=== PATIENT | male | born 1960 | race Caucasian/White ===

== ENCOUNTER 2021-11-24 14:44 | Outpatient (CLI) | payer MEDICAID, SELFPAY ==
--- NOTE | 2021-11-24 14:57 | RAD_ITS ---
History: PAIN Thoracic spine views: Findings: No fracture, subluxation or paraspinal mass. Diffuse vertebral body osteophytosis without disc space narrowing. No focal bone lesion. IMPRESSION: Mild diffuse spondylosis. at 1615 Reported and signed by: Asa Browning MD Electronically Signed: Asa Browning MD at 16:14 EST , RAD/Thoracic Spine 3 Views
== END 2021-11-24 23:59 | disposition short-term general hospital (02) ==
LOC: MTRAD 14:50
PROVIDERS: PCP Family Medicine; Referring Provider Anesthesiology Pain Medicine; Visit Provider Anesthesiology Pain Medicine
DX: R07.82 Intercostal pain (principal)
CPT/HCPCS: 72072

== ENCOUNTER 2021-12-10 16:22 | Inpatient (IN) | payer MEDICAID, SELFPAY ==
[2021-12-10] VITALS (13 sets, daily range): BP systolic 69–129; BP diastolic 54–115; PULSE 112–151; RESP 31–40; TEMP 36.5–36.8; O2SAT 91–100; BMI 28.2; BMI 28.4
--- NOTE | 2021-12-10 16:32 | EKG12_ITS ---
Test Reason : SOB Blood Pressure : / mmHG Vent. Rate : 149 BPM Atrial Rate : 149 BPM P-R Int : 122 ms QRS Dur : 106 ms QT Int : 266 ms P-R-T Axes : 070 099 -06 degrees QTc Int : 418 ms Sinus tachycardia Right ventricular hypertrophy with repolarization abnormality T wave abnormality, consider inferior ischemia Abnormal ECG Confirmed by KRISTINA CHUNG, JOSE ANTONIO ([id number]), purchase request editor TAJ MERAZ ([id number]) on 12/11/2021 10:23:07 A M Referred By: STEVENSON/MADELEINE Confirmed By:SUKHI ACEVEDO MD
--- NOTE | 2021-12-10 16:35 | NURSING ---
NO OLD EKGS
--- NOTE | 2021-12-10 16:43 | ED.VIS.DYS ---
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 Sees pain specialist. Smokes a pack a day and drinks 4 beers a day. States has been short of breath last 2 to 3 days. Subjective fever with diaphoresis. Also diarrhea today no melena. No chest pain. 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 Is currently on no blood thinners. He said that was years ago related to trauma. He said no recent hospitalizations. Denies any leg pain or swelling. No hemoptysis. PE Risk Factors: Positive for Prior DVT or PE; Negative for Cancer, OCP + Smoking + > 35, Recent immobilization, Recent surgery and Recent travel Prior similar symptoms: No Recent Illness/Hospitalization: No PFSH PFSH Medical History Alcohol abuse Anxiety Hearing loss, left Pulmonary embolism Smoker Home Medications gabapentin 600 mg PO TID 12/10/21 [History Last Taken 12/09/21] lidocaine 1 - 3 patch TRANSDERMAL Q12H 12/10/21 [History Last Taken 12/09/21] lorazepam 0.25 mg PO DAILY PRN 12/10/21 [History Last Taken Unknown] Allergy/AdvReac Type Severity Reaction Status Date / Time No Known Allergies Allergy Verified 12/10/21 16:22 Social History Smoking Status: Heavy Smoker (>10/day) ROS ROS ED ROS Narrative Fast heart rate. Shortness of breath. Diarrhea. Subjective fever. Review of Systems ROS Unobtainable: Denies due to encephalopathy Constitutional Constitutional ED: Reports fever(s); Denies chills or sweats Eyes Eyes: Denies change in vision ENT ENT ED: Denies ear pain Cardiovascular Cardiovascular: Reports palpitations and racing heartbeat; Denies chest pain Respiratory/Chest Respiratory/Chest: Reports dyspnea; Denies cough or sputum Gastrointestinal Gastrointestinal: Reports diarrhea; Denies abdominal pain, nausea or vomiting Genitourinary Genitourinary ED: Denies dysuria Musculoskeletal Musculoskeletal: Denies myalgias Integumentary Denies rash Neurologic Neurologic: Denies headache(s) Psychiatric Psychiatric: Denies depression Endocrine Endocrinology: Denies polyuria Hematologic/Lymphatic Hematologic/Lymphatic: Denies easy bruising Allergic/Immunologic Allergic/Immunologic ED: Denies urticaria EXAM Physical Exam Narrative Exam Narrative: Middle-aged male blood pressure is low at 94/64 his heart rate is 151. He is afebrile. His initial room air pulse ox is 91% borderline hypoxic on 3 L 95%. He does not look septic or toxic. H EENT exam unremarkable neck nontender no thyromegaly. No lymphadenopathy. Lungs clear to auscultation bilaterally. Heart tachycardic rate about 150 no murmur. Chest wall nontender. Abdomen soft nontender. Normal bowel sounds no peritoneal signs. Moving all 4 extremities. Calves nontender without edema or cords. Normal motor strength both upper and lower extremities. Back nontender. Thank you Const Vital Signs: 12/10/21 16:25 12/10/21 16:29 12/10/21 16:41 Temperature 98.2 F 98.2 F Temperature Source Oral Oral Pulse Rate 151 H 148 H Respiratory Rate 39 H 34 H Respiratory Effort Short of Breath Blood Pressure 94/64 95/68 Blood Pressure Mean 74 77 Pulse Ox 91 95 95 Oxygen Delivery Method Room Air Nasal Cannula Nasal Cannula Oxygen Flow Rate (L/min) 3 3 Positive well nourished and well developed; Negative for obese, cachectic, contractures or unkempt General Appearance ED: well developed and NAD; Negative for unkempt, cachectic, contractures or pallor Nutritional Appearance: Negative for cachectic or obese HEENT Reports moist mucous membranes atraumatic; Negative for trauma Eyes PERRL and EOMs intact bilaterally Neck no lymphadenopathy, supple, no meningeal signs and no JVD General: Negative for tenderness Resp normal respiratory effort and clear to auscultation bilaterally Auscultation: Negative for rales, rhonchi or wheezes Cardio regular rhythm, S1 normal heart sound, S2 normal heart sound and no murmurs; Negative for regular rate Rate: tachycardic GI non-tender, non-distended and no masses Auscultation: normoactive bowel sounds Palpation: soft; Negative for tender, guarding or rebound tenderness present Back/Spine no CVA tenderness and normal to inspection General Back: Negative for CVA tenderness or tenderness Extremity normal to inspection General Extremety ED: Yes edema; Negative for tenderness General Extremity: edema Neuro oriented x3 Sensorium / Orientation: alert, oriented to person, oriented to place and oriented to time; Negative for orientation impaired, confused, lethargic or stuporous Motor Exam: strength 5/5 throughout Psych mental status grossly normal Appearance: Negative for unkempt Thought Process: normal thought process Skin no wounds and No skin turgor normal General Skin Exam: Negative for jaundice or pallor Lesions: no lesions Rashes: no rashes MDM MDM MDM Narrative Medical decision making narrative: 60-year-old male tachycardic and hypotensive with borderline hypoxia/shortness of breath last several days. Prior history of DVT and PE currently on no blood thinners. This may be secondary dysrhythmia like A. fib or flutter could be secondary to infectious etiology or PE. Undergoing cardiac work-up along with a D-dimer chest x-ray and EKG. Patient will be given Identicard because his EKG is a tachycardia at 149 1 chest fluid ounce to see if I can determine the exact rhythm. Repeat exam patient doing better but still ill at 6:45 PM. Heart rate around 130s received almost a liter of fluid again a second. His current pressure is 92/65. Second IV will be started. I believe he is a left upper lobe pneumonia and is septic from it. He will be started on IV antibiotics and admitted. Most likely will need to go to the ICU. Also the patient was given Identicard to try to identify his rhythm because it was between either sinus tachycardia versus A. fib or flutter he was given Identicard and his heart rate slowed about 120 and he seemed to have P waves with sinus a sinus tachycardia due to his sepsis. I have spoken to the hospitalist at 7:15 PM patient will be admitted to the ICU. Lab Data Attestation: I reviewed the patient's lab results. Lab results narrative: CBC showed elevated white count 14.7. H&H of 16 and 49. Platelets 185. Electrolytes show sodium 134. Gap 11 BUN 23 creatinine 2. Troponin is elevated 335. D-dimer is elevated at 15.19. Due to his creatinine of 2 I cannot do a CTA of his chest at this time. Lactic acid is elevated 3.5. And his TSH is normal at 2.4. Labs: Laboratory Results - last 24 hr 12/10/21 12/10/21 12/10/21 16:30 16:30 16:30 WBC 14.7 H RBC 5.49 Hgb 16.9 H Hct 49.9 MCV 90.9 MCH 30.8 MCHC 33.9 RDW Std Deviation 49.1 H RDW Coeff of Tone 14.6 Plt Count 185 MPV 10.9 Immature Gran % (Auto) 1.100 H Neut % (Auto) 81.2 H Lymph % (Auto) 10.3 L [place] % (Auto) 7.0 Eos % (Auto) 0.1 Baso % (Auto) 0.3 Absolute Neuts (auto) 12.0 H Absolute Lymphs (auto) 1.52 Nucleated RBC % 0 D-Dimer Quant (PE/DVT) 15.19 H* Sodium 134 L Potassium 4.4 Chloride 100 Carbon Dioxide 23.0 Anion Gap 11 BUN 23 H Creatinine 2.05 H Estim Creat Clear Calc 40.06 Est GFR (MDRD) Af Amer 43 L Est GFR (MDRD) Non-Af 35 L BUN/Creatinine Ratio 11.2 Glucose 209 H Lactic Acid Calcium 9.6 Troponin I High Sens 335 H* TSH 12/10/21 12/10/21 12/10/21 16:30 16:30 17:56 WBC RBC Hgb Hct MCV MCH MCHC RDW Std Deviation RDW Coeff of Tone Plt Count MPV Immature Gran % (Auto) Neut % (Auto) Lymph % (Auto) [place] % (Auto) Eos % (Auto) Baso % (Auto) Absolute Neuts (auto) Absolute Lymphs (auto) Nucleated RBC % D-Dimer Quant (PE/DVT) Sodium Potassium Chloride Carbon Dioxide Anion Gap BUN Creatinine Estim Creat Clear Calc Est GFR (MDRD) Af Amer Est GFR (MDRD) Non-Af BUN/Creatinine Ratio Glucose Lactic Acid 3.5 H* Calcium Troponin I High Sens 510 H* TSH 2.41 Cancelled Radiography Chest X-Ray - ED: 1 View and Read by ED Physician Diagnostic Testing: Clinical Impression(s) from Imaging Studies Chest X-Ray 12/10/21 16:55 IMPRESSION: Patchy left lung opacities may represent pneumonia and small effusion. Electronically Signed: Adonis Zaarte MD at 17:32 EST , Pneumonia. This could also be Covid pneumonitis but it is only unilateral on the left.Portable chest x-ray single view interpreted myself and radiologist looks like left upper lobe. I think that is less likely. This to be treated as a bacterial pneumonia until proven otherwise. Rhythm Strip Rhythm Strip: Tachycardia Rate: 149 Ectopy: None EKG Initial EKG: Attestation: I personally reviewed and interpreted this EKG as follows: Interpretation: No Acute Injury Pattern Comments: Tachycardia rate of 149. Inverted T waves in the anterolateral leads and also in lead III. No ST elevation. Prior EKG tracings: not available for review Critical Care Time Critical care time (excluding procedures): 30-74 minutes, Including time spent:, Discussing w/Patient &/or Family/Grid Molder, Discussing w/Consultants, Arranging Admission or Transfer, Performing Direct Patient Care at Bedside and - (35 min) Discharge Plan Dx/Rx/DC Orders Clinical Impression: Left upper lobe pneumonia, Acute hypotension, Elevated troponin, Septic shock, Acute kidney injury Disposition Disposition: [facility]
[2021-12-10 16:44] LABS: Absolute Lymphocyte Count 1.52 X10^3/uL (0.83-4.51); Basophil# 0.04 X10^3/uL; Basophil% 0.3 % (0-1); Eosinophil# 0.01 X10^3/uL; Eosinophils% 0.1 % (0-5); Hematocrit 49.9 % (40-54); Hemoglobin 16.9 g/dL (13.0-16.5); Lymphocyte # 1.52 X10^3/ul (0.83-4.51); Lymphocyte % 10.3 % (19-41); Mean Corp Hgb Conc 33.9 g/dL (32-36); Mean Corpuscular Hgb 30.8 pg (27.0-32.0); Mean Corpuscular Volume 90.9 fL (80-94); Mean Platelet Vol. 10.9 fl (6.2-12.0); Monocyte# 1.03 X10^3/uL; NRBC Flagged by Analyzer 0 % (0-5); Neutrophil # 11.98 X10^3/uL (2.7-7.7); Neutrophil % 81.2 % (47-70); Platelet Count 185 K/mm3 (150-450); RBC Distribution Width CV 14.6 % (11.6-14.6); RBC Distribution Width SD 49.1 fl (35.1-43.9); Red Blood Count 5.49 M/mm3 (4.6-6.2); White Blood Count 14.7 K/mm3 (4.4-11.0)
[2021-12-10] MEDS: Adenosine 6 MG/2 ML Syringe IV (16:51)
--- NOTE | 2021-12-10 16:55 | RAD_ITS ---
STUDY: X-RAY CHEST REASON FOR EXAM: Male, 61 years old. Chest pain TECHNIQUE: Single frontal view of the chest. COMPARISON: None. FINDINGS: Patchy left lung opacities may represent pneumonia and small effusion. Normal size heart. Normal mediastinum and sofia. Normal visualized pulmonary arteries. Normal visualized aortic arch and descending thoracic aorta. Normal visualized thoracic spine. Normal visualized ribs, clavicles, and shoulders. There is no demonstrated abnormality of the visualized soft tissue structures of the upper abdomen. RAD/Chest 1 View (Portable) IMPRESSION: Patchy left lung opacities may represent pneumonia and small effusion. Electronically Signed: Adonis Zarate MD at 17:32 EST ,
[2021-12-10 17:10] LABS: Anion Gap 11 (5-15); BUN 23 mg/dL (7-18); BUN/Creat Ratio 11.2 RATIO (10-20); Calcium,Total 9.6 mg/dL (8.5-10.1); Chloride 100 mmol/L (98-107); Creatinine, Serum 2.05 mg/dL (0.70-1.30); EST Glomerular Filtration Rate 35 mL/min (>60); Est Glom Filt Rate - Afr Amer 43 mL/min (>60); Estimated Creatinine Clearance 40.06 ml/min; Glucose 209 mg/dL (74-106); Potassium 4.4 mmol/L (3.5-5.1); Sodium Level 134 mmol/L (136-145); Troponin-I HS 335 pg/mL (3.0-78.0)
[2021-12-10] MEDS: 0.9% Normal Saline 1,000 ML 999 ML IV ×2 (17:17→18:56)
[2021-12-10 17:20] LABS: Lactic Acid 3.5 mmol/L (0.4-1.9)
[2021-12-10 17:21] LABS: D-Dimer Quantitative (DVT/PE) 15.19 FEU/ug/m (0.27-0.49)
[2021-12-10 17:56] LABS: Thyroid Stim Hormone (TSH) 2.41 uIU/mL (0.358-3.74)
[2021-12-10 18:51] LABS: Troponin-I HS 510 pg/mL (3.0-78.0)
[2021-12-10] MEDS: Ceftriaxone 1 GM/50 ML BAG IV (19:17)
--- NOTE | 2021-12-10 19:23 | HP.PCM.HOS_ITS ---
HPI - General General Date of Admission: 12/10/21 Date of Service: 12/10/21 Chief Complaint: SOB, left-sided chest pain ongoing for 6 days HPI Narrative LESA SWAN, is a 61 M who presents with the above ongoing for 6 days. Patient had history of PE, unclear etiology of a year ago, was on anticoagulation for about 4 months and taken off. He also has left-sided flank neuropathic pain from shingles. Patient complains associated shortness of breath and fatigue ongoing for about 6 days. He denied any fever or chills but admits to cough productive of clear sputum. He came to the hospital at the insistence of his daughter because he felt weak and light headed. He admits some diarrhea, 1 episode today but no nausea or vomiting. He is a smoker and smokes about 1 to 2 packs of cigarettes a day. His admitting vitals showed blood pressure of 94/64, heart rate was 151, respiratory rate was 39, SPO2 was 91% on room air, improved to 96% on 3 L of oxygen. Admitting blood work showed WBC count of 14.7, with left shift Hb of 16.9, p latelet count of 185, INR is 1.2, D-dimer is 15.19. Sodium is 134, potassium 4.4, chloride 100, bicarbonate 23, BUN 23, creatinine 2.05, no previous creatinine to compare, glucose is 209, lactic acid is 3.5, troponin 335 and 510, TSH 2.4. Admitting chest x-ray shows patchy left lung opacities and a small effusion PFSH Medical History Alcohol abuse Anxiety Hearing loss, left Pulmonary embolism Smoker Home Medications gabapentin 600 mg PO TID 12/10/21 [History Last Taken 12/09/21] lidocaine 1 - 3 patch TRANSDERMAL Q12H 12/10/21 [History Last Taken 12/09/21] lorazepam 0.25 mg PO DAILY PRN 12/10/21 [History Last Taken Unknown] Allergy/AdvReac Type Severity Reaction Status Date / Time No Known Allergies Allergy Verified 12/10/21 16:22 Family History (Updated 12/10/21 @ 20:[address] Nazanin Carmona MD) Mother Cancer ovarian Social History (Updated 12/10/21 @ 20:[address] Nazanin Carmona MD) household members: none housing: house current occupational status: employed Smoking Status: Heavy Smoker (>10/day) alcohol intake: current substance use type: does not use ROS ROS Narrative Constitutional: Reports: Malaise, Weakness, Fatigue. Denies: Anorexia, Chills, Fever, Night Sweats, Weight Change Eyes: Denies: Blurred vision, Cataracts, Conjunctivae Inflammation, Pain, Redness, Vision Change HEENT: Denies: Difficulty Hearing, Difficulty Swallowing, Head Aches, Hearing Changes, Sinus Congestion, Sinus Drainage Cardiovascular: Denies: Chest Pain, Orthopnea, Palpitations Respiratory: Denies: See HPI Gastrointestinal: Denies: Abdominal Pain, Nausea, Vomiting Genitourinary: Denies: Dysuria Musculoskeletal: Denies: Joint Pain, Joint stiffness, Joint swelling, Joint Tenderness Skin: Denies: Rash, Wounds Neurological: Denies: Numbness, Tingling, Focal weakness Vital Signs Vital Signs Vital Signs: 12/10/21 16:25 12/10/21 16:29 12/10/21 16:41 Temperature 98.2 F 98.2 F Temperature Source Oral Oral Pulse Rate 151 H 148 H Respiratory Rate 39 H 34 H Respiratory Effort Short of Breath Blood Pressure 94/64 95/68 Blood Pressure Mean 74 77 Pulse Ox 91 95 95 Oxygen Delivery Method Room Air Nasal Cannula Nasal Cannula Oxygen Flow Rate (L/min) 3 3 Weight Weight: 89.3 kg Body Mass Index (BMI) 28.2 Physical Exam Narrative Physical exam: General: Alert, Oriented x3, Cooperative, appears to be in mild respiratory distress, on 3 L of oxygen, Well developed HEENT: Atraumatic Oral: Moist Mucosa Neck: Supple Lungs: Diminished to auscultation Cardiovascular: HS I+II, regular, no murmurs Abdomen: Bowel Sounds Present, Soft, Non Tender Extremities: No edema Results Lab / Micro Data Result Diagrams: 12/10/21 16:30 12/10/21 16:30 Labs: Laboratory Results - last 24 hr 12/10/21 16:30: WBC 14.7 H, RBC 5.49, Hgb 16.9 H, Hct 49.9, MCV 90.9, MCH 30.8, MCHC 33.9, RDW Std Deviation 49.1 H, RDW Coeff of Tone 14.6, Plt Count 185, MPV 10.9, Immature Gran % (Auto) 1.100 H, Neut % (Auto) 81.2 H, Lymph % (Auto) 10.3 L, [place] % (Auto) 7.0, Eos % (Auto) 0.1, Baso % (Auto) 0.3, Absolute Neuts (auto) 12.0 H, Absolute Lymphs (auto) 1.52, Nucleated RBC % 0 12/10/21 16:30: Sodium 134 L, Potassium 4.4, Chloride 100, Carbon Dioxide 23.0, Anion Gap 11, BUN 23 H, Creatinine 2.05 H, Estim Creat Clear Calc 40.06, Est GFR (MDRD) Af Amer 43 L, Est GFR (MDRD) Non-Af 35 L, BUN/Creatinine Ratio 11.2, Glucose 209 H, Calcium 9.6, Troponin I High Sens 335 H* 12/10/21 16:30: D-Dimer Quant (PE/DVT) 15.19 H* 12/10/21 16:30: Lactic Acid 3.5 H* 12/10/21 16:30: TSH 2.41 12/10/21 17:56: Troponin I High Sens 510 H*, TSH Cancelled Rhythm Strip Rhythm Strip: Tachycardia Rate: 149 Ectopy: None Radiology Impression Chest X-Ray 12/10/21 16:55 IMPRESSION: Patchy left lung opacities may represent pneumonia and small effusion. Electronically Signed: Adonis Zraate MD at 17:32 EST , Assessment & Plan Assessment/Plan (1) Elevated troponin: (2) Acute kidney injury: (3) Lactic acidosis: (4) Suspected pulmonary embolism: (5) Pneumonia: PLAN: 1. Acute hypoxic respiratory insufficiency secondary to suspected Acute PE/left sided pneumonia Patient is currently on 3 L of oxygen. Not on oxygen at home His COVID-19 rapid antigen test is negative Continue to encourage use of incentive spirometer, breathing treatments 2. Acute NSTEMI secondary to suspected Acute PE Troponins are elevated, EKG shows sinus tachycardia Cannot get the CTA of the chest because of elevated creatinine VQ scan in a.m, 2d-ECHO, pulmonology consult 3. BRODERICK vs CKD, unclear etiology, no previous creatinine to compare Admitted with creatinine of 2.05, will check labs in a.m. Check UA, urine creatinine and urine sodium 4. Hypotension, relative hypotension, fluid responsive Likely secondary to Acute PE vs septic shock. Continue on IVF 5. Pneumonia, severe, unclear if patient is in septic shock. No fever seen qSOFA 2. Started on IV ceftriaxone and azithromycin in ED Will continue on IV zosyn; hold off on starting IV vancomycin for now on account of BRODERICK Continue with aggressive IVF, urine streptococcal and legionella antigen test 6. Nicotine dependence, continue on nicotine replacement 7. Alcohol abuse, continue to monitor on CIWA protocol 8. DVT PPx - on heparin drip 9. Code status - Full code I discussed and explained in details the various types of CODE STATUS-full code, DNR CCA, DNR CC. Patient chose to be full code and wants aggressive cardiopulmonary resuscitation. He stated that his healthcare power of deputy attorney general will be his brother, Katey Prabhakar Time spent discussing CODE STATUS 16 minutes Charges/Coding Visit Charges Inpatient E&M: 37880 Init Hosp L3 Procedures Hospitalists Procedures: 45857 Advncd Care Plan 30 Min
--- NOTE | 2021-12-10 19:25 | CASEMGMT ---
LUBNA GUADARRAMA Assessment: RN CM to room to meet with patient for initial transition planning/care coordination assessment. RN THIERRY introduced self and role at [facility]. Patient voices understanding and consents to assessment at this time. No visitors present at bedside. Patient is alert and oriented and answers all questions appropriately, reclined on ER cart with oxygen per [place]. Care providers, pharmacy, and demographics verified/updated at this time. Admitting Dx: pneumonia, septic shock, BRODERICK PCP: Roberto Dowling Specialists: Joe- pain management Preferred Pharmacy: [facility] Insurance: [facility] Prescription Benefit: yes Living Will/HPOA: Patient denies having a living will or HPOA. LNOK: Brother Katey Ferreira Living Arrangements: Patient lives alone in single story, ground level duplex with 2 steps to enter the home with no handrail present. Patient states independent with ADLs prior to hospitalization. Patient ambulates independently without the use of an assistive device. Smoking/ETOH: Current smoker 1 ppd, daily ETOH use (admits to 4 beers/day), denies drug use Transportation: Patient drives self and denies transportation concerns. DME/HHC/SNF: Patient denies having any DME in the home and denies need for DME at this time. Denies previous HHC or SNF stays. Patient has no concerns with going home at time of discharge. CM to follow for any discharge planning/needs. Patient voices no concerns/needs at this time. Advised patient to ask for CM if any questions/concerns/needs arise. Voices understanding. Plan: home
--- NOTE | 2021-12-10 19:28 | ECHOD_ITS ---
Reason For Study: DYSPNEA/SOB Procedure This was a 2D Doppler, Color Flow transthoracic echocardiogram. Exam performed portable in ICU/CCU. Left Ventricle Normal LV size. The estimated ejection fraction is 55 %. Diastolic function is indeterminate. No regional wall motion abnormalities noted. Right Ventricle Severely dilated right ventricle. Moderately severe global right ventricular systolic dysfunction. Atria Normal left atrium. The right atrium is mildly enlarged. No doppler evidence for ASD. Mitral Valve There is no mitral valve stenosis. No mitral valve insufficiency. Tricuspid Valve There is no tricuspid stenosis. Mild tricuspid valve insufficiency. Pulmonary artery systolic pressure is 60-65 mmHg. Aortic Valve Trisinus/trileaflet aortic valve. There is no aortic stenosis. No aortic valve insufficiency. Pulmonic Valve There is no pulmonic valvular stenosis. Trivial pulmonic valve insufficiency. Great Vessels Normal aortic root. Pericardium/Pleural No pericardial effusion. MMode/2D Measurements & Calculations LVIDd: 4.1 cm IVSd: 1.2 cm Ao root diam: 3.8 cm LVIDs: 3.2 cm LVPWd: 1.2 cm RVDd: 4.5 cm FS: 21.6 % LAV(MOD-bp): 22.0 ml LA A4 area: 9.9 cm2 LA dimension(2D): 3.3 cm LAV(MOD-bp) Indexed: 10.6 ml/m2 LAV(MOD-sp2): 26.4 ml LAV(MOD-sp4): 17.1 ml RA A4 area: 17.0 cm2 Doppler Measurements & Calculations MV E max kristopher: 31.1 cm/sec Lat Peak E' Kristopher: 8.2 cm/sec Med Peak E' Kristopher: 3.7 cm/sec MV A max kristopher: 65.7 cm/sec E/E' lat: 3.8 E/E' med: 8.5 MV E/A: 0.47 Ao V2 max: 97.9 cm/sec LV V1 max: 82.9 cm/sec PA V2 max: 79.1 cm/sec Ao max P.8 mmHg LV V1 max P.8 mmHg PI end-d kristopher: 113.4 cm/sec TR max kristopher: 394.8 cm/sec TR max P.4 mmHg ECHO/Echo Complete Interpretation Summary The estimated ejection fraction is 55 %. Diastolic function is indeterminate. Severely dilated right ventricle. Moderately severe global right ventricular systolic dysfunction. Pulmonary artery systolic pressure is 60-65 mmHg. Ordering Physician: Nazanin Carmona Referring Physician: ANCELMO BEE Performed By: Ashlee Moralez, KAREN, RVT
[2021-12-10 20:01] LABS: International Normalized Ratio 1.2; Partial Thromboplast Time 31.4 Seconds (24.1-36.2); Prothrombin Time (Protime)PT. 14.8 SECONDS (11.7-14.9)
[2021-12-10] MEDS: 0.9% Normal Saline 1,000 ML 500 ML IV (20:52)
[2021-12-10 20:59] LABS: Reflex Lactate? Y
[2021-12-10] MEDS: Heparin Injection (Vial) 5,000 UNIT/ML VIAL 6000 UNIT IV (21:57)
[2021-12-10] MEDS: Lidocaine 5% Patch TOPICAL (22:12)
[2021-12-10] MEDS: Acetaminophen 325 MG Tablet 650 MG PO (22:18)
[2021-12-10] MEDS: 0.9% Normal Saline 1,000 ML 150 ML IV (22:24)
[2021-12-10 22:51] LABS: Bedside Glucose 170 mg/dL (70-110)
[2021-12-10 23:22] LABS: Lactic Acid 3.8 mmol/L (0.4-1.9)
[2021-12-11] VITALS (24 sets, daily range): BP systolic 98–123; BP diastolic 70–99; PULSE 91–123; RESP 16–31; TEMP 36.2–37; O2SAT 91–98
[2021-12-11 04:38] LABS: Absolute Lymphocyte Count 2.41 X10^3/uL (0.83-4.51); Absolute Neutrophil Count 11.2 X10^3/uL (2.0-7.7); Basophil# 0.02 X10^3/uL; Basophil% 0.1 % (0-1); Hematocrit 38.4 % (40-54); Hemoglobin 12.6 g/dL (13.0-16.5); Lymphocyte # 2.41 X10^3/ul (0.83-4.51); Mean Corp Hgb Conc 32.8 g/dL (32-36); Mean Corpuscular Hgb 30.2 pg (27.0-32.0); Mean Corpuscular Volume 92.1 fL (80-94); Mean Platelet Vol. 11.5 fl (6.2-12.0); Monocyte# 1.33 X10^3/uL; Monocyte% 8.8 % (0-10); NRBC Flagged by Analyzer 0 % (0-5); Neutrophil # 11.21 X10^3/uL (2.7-7.7); Neutrophil % 74.3 % (47-70); Platelet Count 128 K/mm3 (150-450); RBC Distribution Width CV 14.8 % (11.6-14.6); RBC Distribution Width SD 50.1 fl (35.1-43.9); Red Blood Count 4.17 M/mm3 (4.6-6.2); White Blood Count 15.1 K/mm3 (4.4-11.0)
[2021-12-11 04:52] LABS: Partial Thromboplast Time 68.4 Seconds (24.1-36.2)
[2021-12-11 04:55] LABS: Squamous Epithelial Cells - UA 0 SEEN /hpf (0-5)
[2021-12-11 04:56] LABS: Color, Urine Amber (Yellow); Glucose, Dipstick Normal (Normal); Ketone-Dipstick 5 mg/dl (Negative); Leukocyte Esterase-Dipstick 25 /ul (Negative); Nitrite-Dipstick Positive (Negative); Occult Blood-Urine 10 /ul (Negative); Protein-Dipstick 100 mg/dl (Negative); Specific Gravity, Urine 1.025 (1.002-1.030); Urine Clarity Clear (Clear); Urine Urobilinogen 4 mg/dl (Normal)
[2021-12-11 04:58] LABS: Urine Bilirubin Dipstick 3 mg/dL (Negative)
[2021-12-11 05:07] LABS: Urine Sodium 27 mmol/L (Not Establ.)
[2021-12-11 05:09] LABS: Amorphous Sediment 1+; Bacteria 2+ /hpf (None Seen); Mucous, Urine 1+ /hpf (<or=2+); Red Blood Cells-Urine 0-5 SEEN /hpf (0-5); White Blood Cells 0-5 SEEN /hpf (0-5)
[2021-12-11 05:28] LABS: ALB/GLOB Ratio 0.5 RATIO (0.9-2.4); AST(SGOT) 209 U/L (15-37); Alanine Aminotransfer ALT/SGPT 170 U/L (16-61); Albumin, Serum 2.1 g/dL (3.2-5.0); Alkaline Phosphatase 160 U/L (45-117); Anion Gap 7 (5-15); BUN 28 mg/dL (7-18); BUN/Creat Ratio 15.4 RATIO (10-20); Chloride 108 mmol/L (98-107); Creatinine, Serum 1.82 mg/dL (0.70-1.30); EST Glomerular Filtration Rate 41 mL/min (>60); Est Glom Filt Rate - Afr Amer 49 mL/min (>60); Estimated Creatinine Clearance 45.12 ml/min; Globulin 4.2 g/dL (2.2-4.2); Glucose 127 mg/dL (74-106); Potassium 4.7 mmol/L (3.5-5.1); Protein, Total 6.3 g/dL (6.4-8.2); Sodium Level 137 mmol/L (136-145)
[2021-12-11] MEDS: 0.9% Normal Saline 1,000 ML 150 ML IV ×3 (05:54→18:29)
[2021-12-11] MEDS: Ipratropium/Albuterol Sulfate 3 ML AMPUL.NEB INHALATION ×3 (07:24→14:43)
--- NOTE | 2021-12-11 08:11 | VDLE_ITS ---
Reason For Study: SOB RIGHT LEFT GSV is normal. GSV is normal. CFV is compressible, spontaneous, competent CFV is compressible, spontaneous, competent, and demonstrates pulsatile venous flow. and demonstrates pulsatile venous flow. FV is compressible, spontaneous, competent FV is partially compressible with decreased and demonstrates pulsatile venous flow. flow. POP V is compressible, spontaneous, POP V, T/P Trunk, PTV, Peroneal V, and Soleus competent and demonstrates pulsatile venous V are dilated and noncompressible. flow. PTV is compressible. RT PerV is compressible. Procedure This is a venous duplex using B-mode, color flow and spectral Doppler. Exam performed portable in ICU/CCU. The exam was diagnostic. A preliminary report was called and/or faxed to the pt's RN. VL/Venous Duplex US - Thang Extrem Interpretation Summary Pulsatile flow bilateral lower extremity deep venous system consistent with pro ximal venous hypertension or occlusion. Clinical correlation would be appropriate. No evidence for acute deep venous thrombosis right lower extremity Acute deep venous thrombosis left femoral, popliteal, tibioperoneal trunk, post erior tibial, peroneal, and soleus veins Patent and compressible bilateral great saphenous veins Ordering Physician: Dragan Moreno Performed By: Nehemias Jason RVT
--- NOTE | 2021-12-11 08:18 | EX.PCM.CONCC ---
Assessment & Plan Assessment/Plan (1) Left upper lobe pneumonia: (2) Acute kidney injury: (3) Septic shock: PLAN: RECOMMENDATIONS: 1. Continue fluid resuscitation 2. Discontinue VQ scan. Possible CTA if renal function improves 3. Obtain echocardiogram and lower extremity Dopplers in the interim 4. Agree with heparin drip and antibiotics 5. Wean supplemental oxygen as tolerated. Walking oximetry prior to discharge 6. Monitor for signs or symptoms of withdrawal from alcohol 7. Potentially transfer from the intensive care unit if blood pressures remain stable through the day IMPRESSIONS: 1. Acute hypoxic respiratory insufficiency Unclear etiology at this time. Patient does have a history of PE in the past and this is definitely a possibility. However, patient is reporting a fever, leukocytosis and a productive cough with a left-sided infiltrate. Agree with antibiotics. Renal function precludes a CTA at this time, but will obtain an echocardiogram to evaluate pulmonary artery pressures on lower extremity Dopplers. If patient is found to have DVTs, lifelong anticoagulation would be recommended. Patient should remain on a heparin drip for now. If renal function improves, CTA may be helpful. Patient may have an element of concomitant COPD, but this would need to be evaluated as an outpatient with pulmonary function testing. Wean supplemental oxygen as tolerated. Patient will need a walking oximetry prior to discharge. 2. Acute versus chronic kidney disease Unclear baseline. Patient has not been here previously. Patient has had some response to fluid resuscitation. We will continue to monitor renal function closely. BUN to creatinine ratio suggests an element of chronic kidney disease. 3. Possible NSTEMI versus supply demand mismatch Patient with hypoxia on presentation and decreased filtration with elevated creatinine. Will obtain an echocardiogram for evaluation. Likely not necessary to obtain a cardiology consult at this time. Patient is on a heparin drip. Patient does have multiple risk factors for coronary artery disease. 4. Hypotension Fluid responsive. Multiple possible etiologies including cardiogenic from acute PE, septic shock, and dehydration. Patient has responded to fluid resuscitation. We will continue to monitor. 5. Tobacco abuse/alcohol abuse/chronic pain syndrome Complicates care, management, recovery and prognosis. Monitor for signs and symptoms of withdrawal. Okay to continue with baseline lidocaine patch, but caution with gabapentin given renal function. HPI Consult Data Date of Consult: 12/11/21 HPI Narrative HPI Narrative: LESA SWAN is a 61 M, with past medical history listed below, who presents to [facility] on 12/10/2021 secondary to progressive shortness of breath on exertion. Patient does have a history of chronic pain secondary to shingles. Patient is also had a history of a prior PE following a work injury. Patient is not currently on blood thinners. Patient does smoke a pack a day, but had reported progressive shortness of breath over the previous 2 to 3 days. Patient had a subjective fever and reported a cough productive of white to pale yellow sputum. On presentation to the ER, patient was afebrile, but tachycardic at 151 bpm and hypotensive at 94/64. Patient was noted to be 91% on room air initially, but did eventually require 3 L nasal cannula to maintain saturations. Laboratory work-up showed a white blood cell count of 14.7 and a hemoglobin of 16.9. D-dimer was elevated at 15.19 and creatinine was elevated at 2.05. Patient's troponin was slightly elevated at 335 and lactate was 3.5. A repeat troponin did show slight elevation to 510. Chest x-ray showed a left-sided infiltrate with atelectasis versus a small effusion on my personal review. Patient was started on IV antibiotics and antibiotics. Patient did have a rapid ventricular rate and was given adenosine that showed sinus tachycardia. Since being in the intensive care unit, patient has done okay. Patient's oxygenation has improved. Patient did have marginal blood pressures at first, but did respond to fluid resuscitation. Patient subjectively feels slightly improved compared to previous. Patient reports a sensation of a pulled muscle on the left side of his chest. Patient had reported some mild retching. Patient did not report any hemoptysis and thought this was important as this was a symptom he had with a previous PE following a work injury. Patient does have an extensive history of alcohol and tobacco use. 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 Patient does not require supplemental oxygen at baseline. Patient states that he has not had issues with withdrawal, but does drink 4-6 beers per day. Patient is not aware of any previous kidney dysfunction. Patient does have chronic pain syndrome treated with a lidocaine patch. Patient also reports issues with anxiety. Patient denies any dysuria or recent trauma. Review of systems otherwise negative from a constitutional, HEENT, respiratory, cardiovascular, GI, genitourinary, musculoskeletal, skin, neurologic, psychiatric and hematologic system unless stated above. [facility] Medical History Alcohol abuse Anxiety Hearing loss, left Pulmonary embolism Smoker Home Medications gabapentin 600 mg PO TID 12/10/21 [History Last Taken 12/09/21] lidocaine 1 - 3 patch TRANSDERMAL Q12H 12/10/21 [History Last Taken 12/09/21] lorazepam 0.25 mg PO DAILY PRN 12/10/21 [History Last Taken Unknown] Allergy/AdvReac Type Severity Reaction Status Date / Time No Known Allergies Allergy Verified 12/10/21 16:22 Family History Mother Cancer ovarian Social History household members: none housing: house current occupational status: employed Smoking Status: Heavy Smoker (>10/day) alcohol intake: current substance use type: does not use ROS ROS Narrative See HPI Physical Exam Const alert, oriented x3 and no apparent distress Constitutional Narrative: No conversational dyspnea General Appearance: cooperative and well developed HEENT normocephalic, head/scalp atraumatic and moist oral mucous membranes Eyes PERRL, EOMs intact bilaterally, conjunctivae normal and no scleral icterus Neck full ROM Chest Chest: abnormal inspection of the chest increased A-P diameter and symmetrical chest wall rise; Negative for crepitus Resp Auscultation: diminished lung sounds; Negative for rales, rhonchi or wheezes Cardio regular rate, regular rhythm, S1 normal heart sound, S2 normal heart sound, no murmurs, no rub and no gallops GI normal to inspection, nondistended, normoactive bowel sounds Extremity no clubbing, cyanosis or edema Skin no rashes or lesions noted Neuro oriented x3, CN's II-XII intact bilaterally and moves all extremities Psych cooperative and affect normal Appearance: well kempt Lab / Micro Data Result Diagrams: 12/11/21 04:25 12/11/21 04:25 Labs: Laboratory Results - last 24 hr 12/10/21 16:20: Hemoglobin A1c 5.0 12/10/21 16:30: WBC 14.7 H, RBC 5.49, Hgb 16.9 H, Hct 49.9, MCV 90.9, MCH 30.8, MCHC 33.9, RDW Std Deviation 49.1 H, RDW Coeff of Tone 14.6, Plt Count 185, MPV 10.9, Immature Gran % (Auto) 1.100 H, Neut % (Auto) 81.2 H, Lymph % (Auto) 10.3 L, [place] % (Auto) 7.0, Eos % (Auto) 0.1, Baso % (Auto) 0.3, Absolute Neuts (auto) 12.0 H, Absolute Lymphs (auto) 1.52, Nucleated RBC % 0 12/10/21 16:30: Sodium 134 L, Potassium 4.4, Chloride 100, Carbon Dioxide 23.0, Anion Gap 11, BUN 23 H, Creatinine 2.05 H, Estim Creat Clear Calc 40.06, Est GFR (MDRD) Af Amer 43 L, Est GFR (MDRD) Non-Af 35 L, BUN/Creatinine Ratio 11.2, Glucose 209 H, Calcium 9.6, Troponin I High Sens 335 H* 12/10/21 16:30: D-Dimer Quant (PE/DVT) 15.19 H* 12/10/21 16:30: Lactic Acid 3.5 H* 12/10/21 16:30: TSH 2.41 12/10/21 17:56: Troponin I High Sens 510 H*, TSH Cancelled 12/10/21 19:39: PT 14.8, INR 1.2, APTT 31.4 12/10/21 21:16: Lactic Acid 3.8 H* 12/10/21 22:46: POC Glucose 170 H 12/11/21 04:25: WBC 15.1 H, RBC 4.17 L, Hgb 12.6 L, Hct 38.4 L, MCV 92.1, MCH 30.2, MCHC 32.8, RDW Std Deviation 50.1 H, RDW Coeff of Tone 14.8 H, Plt Count 128 L, MPV 11.5, Immature Gran % (Auto) 0.800, Neut % (Auto) 74.3 H, Lymph % (Auto) 16.0 L, [place] % (Auto) 8.8, Eos % (Auto) 0.0, Baso % (Auto) 0.1, Absolute Neuts (auto) 11.2 H, Absolute Lymphs (auto) 2.41, Nucleated RBC % 0 12/11/21 04:25: Sodium 137, Potassium 4.7, Chloride 108 H, Carbon Dioxide 22.0, Anion Gap 7, BUN 28 H, Creatinine 1.82 H, Estim Creat Clear Calc 45.12, Est GFR (MDRD) Af Amer 49 L, Est GFR (MDRD) Non-Af 41 L, BUN/Creatinine Ratio 15.4, Glucose 127 H, Calcium 8.0 L, Total Bilirubin 0.60, AST 209 H, ALT 170 H, Alkaline Phosphatase 160 H, Total Protein 6.3 L, Albumin 2.1 L, Globulin 4.2, Albumin/Globulin Ratio 0.5 L 12/11/21 04:25: APTT 68.4 H 12/11/21 04:40: Urine Color Wandy, Urine Clarity Clear, Urine pH 5.0, Ur Specific [place] 1.025, Urine Protein 100 H, Urine Glucose (UA) Normal, Urine Ketones 5 H, Urine Occult Blood 10 H, Urine Nitrite Positive H, Urine Bilirubin 3 H, Urine Urobilinogen 4 H, Ur Leukocyte Esterase 25 H, Urine RBC 0-5 SEEN, Urine WBC 0-5 SEEN, Ur Squamous Epith Cells 0 SEEN, Amorphous Sediment 1+, Urine Bacteria 2+, Urine Mucus 1+ 12/11/21 04:40: Ur Random Sodium 27, Urine Creatinine 279.00 Micro: Microbiology 12/11/21 04:40 Urine, Random Legionella Antigen - Final 12/11/21 04:40 Urine, Random Streptococcus pneumoniae Antigen (M - Final 12/10/21 19:05 Nasal Secretion SARS-CoV-2 Antigen (Rapid) - Final Rhythm Strip Rhythm Strip: Tachycardia Rate: 149 Ectopy: None Radiology Impression Chest X-Ray 12/10/21 16:55 IMPRESSION: Patchy left lung opacities may represent pneumonia and small effusion. Electronically Signed: Adonis Zarate MD at 17:32 EST , Charges/Coding Visit Charges Inpatient E&M: 57439 Init Hosp L3
[2021-12-11] MEDS: Folic Acid 1 MG Tablet PO (09:21)
[2021-12-11] MEDS: Thiamine Hydrochloride 100 MG Tablet PO (09:22)
--- NOTE | 2021-12-11 10:13 | PCM.PN.HOSP ---
Subjective Subjective Doing well, no issues overnight. He feels a bit better today but still feels dehydrated Objective Data Objective Data Vital Signs: Vital Signs Temp Pulse Resp BP Pulse Ox 97.8 F 100 16 98/76 92 12/11/21 04:00 12/11/21 09:00 12/11/21 09:00 12/11/21 09:00 12/11/21 09:00 Oxygen Flow Rate (L/min) 2 Oxygen Delivery Method Nasal Cannula Weight: 204 lb 2.369 oz Body Mass Index (BMI) 28.4 Intake & Output: Intake and Output for Last 24 Hours 12/10/21 12/11/21 12/12/21 03:59 03:59 03:59 Intake Total 3855 / 3855 1000 / 1000 Output Total 375 / 375 Balance 3855 / 3480 625 / 625 Lab / Micro Data Result Diagrams: 12/11/21 04:25 12/11/21 04:25 Labs: Laboratory Results - last 24 hr 12/10/21 16:20: Hemoglobin A1c 5.0 12/10/21 16:30: WBC 14.7 H, RBC 5.49, Hgb 16.9 H, Hct 49.9, MCV 90.9, MCH 30.8, MCHC 33.9, RDW Std Deviation 49.1 H, RDW Coeff of Tone 14.6, Plt Count 185, MPV 10.9, Immature Gran % (Auto) 1.100 H, Neut % (Auto) 81.2 H, Lymph % (Auto) 10.3 L, [place] % (Auto) 7.0, Eos % (Auto) 0.1, Baso % (Auto) 0.3, Absolute Neuts (auto) 12.0 H, Absolute Lymphs (auto) 1.52, Nucleated RBC % 0 12/10/21 16:30: Sodium 134 L, Potassium 4.4, Chloride 100, Carbon Dioxide 23.0, Anion Gap 11, BUN 23 H, Creatinine 2.05 H, Estim Creat Clear Calc 40.06, Est GFR (MDRD) Af Amer 43 L, Est GFR (MDRD) Non-Af 35 L, BUN/Creatinine Ratio 11.2, Glucose 209 H, Calcium 9.6, Troponin I High Sens 335 H* 12/10/21 16:30: D-Dimer Quant (PE/DVT) 15.19 H* 12/10/21 16:30: Lactic Acid 3.5 H* 12/10/21 16:30: TSH 2.41 12/10/21 17:56: Troponin I High Sens 510 H*, TSH Cancelled 12/10/21 19:39: PT 14.8, INR 1.2, APTT 31.4 12/10/21 21:16: Lactic Acid 3.8 H* 12/10/21 22:46: POC Glucose 170 H 12/11/21 04:25: WBC 15.1 H, RBC 4.17 L, Hgb 12.6 L, Hct 38.4 L, MCV 92.1, MCH 30.2, MCHC 32.8, RDW Std Deviation 50.1 H, RDW Coeff of Tone 14.8 H, Plt Count 128 L, MPV 11.5, Immature Gran % (Auto) 0.800, Neut % (Auto) 74.3 H, Lymph % (Auto) 16.0 L, [place] % (Auto) 8.8, Eos % (Auto) 0.0, Baso % (Auto) 0.1, Absolute Neuts (auto) 11.2 H, Absolute Lymphs (auto) 2.41, Nucleated RBC % 0 12/11/21 04:25: Sodium 137, Potassium 4.7, Chloride 108 H, Carbon Dioxide 22.0, Anion Gap 7, BUN 28 H, Creatinine 1.82 H, Estim Creat Clear Calc 45.12, Est GFR (MDRD) Af Amer 49 L, Est GFR (MDRD) Non-Af 41 L, BUN/Creatinine Ratio 15.4, Glucose 127 H, Calcium 8.0 L, Total Bilirubin 0.60, AST 209 H, ALT 170 H, Alkaline Phosphatase 160 H, Total Protein 6.3 L, Albumin 2.1 L, Globulin 4.2, Albumin/Globulin Ratio 0.5 L 12/11/21 04:25: APTT 68.4 H 12/11/21 04:40: Urine Color [place], Urine Clarity Clear, Urine pH 5.0, Ur Specific [place] 1.025, Urine Protein 100 H, Urine Glucose (UA) Normal, Urine Ketones 5 H, Urine Occult Blood 10 H, Urine Nitrite Positive H, Urine Bilirubin 3 H, Urine Urobilinogen 4 H, Ur Leukocyte Esterase 25 H, Urine RBC 0-5 SEEN, Urine WBC 0-5 SEEN, Ur Squamous Epith Cells 0 SEEN, Amorphous Sediment 1+, Urine Bacteria 2+, Urine Mucus 1+ 12/11/21 04:40: Ur Random Sodium 27, Urine Creatinine 279.00 Micro: Microbiology 12/11/21 04:40 Urine, Random Legionella Antigen - Final 12/11/21 04:40 Urine, Random Streptococcus pneumoniae Antigen (M - Final 12/10/21 19:05 Nasal Secretion SARS-CoV-2 Antigen (Rapid) - Final Radiography Diagnostic Testing: Radiology Impression Chest X-Ray 12/10/21 16:55 IMPRESSION: Patchy left lung opacities may represent pneumonia and small effusion. Electronically Signed: Adonis Zarate MD at 17:32 EST , Rhythm Strip Rhythm Strip: Tachycardia Rate: 149 Ectopy: None Physical Exam Const alert, oriented x3 and no apparent distress General Appearance: cooperative HEENT normocephalic and moist oral mucous membranes Eyes PERRL, EOMs intact bilaterally and conjunctivae normal Neck supple and no JVD Resp normal respiratory effort, no retractions and no use of accessory muscles Auscultation: diminished lung sounds; Negative for crackles, rales, rhonchi or wheezes Cardio regular rate, regular rhythm, S1 normal heart sound, S2 normal heart sound and no murmurs GI soft to palpation, non-tender and non-distended; Negative for hepatosplenomegaly Extremity no clubbing, cyanosis or edema Skin no rashes or lesions noted Neuro no focal motor deficits and no sensory deficits noted Psych affect normal Appearance: appropriate Assessment & Plan Assessment/Plan (1) Elevated troponin: (2) Acute kidney injury: (3) Lactic acidosis: (4) Suspected pulmonary embolism: (5) Pneumonia: PLAN: 1. Acute hypoxic respiratory insufficiency secondary to suspected Acute PE versus left sided pneumonia/BRODERICK/acute non-STEMI ?Continue with oxygen as necessary ?We will cancel VQ scan and perform a CTA of the chest when his renal function allows ?Continue with IV fluids for his BRODERICK ?Elevated troponin may potentially be a non-STEMI versus demand ischemia from either pneumonia or PE, continue with heparin drip ?We will proceed with an echo and if there is any wall motion abnormality potentially get cardiology involved, will also obtain venous Dopplers of his legs ?Continue with antibiotics ?History of nicotine abuse, can continue with nicotine patch ?Alcohol abuse, continue CIWA protocol DVT: Heparin drip Charges/Coding Visit Charges Inpatient E&M: 02765 Subs Hosp L2
[2021-12-11 11:38] LABS: Partial Thromboplast Time 44.8 Seconds (24.1-36.2)
[2021-12-11 13:10] LABS: Bedside Glucose 157 mg/dL (70-110)
[2021-12-11 17:41] LABS: Bedside Glucose 115 mg/dL (70-110)
[2021-12-11 19:26] LABS: Partial Thromboplast Time 38.4 Seconds (24.1-36.2)
[2021-12-11] MEDS: Heparin Injection (Vial) 5,000 UNIT/ML VIAL IV (19:38)
[2021-12-11] MEDS: Acetaminophen 325 MG Tablet 650 MG PO (21:27)
[2021-12-11 21:56] LABS: Bedside Glucose 143 mg/dL (70-110)
[2021-12-12] VITALS (15 sets, daily range): BP systolic 109–120; BP diastolic 66–91; PULSE 108–120; RESP 15–20; TEMP 36.2–37; O2SAT 90–98
[2021-12-12] MEDS: 0.9% Normal Saline 1,000 ML 150 ML IV ×2 (01:16→05:37)
[2021-12-12 02:31] LABS: Partial Thromboplast Time 59.1 Seconds (24.1-36.2)
[2021-12-12 05:51] LABS: Absolute Neutrophil Count 9.3 X10^3/uL (2.0-7.7); Basophil# 0.03 X10^3/uL; Basophil% 0.2 % (0-1); Eosinophil# 0.01 X10^3/uL; Eosinophils% 0.1 % (0-5); Hematocrit 35.6 % (40-54); Lymphocyte % 21.8 % (19-41); Mean Corp Hgb Conc 33.7 g/dL (32-36); Mean Corpuscular Hgb 30.5 pg (27.0-32.0); Mean Corpuscular Volume 90.6 fL (80-94); Mean Platelet Vol. 11.7 fl (6.2-12.0); Monocyte# 0.95 X10^3/uL; Monocyte% 7.1 % (0-10); NRBC Flagged by Analyzer 0 % (0-5); Neutrophil # 9.33 X10^3/uL (2.7-7.7); Neutrophil % 70.2 % (47-70); Platelet Count 127 K/mm3 (150-450); RBC Distribution Width CV 14.8 % (11.6-14.6); RBC Distribution Width SD 49.4 fl (35.1-43.9); Red Blood Count 3.93 M/mm3 (4.6-6.2); White Blood Count 13.3 K/mm3 (4.4-11.0)
[2021-12-12 06:02] LABS: Anion Gap 7 (5-15); BUN 27 mg/dL (7-18); BUN/Creat Ratio 20.8 RATIO (10-20); Chloride 112 mmol/L (98-107); EST Glomerular Filtration Rate 60 mL/min (>60); Est Glom Filt Rate - Afr Amer 73 mL/min (>60); Estimated Creatinine Clearance 63.17 ml/min; Glucose 111 mg/dL (74-106); Potassium 3.9 mmol/L (3.5-5.1); Sodium Level 137 mmol/L (136-145)
[2021-12-12 06:55] LABS: Bedside Glucose 119 mg/dL (70-110)
[2021-12-12] MEDS: Ipratropium/Albuterol Sulfate 3 ML AMPUL.NEB INHALATION ×2 (07:21→11:31)
--- NOTE | 2021-12-12 07:30 | PN.CC_ITS ---
Assessment & Plan Assessment/Plan (1) Left upper lobe pneumonia: (2) Acute kidney injury: (3) Septic shock: PLAN: RECOMMENDATIONS: 1. Consider transition from heparin drip to 10 a inhibitor 2. Will need a repeat echocardiogram in 4 to 6 weeks to ensure resolution 3. Discharged on Combivent as needed would be appropriate 4. Walking oximetry later today. Okay to discharge if able to tolerate room air on ambulation 5. Outpatient follow-up in 4 weeks with nurse practitioner for PFTs and other work-up. IMPRESSIONS: 1. Acute hypoxic respiratory insufficiency secondary to probable PE Unclear etiology at this time. Patient does have a history of PE in the past and this is definitely a possibility. However, patient is reporting a fever, leukocytosis and a productive cough with a left-sided infiltrate. Agree with antibiotics until culture negative. Lower extremity Dopplers are showing a DVT and echocardiogram shows severe right heart strain. Patient may have an element of right heart strain secondary to chronic hypoxia, but will need a work-up as an outpatient. Patient can likely be transitioned over to a 10 a inhibitor. Patient was on Eliquis previously and tolerated this well. Anticipate lifelong anticoagulation given multiple DVTs. 2. Acute with possible chronic kidney disease Unclear baseline. Patient has had significant improvement in renal function over the course of the hospitalization. Patient has not been here previously. Patient has had some response to fluid resuscitation. We will continue to monitor renal function closely. BUN to creatinine ratio suggests an element of chronic kidney disease. 3. Possible NSTEMI versus supply demand mismatch Patient with hypoxia on presentation and decreased filtration with elevated creatinine. Will obtain an echocardiogram for evaluation. Likely not necessary to obtain a cardiology consult at this time. Patient is on a heparin drip. Patient does have multiple risk factors for coronary artery disease. 4. Hypotension Resolved. Clinical suspicion for cardiogenic shock secondary to RV strain. Multiple possible etiologies including cardiogenic from acute PE, septic shock, and dehydration. Patient has responded to fluid resuscitation. We will continue to monitor. 5. Tobacco abuse/alcohol abuse/chronic pain syndrome Complicates care, management, recovery and prognosis. Monitor for signs and symptoms of withdrawal. Okay to continue with baseline lidocaine patch, but caution with gabapentin given renal function. Subjective Subjective Patient did okay overnight. Patient subjectively feels improved compared to previous. Patient states he has had no bleeding complications such as epistaxis, hemoptysis, melena or hematochezia. Patient was on oxygen with sleeping, but was able to make it to room air yesterday. Objective Data Objective Data Vital Signs: Vital Signs Temp Pulse Resp BP Pulse Ox 36.4 C L 113 H 16 109/82 H 95 12/12/21 00:49 12/12/21 03:40 12/12/21 00:49 12/12/21 00:49 12/12/21 00:49 Oxygen Flow Rate (L/min) 1 Oxygen Delivery Method Nasal Cannula Weight: 93.5 kg Body Mass Index (BMI) 28.4 Intake & Output: Intake and Output for Last 24 Hours 12/10/21 12/11/21 12/12/21 23:59 23:59 23:59 Intake Total 3305 / 3305 4402.67 / 4522.67 1822.5 / 1822.5 Output Total 375 / 575 200 / 200 Balance 3305 / 3305 4027.67 / 3947.67 1622.5 / 1622.5 Lab / Micro Data Result Diagrams: 12/12/21 02:04 12/12/21 02:04 Labs: Laboratory Results - last 24 hr 12/11/21 10:35: APTT Cancelled 12/11/21 11:05: APTT 44.8 H 12/11/21 12:54: POC Glucose 157 H 12/11/21 17:38: POC Glucose 115 H 12/11/21 18:40: APTT 38.4 H 12/11/21 21:29: POC Glucose 143 H 12/12/21 02:04: APTT 59.1 H 12/12/21 02:04: WBC 13.3 H, RBC 3.93 L, Hgb 12.0 L, Hct 35.6 L, MCV 90.6, MCH 30.5, MCHC 33.7, RDW Std Deviation 49.4 H, RDW Coeff of Tone 14.8 H, Plt Count 127 L, MPV 11.7, Immature Gran % (Auto) 0.600, Neut % (Auto) 70.2 H, Lymph % (Auto) 21.8, [place] % (Auto) 7.1, Eos % (Auto) 0.1, Baso % (Auto) 0.2, Absolute Neuts (auto) 9.3 H, Absolute Lymphs (auto) 2.90, Nucleated RBC % 0 02/18/22 02:04: Sodium 137, Potassium 3.9, Chloride 112 H, Carbon Dioxide 18.0 L , Anion Gap 7, BUN 27 H, Creatinine 1.30, Estim Creat Clear Calc 63.17, Est GFR (MDRD) Af Amer 73, Est GFR (MDRD) Non-Af 60, BUN/Creatinine Ratio 20.8 H, Glucose 111 H, Calcium 8.0 L 12/12/21 06:50: POC Glucose 119 H Micro: Microbiology 12/11/21 04:40 Urine, Random Legionella Antigen - Final 12/11/21 04:40 Urine, Random Streptococcus pneumoniae Antigen (M - Final 12/10/21 19:05 Nasal Secretion SARS-CoV-2 Antigen (Rapid) - Final Radiography Diagnostic Testing: Radiology Impression Echocardiogram 12/10/21 19:28 Interpretation Summary The estimated ejection fraction is 55 %. Diastolic function is indeterminate. Severely dilated right ventricle. Moderately severe global right ventricular systolic dysfunction. Pulmonary artery systolic pressure is 60-65 mmHg. Ordering Physician: Nazanin Carmona Referring Physician: ANCELMO BEE Performed By: Ashlee Moralez, KAREN, RVT Venous Doppler Study 12/11/21 08:11 Interpretation Summary Pulsatile flow bilateral lower extremity deep venous system consistent with proximal venous hypertension or occlusion. Clinical correlation would be appropriate. No evidence for acute deep venous thrombosis right lower extremity Acute deep venous thrombosis left femoral, popliteal, tibioperoneal trunk, posterior tibial, peroneal, and soleus veins Patent and compressible bilateral great saphenous veins Ordering Physician: Dragan Moreno Performed By: Nehemias Jason RVJossue Rhythm Strip Rhythm Strip: Tachycardia Rate: 149 Ectopy: None Physical Exam Const alert, oriented x3 and no apparent distress Constitutional Narrative: No conversational dyspnea. Nasal cannula in place. General Appearance: cooperative and well developed HEENT normocephalic, head/scalp atraumatic and moist oral mucous membranes Eyes PERRL, EOMs intact bilaterally, conjunctivae normal and no scleral icterus Neck full ROM Chest Chest: abnormal inspection of the chest increased A-P diameter and symmetrical chest wall rise; Negative for crepitus Resp Auscultation: diminished lung sounds; Negative for rales, rhonchi or wheezes Cardio regular rate, regular rhythm, S1 normal heart sound, S2 normal heart sound, no murmurs, no rub and no gallops GI normal to inspection, nondistended, normoactive bowel sounds Extremity no clubbing, cyanosis or edema Skin no rashes or lesions noted Neuro oriented x3, CN's II-XII intact bilaterally and moves all extremities Psych cooperative and affect normal Appearance: well kempt Charges/Coding Visit Charges Inpatient E&M: 87381 Subs Hosp L2
[2021-12-12 08:35] LABS: Partial Thromboplast Time 44.6 Seconds (24.1-36.2)
[2021-12-12] MEDS: Heparin Injection (Vial) 5,000 UNIT/ML VIAL IV (08:47)
[2021-12-12] MEDS: Folic Acid 1 MG Tablet PO (08:55)
[2021-12-12] MEDS: Thiamine Hydrochloride 100 MG Tablet PO (08:55)
--- NOTE | 2021-12-12 10:23 | PN.HOSP_ITS ---
Subjective Subjective Still has shortness of breath with ambulation he does get significantly tachycardic however he is on room air at rest. Denies any chest pain Objective Data Objective Data Vital Signs: Vital Signs Temp Pulse Resp BP Pulse Ox 97.2 F L 118 H 18 113/87 H 93 12/12/21 08:44 12/12/21 08:44 12/12/21 08:44 12/12/21 08:44 12/12/21 08:44 Oxygen Flow Rate (L/min) 1 Oxygen Delivery Method Room Air Weight: 206 lb 2.115 oz Body Mass Index (BMI) 28.4 Intake & Output: Intake and Output for Last 24 Hours 12/11/21 12/12/21 12/13/21 03:59 03:59 03:59 Intake Total 3855 / 3855 5022.67 / 5022.67 899.25 / 899.25 Output Total 575 / 575 Balance 3855 / 3480 4447.67 / 4447.67 899.25 / 899.25 Lab / Micro Data Result Diagrams: 12/12/21 02:04 12/12/21 02:04 Labs: Laboratory Results - last 24 hr 12/11/21 10:35: APTT Cancelled 12/11/21 11:05: APTT 44.8 H 12/11/21 12:54: POC Glucose 157 H 12/11/21 17:38: POC Glucose 115 H 12/11/21 18:40: APTT 38.4 H 12/11/21 21:29: POC Glucose 143 H 12/12/21 02:04: APTT 59.1 H 12/12/21 02:04: WBC 13.3 H, RBC 3.93 L, Hgb 12.0 L, Hct 35.6 L, MCV 90.6, MCH 30.5, MCHC 33.7, RDW Std Deviation 49.4 H, RDW Coeff of Tone 14.8 H, Plt Count 127 L, MPV 11.7, Immature Gran % (Auto) 0.600, Neut % (Auto) 70.2 H, Lymph % (Auto) 21.8, [place] % (Auto) 7.1, Eos % (Auto) 0.1, Baso % (Auto) 0.2, Absolute Neuts (auto) 9.3 H, Absolute Lymphs (auto) 2.90, Nucleated RBC % 0 12/12/21 02:04: Sodium 137, Potassium 3.9, Chloride 112 H, Carbon Dioxide 18.0 L , Anion Gap 7, BUN 27 H, Creatinine 1.30, Estim Creat Clear Calc 63.17, Est GFR (MDRD) Af Amer 73, Est GFR (MDRD) Non-Af 60, BUN/Creatinine Ratio 20.8 H, Glucose 111 H, Calcium 8.0 L 12/12/21 06:50: POC Glucose 119 H 12/12/21 08:08: APTT 44.6 H Micro: Microbiology 12/11/21 04:40 Urine, Random Legionella Antigen - Final 12/11/21 04:40 Urine, Random Streptococcus pneumoniae Antigen (M - Final 12/10/21 19:05 Nasal Secretion SARS-CoV-2 Antigen (Rapid) - Final Radiography Diagnostic Testing: Radiology Impression Echocardiogram 12/10/21 19:28 Interpretation Summary The estimated ejection fraction is 55 %. Diastolic function is indeterminate. Severely dilated right ventricle. Moderately severe global right ventricular systolic dysfunction. Pulmonary artery systolic pressure is 60-65 mmHg. Ordering Physician: Nazanin Carmona Referring Physician: ANCELMO BEE Performed By: Ashlee Moralez, KAREN, RVT Venous Doppler Study 12/11/21 08:11 Interpretation Summary Pulsatile flow bilateral lower extremity deep venous system consistent with proximal venous hypertension or occlusion. Clinical correlation would be appropriate. No evidence for acute deep venous thrombosis right lower extremity Acute deep venous thrombosis left femoral, popliteal, tibioperoneal trunk, p osterior tibial, peroneal, and soleus veins Patent and compressible bilateral great saphenous veins Ordering Physician: Dragan Moreno Performed By: Nehemias Jason RVT Rhythm Strip Rhythm Strip: Tachycardia Rate: 149 Ectopy: None Physical Exam Narrative Const alert, oriented x3 and no apparent distress General Appearance: cooperative HEENT normocephalic and moist oral mucous membranes Eyes PERRL, EOMs intact bilaterally and conjunctivae normal Neck supple and no JVD Resp normal respiratory effort, no retractions and no use of accessory muscles Auscultation: diminished lung sounds; Negative for crackles, rales, rhonchi or wheezes Cardio regular rate, regular rhythm, S1 normal heart sound, S2 normal heart sound and no murmurs GI soft to palpation, non-tender and non-distended; Negative for hepatosplenomegaly Extremity no clubbing, cyanosis or edema Skin no rashes or lesions noted Neuro no focal motor deficits and no sensory deficits noted Psych affect normal Appearance: appropriate Assessment & Plan Assessment/Plan (1) Elevated troponin: (2) Acute kidney injury: (3) Lactic acidosis: (4) Suspected pulmonary embolism: (5) Pneumonia: PLAN: 1. Acute hypoxic respiratory failure secondary to suspected Acute PE versus left sided pneumonia/BRODERICK/acute non-STEMI/DVT ?Continue with oxygen as necessary ?CT of the chest not necessary secondary to a DVT found on Dopplers ?We will discontinue the heparin drip and transition to Eliquis ?Continue with IV fluids and continue to monitor creatinine ?Elevated troponin may potentially be a non-STEMI versus demand ischemia from either pneumonia or PE ?Echo with severely dilated right ventricle and moderately severe global right ventricular systolic dysfunction with a pulmonary artery systolic pressure of 60 to 65 mmHg consistent with right heart strain from a PE ?Continue with antibiotics ?History of nicotine abuse, can continue with nicotine patch ?Alcohol abuse, continue CIWA protocol DVT: Eliquis
--- NOTE | 2021-12-12 11:23 | CASEMGMT ---
Social Work SW met with pt and introduced self and role of SW. Pt laying in bed, alert and oriented and agreeable to discussion. SW addressed alcohol use. Pt states he drinks 2-3 beers daily, denies problem drinking and acknowledges need for cessation upon return home. Pt has not been to a program in the past for alcohol use. SW discussed program availability including [facility] and [facility]. Pt states that he does not feel SW needs to make an appointment for him at this time but pt requested information be sent home with him in the event he would need assistance with cessation. SW left pt with brochure from [facility], [facility] and a list of Alcohol treatment Agencies near [place]. Pt appreciative of information and denies any further SW needs at this time. ERNA Holguin
[2021-12-12 11:36] LABS: Bedside Glucose 118 mg/dL (70-110)
[2021-12-12] MEDS: APIXABAN 5 MG TABLET 10 MG PO ×2 (13:15→21:31)
[2021-12-12] MEDS: Gabapentin 600 MG Tablet PO ×2 (13:17→21:31)
--- NOTE | 2021-12-12 14:46 | NURSING ---
Patient states he wishes to wear 02 for comfort. He is aware that he does not need it. Ambulatory pulse ox completed at this time as well. See intervention.
--- NOTE | 2021-12-12 14:47 | NURSING ---
Patient states he is only able to walk to doorway and back to bed. He reports that he gets too short of breath to walk further.
[2021-12-12 17:01] LABS: Bedside Glucose 114 mg/dL (70-110)
[2021-12-12 22:55] LABS: Bedside Glucose 132 mg/dL (70-110)
[2021-12-13] VITALS (20 sets, daily range): BP systolic 101–169; BP diastolic 57–105; PULSE 107–178; RESP 15–20; TEMP 36.6–36.9; O2SAT 90–100
[2021-12-13] MEDS: 0.9% Normal Saline 1,000 ML 150 ML IV (01:57)
[2021-12-13] MEDS: Gabapentin 600 MG Tablet PO ×3 (06:24→20:01)
[2021-12-13 06:40] LABS: Absolute Lymphocyte Count 2.16 X10^3/uL (0.83-4.51); Absolute Neutrophil Count 6.8 X10^3/uL (2.0-7.7); Basophil# 0.03 X10^3/uL; Basophil% 0.3 % (0-1); Eosinophil# 0.02 X10^3/uL; Eosinophils% 0.2 % (0-5); Hematocrit 34.7 % (40-54); Lymphocyte # 2.16 X10^3/ul (0.83-4.51); Lymphocyte % 21.8 % (19-41); Mean Corp Hgb Conc 31.7 g/dL (32-36); Mean Corpuscular Hgb 28.9 pg (27.0-32.0); Mean Corpuscular Volume 91.1 fL (80-94); Mean Platelet Vol. 11.2 fl (6.2-12.0); Monocyte% 8.1 % (0-10); NRBC Flagged by Analyzer 0 % (0-5); Neutrophil # 6.84 X10^3/uL (2.7-7.7); Neutrophil % 68.9 % (47-70); Platelet Count 143 K/mm3 (150-450); RBC Distribution Width CV 15.4 % (11.6-14.6); RBC Distribution Width SD 51.1 fl (35.1-43.9); Red Blood Count 3.81 M/mm3 (4.6-6.2); White Blood Count 9.9 K/mm3 (4.4-11.0)
[2021-12-13 06:46] LABS: Bedside Glucose 100 mg/dL (70-110)
[2021-12-13 07:02] LABS: Anion Gap 5 (5-15); BUN 22 mg/dL (7-18); BUN/Creat Ratio 18.6 RATIO (10-20); Chloride 113 mmol/L (98-107); Creatinine, Serum 1.18 mg/dL (0.70-1.30); EST Glomerular Filtration Rate 67 mL/min (>60); Est Glom Filt Rate - Afr Amer 81 mL/min (>60); Glucose 99 mg/dL (74-106); Potassium 4.1 mmol/L (3.5-5.1); Sodium Level 139 mmol/L (136-145)
--- NOTE | 2021-12-13 08:27 | PN.CC_ITS ---
Assessment & Plan Assessment/Plan (1) Left upper lobe pneumonia: (2) Acute kidney injury: (3) Septic shock: PLAN: RECOMMENDATIONS: 1. Continue 10 a inhibitor indefinitely 2. Will need a repeat echocardiogram in 4 to 6 weeks to ensure resolution 3. Discharged on Combivent as needed would be appropriate 4. Likely okay to discharge off antibiotics from my perspective 5. Outpatient follow-up in 4 weeks with nurse practitioner for PFTs and other work-up. IMPRESSIONS: 1. Acute hypoxic respiratory insufficiency secondary to probable PE Unclear etiology at this time. Patient does have a history of PE in the past and this is definitely a possibility. However, patient is reporting a fever, leukocytosis and a productive cough with a left-sided infiltrate. Given lack of leukocytosis, improvement in clinical condition and lack of fever, likely okay to discharge without antibiotics. Lower extremity Dopplers are showing a DVT and echocardiogram shows severe right heart strain. Patient may have an element of right heart strain secondary to chronic hypoxia, but will need a work-up as an outpatient. Patient was transitioned over to a 10 a inhibitor. Patient was on Eliquis previously and tolerated this well. Antici khanna lifelong anticoagulation given multiple DVTs. 2. Acute with possible chronic kidney disease Resolved. Patient has had significant improvement in renal function over the course of the hospitalization. Patient has not been here previously. Patient has had some response to fluid resuscitation. We will continue to monitor renal function closely. BUN to creatinine ratio suggests an element of chronic kidney disease. 3. Possible NSTEMI versus supply demand mismatch Patient with hypoxia on presentation and decreased filtration with elevated creatinine. Will obtain an echocardiogram for evaluation. Likely not necessary to obtain a cardiology consult at this time. Patient is on a heparin drip. Patient does have multiple risk factors for coronary artery disease. 4. Hypotension Resolved. Clinical suspicion for cardiogenic shock secondary to RV strain. Multiple possible etiologies including cardiogenic from acute PE, septic shock, and dehydration. Patient has responded to fluid resuscitation. We will continue to monitor. 5. Tobacco abuse/alcohol abuse/chronic pain syndrome Complicates care, management, recovery and prognosis. Monitor for signs and symptoms of withdrawal. Okay to continue with baseline lidocaine patch, but caution with gabapentin given renal function. Subjective Subjective Patient did well overnight. No acute issues were reported. Patient did have a walking oximetry and tolerated room air, but estimated that he only walked about 20 feet. Patient states he slept well overnight and feels subjectively improved from a breathing standpoint this morning. Objective Data Objective Data Vital Signs: Vital Signs Temp Pulse Resp BP Pulse Ox 36.6 C 107 H 15 122/83 H 99 12/13/21 03:00 12/13/21 03:57 12/13/21 03:00 12/13/21 03:00 12/13/21 03:00 Oxygen Flow Rate (L/min) 1 Oxygen Delivery Method Nasal Cannula Weight: 95.2 kg Body Mass Index (BMI) 28.4 Intake & Output: Intake and Output for Last 24 Hours 12/11/21 12/12/21 12/13/21 23:59 23:59 23:59 Intake Total 4402.67 / 4522.67 3956.05 / 4256.05 350 / 350 Output Total 375 / 575 200 / 200 Balance 4027.67 / 3947.67 3756.05 / 4056.05 350 / 350 Lab / Micro Data Result Diagrams: 12/13/21 06:30 12/13/21 06:30 Labs: Laboratory Results - last 24 hr 12/12/21 08:08: APTT 44.6 H 12/12/21 11:23: POC Glucose 118 H 12/12/21 16:28: POC Glucose 114 H 12/12/21 22:48: POC Glucose 132 H 12/13/21 06:28: POC Glucose 100 12/13/21 06:30: WBC 9.9, RBC 3.81 L, Hgb 11.0 L, Hct 34.7 L, MCV 91.1, MCH 28.9, MCHC 31.7 L D, RDW Std Deviation 51.1 H, RDW Coeff of Tone 15.4 H, Plt Count 143 L, MPV 11.2, Immature Gran % (Auto) 0.700, Neut % (Auto) 68.9, Lymph % (Auto) 21.8, [place] % (Auto) 8.1, Eos % (Auto) 0.2, Baso % (Auto) 0.3, Absolute Neuts (auto) 6.8, Absolute Lymphs (auto) 2.16, Nucleated RBC % 0 12/13/21 06:30: Sodium 139, Potassium 4.1, Chloride 113 H, Carbon Dioxide 21.0, Anion Gap 5, BUN 22 H, Creatinine 1.18, Estim Creat Clear Calc 69.60, Est GFR (MDRD) Af Amer 81, Est GFR (MDRD) Non-Af 67, BUN/Creatinine Ratio 18.6, Glucose 99, Calcium 8.0 L Micro: Microbiology 12/11/21 04:40 Urine, Random Urine Culture - Final Culture exhibits no growth. 12/11/21 04:40 Urine, Random Legionella Antigen - Final 12/11/21 04:40 Urine, Random Streptococcus pneumoniae Antigen (M - Final 12/10/21 19:05 Nasal Secretion SARS-CoV-2 Antigen (Rapid) - Final Rhythm Strip Rhythm Strip: Tachycardia Rate: 149 Ectopy: None Physical Exam Const alert, oriented x3 and no apparent distress Constitutional Narrative: No conversational dyspnea. Nasal cannula in place. General Appearance: cooperative and well developed HEENT normocephalic, head/scalp atraumatic and moist oral mucous membranes Eyes PERRL, EOMs intact bilaterally, conjunctivae normal and no scleral icterus Neck full ROM Chest Chest: abnormal inspection of the chest increased A-P diameter and symmetrical chest wall rise; Negative for crepitus Resp Auscultation: diminished lung sounds; Negative for rales, rhonchi or wheezes Cardio regular rate, regular rhythm, S1 normal heart sound, S2 normal heart sound, no murmurs, no rub and no gallops GI normal to inspection, nondistended, normoactive bowel sounds Extremity no clubbing, cyanosis or edema Skin no rashes or lesions noted Neuro oriented x3, CN's II-XII intact bilaterally and moves all extremities Psych cooperative and affect normal Appearance: well kempt Charges/Coding Visit Charges Inpatient E&M: 40491 Subs Hosp L2
[2021-12-13] MEDS: Ipratropium/Albuterol Sulfate 3 ML AMPUL.NEB INHALATION (10:40)
[2021-12-13] MEDS: APIXABAN 5 MG TABLET 10 MG PO ×2 (10:44→19:59)
[2021-12-13] MEDS: Folic Acid 1 MG Tablet PO (10:44)
[2021-12-13] MEDS: Thiamine Hydrochloride 100 MG Tablet PO (10:45)
--- NOTE | 2021-12-13 10:49 | PCM.PN.HOSP ---
Subjective Subjective Feels well at baseline and at rest however whenever he tries to get up even though he does not require any oxygen he gets very short of breath and tachycardic Objective Data Objective Data Vital Signs: Vital Signs Temp Pulse Resp BP Pulse Ox 98.4 F 107 H 18 169/105 H 100 12/13/21 08:51 12/13/21 08:51 12/13/21 08:51 12/13/21 08:51 12/13/21 08:51 Oxygen Flow Rate (L/min) 1 Oxygen Delivery Method Room Air Weight: 209 lb 14.081 oz Body Mass Index (BMI) 28.4 Intake & Output: Intake and Output for Last 24 Hours 12/12/21 12/13/21 12/14/21 03:59 03:59 03:59 Intake Total 5022.67 / 5022.67 3136.05 / 3136.05 Output Total 575 / 575 Balance 4447.67 / 4447.67 3136.05 / 3136.05 Lab / Micro Data Result Diagrams: 12/13/21 06:30 12/13/21 06:30 Labs: Laboratory Results - last 24 hr 12/12/21 11:23: POC Glucose 118 H 12/12/21 16:28: POC Glucose 114 H 12/12/21 22:48: POC Glucose 132 H 12/13/21 06:28: POC Glucose 100 12/13/21 06:30: WBC 9.9, RBC 3.81 L, Hgb 11.0 L, Hct 34.7 L, MCV 91.1, MCH 28.9, MCHC 31.7 L D, RDW Std Deviation 51.1 H, RDW Coeff of Tone 15.4 H, Plt Count 143 L, MPV 11.2, Immature Gran % (Auto) 0.700, Neut % (Auto) 68.9, Lymph % (Auto) 21.8, [place] % (Auto) 8.1, Eos % (Auto) 0.2, Baso % (Auto) 0.3, Absolute Neuts (auto) 6.8, Absolute Lymphs (auto) 2.16, Nucleated RBC % 0 12/13/21 06:30: Sodium 139, Potassium 4.1, Chloride 113 H, Carbon Dioxide 21.0, Anion Gap 5, BUN 22 H, Creatinine 1.18, Estim Creat Clear Calc 69.60, Est GFR (MDRD) Af Amer 81, Est GFR (MDRD) Non-Af 67, BUN/Creatinine Ratio 18.6, Glucose 99, Calcium 8.0 L Micro: Microbiology 12/10/21 16:30 Blood Culture (Wb) - Anticubital Left Blood Culture - Preliminary No growth in 48 hours. 12/10/21 19:00 Blood Culture (Wb) - Anticubital Right Blood Culture - Preliminary No growth in 48 hours. 12/11/21 04:40 Urine, Random Urine Culture - Final Culture exhibits no growth. 12/11/21 04:40 Urine, Random Legionella Antigen - Final 12/11/21 04:40 Urine, Random Streptococcus pneumoniae Antigen (M - Final 12/10/21 19:05 Nasal Secretion SARS-CoV-2 Antigen (Rapid) - Final Rhythm Strip Rhythm Strip: Tachycardia Rate: 149 Ectopy: None Physical Exam Narrative Const alert, oriented x3 and no apparent distress General Appearance: cooperative HEENT normocephalic and moist oral mucous membranes Eyes PERRL, EOMs intact bilaterally and conjunctivae normal Neck supple and no JVD Resp normal respiratory effort, no retractions and no use of accessory muscles Auscultation: diminished lung sounds; Negative for crackles, rales, rhonchi or wheezes Cardio regular rate, regular rhythm, S1 normal heart sound, S2 normal heart sound and no murmurs GI soft to palpation, non-tender and non-distended; Negative for hepatosplenomegaly Extremity no clubbing, cyanosis or edema Skin no rashes or lesions noted Neuro no focal motor deficits and no sensory deficits noted Psych affect normal Appearance: appropriate Assessment & Plan Assessment/Plan (1) Elevated troponin: (2) Acute kidney injury: (3) Lactic acidosis: (4) Suspected pulmonary embolism: (5) Pneumonia: PLAN: 1. Acute hypoxic respiratory failure secondary to suspected Acute PE versus left sided pneumonia/BRODERICK/acute non-STEMI/DVT ?Continue with oxygen as necessary ?CT of the chest not necessary secondary to a DVT found on Dopplers ?We will discontinue the heparin drip and transition to Eliquis ?His BRODERICK has resolved, will discontinue IV fluids ?Elevated troponin is due to right heart strain from PE ?Echo with severely dilated right ventricle and moderately severe global right ventricular systolic dysfunction with a pulmonary artery systolic pressure of 60 to 65 mmHg consistent with right heart strain from a PE ?Continue with antibiotics ?History of nicotine abuse, can continue with nicotine patch ?Alcohol abuse, continue CIWA protocol DVT: Eliquis Charges/Coding Visit Charges Inpatient E&M: 39566 Subs Hosp L2
[2021-12-13 13:20] LABS: Bedside Glucose 98 mg/dL (70-110)
--- NOTE | 2021-12-13 14:21 | EKG12_ITS ---
Test Reason : ARHYTHMIA Blood Pressure : / mmHG Vent. Rate : 137 BPM Atrial Rate : 274 BPM P-R Int : 000 ms QRS Dur : 102 ms QT Int : 318 ms P-R-T Axes : 000 095 025 degrees QTc Int : 480 ms Atrial flutter Low voltage QRS Nonspecific ST and T wave abnormality Abnormal ECG Confirmed by RICHY CHUNG, SEJAL ([id number]), restaurant expeditor TAJ MERAZ ([id number]) on 12/17/2021 12:56:46 PM Referred By: PIO Confirmed By:SEJAL LOCKHART MD
[2021-12-13] MEDS: Metoprolol Tartrate 5 MG/5 ML Vial IV (15:23)
[2021-12-13] MEDS: 0.9% Saline Lock 10 ML Syringe IV ×3 (15:24→23:06)
[2021-12-13 16:40] LABS: Bedside Glucose 120 mg/dL (70-110)
[2021-12-13] MEDS: LORazepam 2 MG/ML Syringe 0.5 MG IV (19:56)
[2021-12-13] MEDS: Lidocaine 5% Patch TOPICAL (19:59)
[2021-12-13 20:40] LABS: Magnesium 2.1 mg/dL (1.6-2.6); Thyroid Stim Hormone (TSH) 0.97 uIU/mL (0.358-3.74)
--- NOTE | 2021-12-13 22:09 | EKG12_ITS ---
Test Reason : RHYTHEM CHANGE Blood Pressure : / mmHG Vent. Rate : 073 BPM Atrial Rate : 073 BPM P-R Int : 142 ms QRS Dur : 088 ms QT Int : 426 ms P-R-T Axes : 073 088 -55 degrees QTc Int : 469 ms Normal sinus rhythm Low voltage QRS ST & T wave abnormality, consider anterolateral ischemia Prolonged QT Abnormal ECG Confirmed by RICHY CHUNG, SEJAL ([id number]), video tape editor TAJ MERAZ ([id number]) on 12/17/2021 1:06:45 PM Referred By: SPENCER Confirmed By:SEJAL LOCKHART MD
[2021-12-14] VITALS (34 sets, daily range): BP systolic 93–125; BP diastolic 67–104; PULSE 125–136; RESP 18–30; TEMP 36.8–37.2; O2SAT 89–99
--- NOTE | 2021-12-14 02:32 | PCM.PN.BLA ---
Progress Note Patient with persistent tachycardia throughout the night; EKG shows a flutter with RVR. BP relatively low at 107/57 - 95/63. Received amiodarone bolus and drip; patient already on Eliquis Cardiology consulted
[2021-12-14 06:42] LABS: Absolute Lymphocyte Count 2.89 X10^3/uL (0.83-4.51); Absolute Neutrophil Count 7.7 X10^3/uL (2.0-7.7); Basophil# 0.05 X10^3/uL; Basophil% 0.4 % (0-1); Eosinophil# 0.03 X10^3/uL; Eosinophils% 0.3 % (0-5); Hematocrit 34.9 % (40-54); Hemoglobin 11.5 g/dL (13.0-16.5); Lymphocyte # 2.89 X10^3/ul (0.83-4.51); Mean Corpuscular Hgb 29.9 pg (27.0-32.0); Mean Corpuscular Volume 90.9 fL (80-94); Mean Platelet Vol. 12.2 fl (6.2-12.0); Monocyte# 0.84 X10^3/uL; Monocyte% 7.3 % (0-10); NRBC Flagged by Analyzer 0.2 % (0-5); Neutrophil # 7.66 X10^3/uL (2.7-7.7); Neutrophil % 66.1 % (47-70); Platelet Count 193 K/mm3 (150-450); RBC Distribution Width CV 15.7 % (11.6-14.6); Red Blood Count 3.84 M/mm3 (4.6-6.2); White Blood Count 11.6 K/mm3 (4.4-11.0)
[2021-12-14 07:17] LABS: ALB/GLOB Ratio 0.5 RATIO (0.9-2.4); AST(SGOT) 405 U/L (15-37); Alanine Aminotransfer ALT/SGPT 329 U/L (16-61); Albumin, Serum 2.1 g/dL (3.2-5.0); Alkaline Phosphatase 289 U/L (45-117); Anion Gap 9 (5-15); BUN 25 mg/dL (7-18); BUN/Creat Ratio 20.7 RATIO (10-20); Calcium,Total 8.3 mg/dL (8.5-10.1); Chloride 111 mmol/L (98-107); Creatinine, Serum 1.21 mg/dL (0.70-1.30); EST Glomerular Filtration Rate 65 mL/min (>60); Est Glom Filt Rate - Afr Amer 79 mL/min (>60); Estimated Creatinine Clearance 67.87 ml/min; Globulin 4.1 g/dL (2.2-4.2); Glucose 99 mg/dL (74-106); Potassium 4.1 mmol/L (3.5-5.1); Protein, Total 6.2 g/dL (6.4-8.2); Sodium Level 138 mmol/L (136-145)
--- NOTE | 2021-12-14 07:33 | PN.CC_ITS ---
Assessment & Plan Assessment/Plan (1) Left upper lobe pneumonia: (2) Acute kidney injury: (3) Septic shock: PLAN: RECOMMENDATIONS: 1. Continue 10 a inhibitor indefinitely 2. Will need a repeat echocardiogram in 4 to 6 weeks to ensure resolution 3. Okay to hold bronchodilators given A. fib with RVR 4. Could consider cardiology consult versus diuresis 5. Outpatient follow-up in 4 weeks with nurse practitioner for PFTs and other work-up. IMPRESSIONS: 1. Acute hypoxic respiratory insufficiency secondary to probable PE Unclear etiology at this time. Patient does have a history of PE in the past and this is definitely a possibility. Patient was reporting a fever, initial leukocytosis and a productive cough with a left-sided infiltrate, pneumonia was a consideration. However, given lack of leukocytosis, improvement in clinical condition and lack of fever, likely okay to discontinue antibiotics. Lower extremity Dopplers are showing a DVT and echocardiogram shows severe right heart strain. Patient may have an element of right heart strain secondary to chronic hypoxia, but will need a work-up as an outpatient. Patient was transitioned over to a 10 a inhibitor. Patient was on Eliquis previously and tolerated this well. Anticipate lifelong anticoagulation given multiple DVTs. 2. Acute with possible chronic kidney disease Resolved. Patient has had significant improvement in renal function over the course of the hospitalization. Patient has not been here previously. Patie nt has had some response to fluid resuscitation. We will continue to monitor renal function closely. BUN to creatinine ratio suggests an element of chronic kidney disease. 3. Possible NSTEMI versus supply demand mismatch Patient with hypoxia on presentation and decreased filtration with elevated creatinine. Will obtain an echocardiogram for evaluation. Likely not necessary to obtain a cardiology consult at this time. Patient is on a heparin drip. Patient does have multiple risk factors for coronary artery disease. 4. Hypotension Resolved. Clinical suspicion for cardiogenic shock secondary to RV strain. Multiple possible etiologies including cardiogenic from acute PE, septic shock, and dehydration. Patient has responded to fluid resuscitation. We will continue to monitor. 5. Tobacco abuse/alcohol abuse/chronic pain syndrome Complicates care, management, recovery and prognosis. Monitor for signs and symptoms of withdrawal. Okay to continue with baseline lidocaine patch, but caution with gabapentin given renal function. 6. New onset A. fib with RVR Patient with significant RV dilation on echocardiogram. Patient may improve heart rate paradoxically with diuresis given decreased stretch on right atrium. Patient is on amiodarone. Could consider a cardiology consultation. Defer to hospitalist. HARJIT with cardioversion would be another possible approach Subjective Subjective Patient did okay from respiratory standpoint yesterday. However, patient developed A. fib with RVR over the last 24 hours with persistent heart rates in the 130s despite amiodarone drip and beta-blockers. Patient was resting comfortably and denied any chest pain upon waking. No palpitations were reported. Patient does report dyspnea on exertion. Objective Data Objective Data Vital Signs: Vital Signs Temp Pulse Resp BP Pulse Ox 36.9 C 131 H 20 H 113/87 H 97 12/14/21 04:00 12/14/21 07:17 12/14/21 07:00 12/14/21 07:00 12/14/21 07:00 Oxygen Flow Rate (L/min) [ 0 AMBULATING on Room Air] Oxygen Flow Rate (L/min) [At 0 REST on Room Air] Oxygen Flow Rate (L/min) 2 Oxygen Delivery Method Nasal Cannula Weight: 96.7 kg Body Mass Index (BMI) 28.4 Intake & Output: Intake and Output for Last 24 Hours 12/12/21 12/13/21 12/14/21 23:59 23:59 23:59 Intake Total 3956.05 / 4256.05 212. / 212.01 Output Total 200 / 200 Balance 3756.05 / 4056.05 212. / 212.01 Lab / Micro Data Result Diagrams: 12/14/21 04:47 12/14/21 04:47 Labs: Laboratory Results - last 24 hr 12/13/21 06:30: Magnesium 2.1, TSH 0.97 12/13/21 13:15: POC Glucose 98 12/13/21 16:18: POC Glucose 120 H 12/14/21 04:47: WBC 11.6 H, RBC 3.84 L, Hgb 11.5 L, Hct 34.9 L, MCV 90.9, MCH 29.9, MCHC 33.0, RDW Std Deviation 52.0 H, RDW Coeff of Tone 15.7 H, Plt Count 193, MPV 12.2 H, Immature Gran % (Auto) 0.900, Neut % (Auto) 66.1, Lymph % (Auto) 25.0, [place] % (Auto) 7.3, Eos % (Auto) 0.3, Baso % (Auto) 0.4, Absolute Neuts (auto) 7.7, Absolute Lymphs (auto) 2.89, Nucleated RBC % 0.2 12/14/21 04:47: Sodium 138, Potassium 4.1, Chloride 111 H, Carbon Dioxide 18.0 L , Anion Gap 9, BUN 25 H, Creatinine 1.21, Estim Creat Clear Calc 67.87, Est GFR (MDRD) Af Amer 79, Est GFR (MDRD) Non-Af 65, BUN/Creatinine Ratio 20.7 H, Glucose 99, Calcium 8.3 L, Total Bilirubin 0.50, AST 405 H, ALT 329 H, Alkaline Phosphatase 289 H, Total Protein 6.2 L, Albumin 2.1 L, Globulin 4.1, Albumin/Globulin Ratio 0.5 L Micro: Microbiology 12/10/21 16:30 Blood Culture (Wb) - Anticubital Left Blood Culture - Preliminary No growth in 48 hours. 12/10/21 19:00 Blood Culture (Wb) - Anticubital Right Blood Culture - Preliminary No growth in 48 hours. 12/11/21 04:40 Urine, Random Urine Culture - Final Culture exhibits no growth. 12/11/21 04:40 Urine, Random Legionella Antigen - Final 12/11/21 04:40 Urine, Random Streptococcus pneumoniae Antigen (M - Final 12/10/21 19:05 Nasal Secretion SARS-CoV-2 Antigen (Rapid) - Final Rhythm Strip Rhythm Strip: Tachycardia Rate: 149 Ectopy: None Physical Exam Const alert, oriented x3 and no apparent distress Constitutional Narrative: No conversational dyspnea. Nasal cannula in place. General Appearance: cooperative and well developed HEENT normocephalic, head/scalp atraumatic and moist oral mucous membranes Eyes PERRL, EOMs intact bilaterally, conjunctivae normal and no scleral icterus Neck full ROM Chest Chest: abnormal inspection of the chest increased A-P diameter and symmetrical chest wall rise; Negative for crepitus Resp Auscultation: diminished lung sounds; Negative for rales, rhonchi or wheezes Cardio regular rate, regular rhythm, S1 normal heart sound, S2 normal heart sound, no murmurs, no rub and no gallops GI normal to inspection, nondistended, normoactive bowel sounds Extremity no clubbing, cyanosis or edema Skin no rashes or lesions noted Neuro oriented x3, CN's II-XII intact bilaterally and moves all extremities Psych cooperative and affect normal Appearance: well kempt Charges/Coding Visit Charges Inpatient E&M: 88821 Subs Hosp L2
[2021-12-14] MEDS: Folic Acid 1 MG Tablet PO (08:17)
[2021-12-14] MEDS: Thiamine Hydrochloride 100 MG Tablet PO (08:17)
[2021-12-14] MEDS: APIXABAN 5 MG TABLET 10 MG PO ×2 (08:18→20:55)
--- NOTE | 2021-12-14 13:34 | PCM.PN.HOSP ---
Subjective Subjective Doing well, no chest pain or shortness of breath at rest however any type of activity causes him to have difficulty breathing. Objective Data Objective Data Vital Signs: Vital Signs Temp Pulse Resp BP Pulse Ox 98.2 F 131 H 25 H 123/104 H 96 12/14/21 08:00 12/14/21 13:00 12/14/21 13:00 12/14/21 13:00 12/14/21 13:00 Oxygen Flow Rate (L/min) [ 0 AMBULATING on Room Air] Oxygen Flow Rate (L/min) [At 0 REST on Room Air] Oxygen Flow Rate (L/min) 2 Oxygen Delivery Method Nasal Cannula Weight: 213 lb 2.992 oz Body Mass Index (BMI) 28.4 Intake & Output: Intake and Output for Last 24 Hours 12/13/21 12/14/21 12/15/21 03:59 03:59 03:59 Intake Total 3136.05 / 3136.05 1773.22 / 1773.22 803.98 / 803.98 Balance 3136.05 / 3136.05 1773.22 / 1773.22 803.98 / 803.98 Lab / Micro Data Result Diagrams: 12/14/21 04:47 12/14/21 04:47 Labs: Laboratory Results - last 24 hr 12/13/21 06:30: Magnesium 2.1, TSH 0.97 12/13/21 16:18: POC Glucose 120 H 12/14/21 04:47: WBC 11.6 H, RBC 3.84 L, Hgb 11.5 L, Hct 34.9 L, MCV 90.9, MCH 29.9, MCHC 33.0, RDW Std Deviation 52.0 H, RDW Coeff of Tone 15.7 H, Plt Count 193, MPV 12.2 H, Immature Gran % (Auto) 0.900, Neut % (Auto) 66.1, Lymph % (Auto) 25.0, [place] % (Auto) 7.3, Eos % (Auto) 0.3, Baso % (Auto) 0.4, Absolute Neuts (auto) 7.7, Absolute Lymphs (auto) 2.89, Nucleated RBC % 0.2 12/14/21 04:47: Sodium 138, Potassium 4.1, Chloride 111 H, Carbon Dioxide 18.0 L, Anion Gap 9, BUN 25 H, Creatinine 1.21, Estim Creat Clear Calc 67.87, Est GFR (MDRD) Af Amer 79, Est GFR (MDRD) Non-Af 65, BUN/Creatinine Ratio 20.7 H, Glucose 99, Calcium 8.3 L, Total Bilirubin 0.50, AST 405 H, ALT 329 H, Alkaline Phosphatase 289 H, Total Protein 6.2 L, Albumin 2.1 L, Globulin 4.1, Albumin/Globulin Ratio 0.5 L Micro: Microbiology 12/10/21 16:30 Blood Culture (Wb) - Anticubital Left Blood Culture - Preliminary No growth in 48 hours. 12/10/21 19:00 Blood Culture (Wb) - Anticubital Right Blood Culture - Preliminary No growth in 48 hours. 12/11/21 04:40 Urine, Random Urine Culture - Final Culture exhibits no growth. 12/11/21 04:40 Urine, Random Legionella Antigen - Final 12/11/21 04:40 Urine, Random Streptococcus pneumoniae Antigen (M - Final 12/10/21 19:05 Nasal Secretion SARS-CoV-2 Antigen (Rapid) - Final Rhythm Strip Rhythm Strip: Tachycardia Rate: 149 Ectopy: None Physical Exam Narrative Const alert, oriented x3 and no apparent distress General Appearance: cooperative HEENT normocephalic and moist oral mucous membranes Eyes PERRL, EOMs intact bilaterally and conjunctivae normal Neck supple and no JVD Resp normal respiratory effort, no retractions and no use of accessory muscles Auscultation: diminished lung sounds; Negative for crackles, rales, rhonchi or wheezes Cardio Tachycardic, regular rhythm, S1 normal heart sound, S2 normal heart sound and no murmurs GI soft to palpation, non-tender and non-distended; Negative for hepatosplenomegaly Extremity no clubbing, cyanosis or edema Skin no rashes or lesions noted Neuro no focal motor deficits and no sensory deficits noted Psych affect normal Appearance: appropriate HEENT normocephalic and moist oral mucous membranes Eyes PERRL, EOMs intact bilaterally and conjunctivae normal Neck supple and no JVD Resp normal respiratory effort, no retractions and no use of accessory muscles Auscultation: diminished lung sounds; Negative for crackles, rales, rhonchi or wheezes Cardio regular rate, regular rhythm, S1 normal heart sound, S2 normal heart sound and no murmurs GI soft to palpation, non-tender and non-distended; Negative for hepatosplenomegaly Extremity no clubbing, cyanosis or edema Skin no rashes or lesions noted Neuro no focal motor deficits and no sensory deficits noted Psych affect normal Appearance: appropriate Assessment & Plan Assessment/Plan (1) Elevated troponin: (2) Acute kidney injury: (3) Lactic acidosis: (4) Suspected pulmonary embolism: (5) Pneumonia: PLAN: 1. Acute hypoxic respiratory failure secondary to suspected Acute PE versus left sided pneumonia/BRODERICK/acute non-STEMI/DVT ?Continue with oxygen as necessary ?CT of the chest not necessary secondary to a DVT found on Dopplers ?Continue with Eliquis ?His BRODERICK has resolved since ?Elevated troponin is due to right heart strain from PE ?Echo with severely dilated right ventricle and moderately severe global right ventricular systolic dysfunction with a pulmonary artery systolic pressure of 60 to 65 mmHg consistent with right heart strain from a PE ?Continue with antibiotics ?History of nicotine abuse, can continue with nicotine patch ?Alcohol abuse, continue CIWA protocol ?Yesterday became severely tachycardic, it does appear to be in A. fib/a flutter type of rhythm therefore he was given a dose of Lopressor however the symptoms auspice pressure with systolics in the 90s so overnight he was transitioned to amiodarone. Cardiology consult is pending DVT: Rickie Charges/Coding Visit Charges Inpatient E&M: 86376 Subs Hosp L2
--- NOTE | 2021-12-14 14:57 | PCM.CONS.C ---
Assessment & Plan Assessment/Plan (1) Atrial fibrillation: PLAN: Continue amio drip for 24 hours. Add low-dose Cardizem as patient is still tachycardic. Patient is going to be on anticoagulation secondary to his DVT and possible PE as well (2) Suspected pulmonary embolism: PLAN: Patient has severely dilated RV and RV dysfunction. At this point he does not have significant hypoxia or hypotension. However because of the severe RV dilatation and RV dysfunction it will be reasonable to get an opinion from a tertiary center or consider transfer to see if he would be a candidate for embolectomy. HPI Consult Data Date of Consult: 12/14/21 HPI Narrative HPI Narrative: LESA SWAN, is a 61 M who presented with acute hypoxic respiratory failure that appears to be secondary to PE. Patient was found to have left-sided DVT. His RV is severely dilated with severe RV dysfunction. He does not have significant symptoms at rest but gets short of breath with minimal exertion. He is on room air and his blood pressure is stable without pressors. Cardiology consult was requested as he went into A. fib with RVR. Amiodarone has been initiated. His blood pressure dropped with Lopressor. PFSH Medical History Alcohol abuse Anxiety Hearing loss, left Pulmonary embolism Smoker Home Medications gabapentin 600 mg PO TID 12/10/21 [History Last Taken 12/09/21] lidocaine 1 - 3 patch TRANSDERMAL Q12H 12/10/21 [History Last Taken 12/09/21] lorazepam 0.25 mg PO DAILY PRN 12/10/21 [History Last Taken Unknown] Allergy/AdvReac Type Severity Reaction Status Date / Time No Known Allergies Allergy Verified 12/10/21 16:22 Family History Mother Cancer ovarian Social History household members: none housing: house current occupational status: employed Smoking Status: Heavy Smoker (>10/day) alcohol intake: current substance use type: does not use Physical Exam Const alert and oriented x3 Orientation / Consciousness: awake HEENT normocephalic Eyes no scleral icterus Neck supple Resp normal respiratory effort Cardio regular rate Cardio Narrative: Tachycardic Skin no rashes or lesions noted Neuro oriented x3 Psych mental status grossly normal Risk Stratification Risk Stratification Applicable: No Charges/Coding Visit Charges Inpatient E&M: 23055 Init Hosp L2 Objective Data Vital Signs: Vital Signs Temp Pulse Resp BP Pulse Ox 98.2 F 131 H 25 H 123/104 H 96 12/14/21 08:00 12/14/21 13:00 12/14/21 13:00 12/14/21 13:00 12/14/21 13:00 Oxygen Flow Rate (L/min) [ 0 AMBULATING on Room Air] Oxygen Flow Rate (L/min) [At 0 REST on Room Air] Oxygen Flow Rate (L/min) 2 Oxygen Delivery Method Nasal Cannula Weight: 213 lb 2.992 oz Body Mass Index (BMI) 28.4 Intake & Output: Intake and Output for Last 24 Hours 12/12/21 12/13/21 12/14/21 23:59 23:59 23:59 Intake Total 3956.05 / 4256.05 912.21 / 912.21 Output Total 200 / 200 Balance 3756.05 / 4056.05 912. / 912.21 Lab / Micro Data Result Diagrams: 12/14/21 04:47 12/14/21 04:47 Labs: Laboratory Results - last 24 hr 12/13/21 06:30: Magnesium 2.1, TSH 0.97 12/13/21 16:18: POC Glucose 120 H 12/14/21 04:47: WBC 11.6 H, RBC 3.84 L, Hgb 11.5 L, Hct 34.9 L, MCV 90.9, MCH 29.9, MCHC 33.0, RDW Std Deviation 52.0 H, RDW Coeff of Tone 15.7 H, Plt Count 193, MPV 12.2 H, Immature Gran % (Auto) 0.900, Neut % (Auto) 66.1, Lymph % (Auto) 25.0, [place] % (Auto) 7.3, Eos % (Auto) 0.3, Baso % (Auto) 0.4, Absolute Neuts (auto) 7.7, Absolute Lymphs (auto) 2.89, Nucleated RBC % 0.2 12/14/21 04:47: Sodium 138, Potassium 4.1, Chloride 111 H, Carbon Dioxide 18.0 L, Anion Gap 9, BUN 25 H, Creatinine 1.21, Estim Creat Clear Calc 67.87, Est GFR (MDRD) Af Amer 79, Est GFR (MDRD) Non-Af 65, BUN/Creatinine Ratio 20.7 H, Glucose 99, Calcium 8.3 L, Total Bilirubin 0.50, AST 405 H, ALT 329 H, Alkaline Phosphatase 289 H, Total Protein 6.2 L, Albumin 2.1 L, Globulin 4.1, Albumin/Globulin Ratio 0.5 L Micro: Microbiology 12/10/21 16:30 Blood Culture (Wb) - Anticubital Left Blood Culture - Preliminary No growth in 48 hours. 12/10/21 19:00 Blood Culture (Wb) - Anticubital Right Blood Culture - Preliminary No growth in 48 hours. Rhythm Strip Rhythm Strip: Tachycardia Rate: 149 Ectopy: None Cardiology Labs/Tests 12/13/21 06:30: Magnesium 2.1 12/14/21 04:47: WBC 11.6 H, RBC 3.84 L, Hgb 11.5 L, Hct 34.9 L, MCV 90.9, MCH 29.9, MCHC 33.0, Plt Count 193, MPV 12.2 H, Immature Gran % (Auto) 0.900, Neut % (Auto) 66.1, Lymph % (Auto) 25.0, [place] % (Auto) 7.3, Eos % (Auto) 0.3, Baso % (Auto) 0.4, Absolute Neuts (auto) 7.7, Nucleated RBC % 0.2 12/14/21 04:47: Sodium 138, Potassium 4.1, Chloride 111 H, Carbon Dioxide 18.0 L, Anion Gap 9, BUN 25 H, Creatinine 1.21, Est GFR (MDRD) Af Amer 79, Est GFR (MDRD) Non-Af 65, BUN/Creatinine Ratio 20.7 H, Glucose 99, Calcium 8.3 L, Total Bilirubin 0.50 Rhythm: EKG: ECHO: Stress Test: Cardiac Cath: PCI: CT Surgery: Holter monitor: EPS: PPM: CXR: Chest CT Scan:
[2021-12-14] MEDS: TITRATION PARAMETER CHANGE 1 EACH IV (17:05)
[2021-12-14] MEDS: Acetaminophen 325 MG Tablet 650 MG PO (20:52)
[2021-12-14] MEDS: LORazepam 0.5 MG Tablet 0.25 MG PO (20:53)
[2021-12-14] MEDS: Lidocaine 5% Patch TOPICAL (20:54)
[2021-12-15] VITALS (27 sets, daily range): BP systolic 92–133; BP diastolic 59–103; PULSE 68–131; RESP 16–27; TEMP 36.5–37.1; O2SAT 90–98
--- NOTE | 2021-12-15 06:44 | EKG12_ITS ---
Test Reason : SVT Blood Pressure : / mmHG Vent. Rate : 171 BPM Atrial Rate : 278 BPM P-R Int : 000 ms QRS Dur : 084 ms QT Int : 278 ms P-R-T Axes : 000 068 -77 degrees QTc Int : 468 ms Atrial flutter with variable A-V block Low voltage QRS Nonspecific ST and T wave abnormality Abnormal ECG Confirmed by RICHY CHUNG, SEJAL ([id number]), editorial writer TAJ MERAZ ([id number]) on 12/17/2021 1:07:36 PM Referred By: BRITTANY Confirmed By:SEJAL LOCKHART MD
[2021-12-15 06:50] LABS: Basophil# 0.04 X10^3/uL; Basophil% 0.4 % (0-1); Eosinophil# 0.06 X10^3/uL; Eosinophils% 0.5 % (0-5); Hematocrit 36.4 % (40-54); Hemoglobin 11.6 g/dL (13.0-16.5); Lymphocyte % 20.6 % (19-41); Mean Corp Hgb Conc 31.9 g/dL (32-36); Mean Corpuscular Hgb 29.1 pg (27.0-32.0); Mean Corpuscular Volume 91.5 fL (80-94); Mean Platelet Vol. 11.3 fl (6.2-12.0); Monocyte# 0.66 X10^3/uL; Monocyte% 5.9 % (0-10); NRBC Flagged by Analyzer 0 % (0-5); Neutrophil # 7.97 X10^3/uL (2.7-7.7); Neutrophil % 71.3 % (47-70); Platelet Count 212 K/mm3 (150-450); RBC Distribution Width CV 15.5 % (11.6-14.6); RBC Distribution Width SD 51.8 fl (35.1-43.9); Red Blood Count 3.98 M/mm3 (4.6-6.2); White Blood Count 11.2 K/mm3 (4.4-11.0)
[2021-12-15 07:15] LABS: Anion Gap 7 (5-15); BUN 22 mg/dL (7-18); BUN/Creat Ratio 18.6 RATIO (10-20); Calcium,Total 8.1 mg/dL (8.5-10.1); Chloride 113 mmol/L (98-107); Creatinine, Serum 1.18 mg/dL (0.70-1.30); EST Glomerular Filtration Rate 67 mL/min (>60); Est Glom Filt Rate - Afr Amer 81 mL/min (>60); Glucose 115 mg/dL (74-106); Potassium 3.9 mmol/L (3.5-5.1); Sodium Level 139 mmol/L (136-145)
[2021-12-15] MEDS: Thiamine Hydrochloride 100 MG Tablet PO (07:50)
[2021-12-15] MEDS: Folic Acid 1 MG Tablet PO (07:50)
[2021-12-15] MEDS: APIXABAN 5 MG TABLET 10 MG PO ×2 (09:40→21:27)
--- NOTE | 2021-12-15 11:18 | PN.CC_ITS ---
Assessment & Plan Assessment/Plan (1) Left upper lobe pneumonia: (2) Acute kidney injury: (3) Septic shock: PLAN: RECOMMENDATIONS: 1. Continue Eliquis as ordered. 2. Perform walking oximetry study prior to consideration for discharge home. 3. Outpatient pulmonary follow-up in 2 weeks. 4. Repeat echocardiogram in 3 months. 5. Rate/rhythm control strategy per cardiology. IMPRESSIONS: 1. Lower extremity DVT with associated hypoxemia Most likely secondary to venous thromboembolic disease with associated RV dysfunction. My suspicion is for the presence of submassive pulmonary embolism in the setting of biochemical evidence of right heart strain. The patient remains hemodynamically stable. He is currently maintaining appropriate oxygen saturations on room air. He has been appropriately anticoagulated on Eliquis. The patient does have a history of prior lower extremity DVT. Therefore, he will require lifelong anticoagulation. I would also recommend that a repeat echocardiogram be completed in 3 months. Perform walking oximetry study prior to consideration for discharge home. 2. New onset atrial fibrillation with RVR The patient appears to be back to normal sinus rhythm after being medically managed with Cardizem and amiodarone. Cardiology is currently following to assist with medical management. 3. Tobacco abuse/alcohol abuse/chronic pain syndrome Complicates care, management, recovery and prognosis. Continue supportive measures as noted above. This note was generated with [employer] dictation software. It may contain incorrect words, spelling, and punctuation that were not noted in checking the note before signing. Subjective Subjective The patient was seen and examined at the bedside this morning. Events from the last 24 hours have been reviewed. The patient is currently afebrile, hemodynamically stable and maintaining appropriate oxygen saturations on room air. The patient is currently documented to be overall net +15.4 L for the hospitalization. The patient remains on Cardizem, amiodarone and Eliquis. Objective Data Objective Data The patient's most recent lab work, culture data and imaging studies have all been personally reviewed. Lower extremity Doppler revealed DVT in the left lower extremity. Surface echocardiogram demonstrated a severely dilated RV with moderately severe global RV systolic dysfunction and a pulmonary artery systolic pressure estimated to be 60 to 65 mmHg. Vital Signs: Vital Signs Temp Pulse Resp BP Pulse Ox 97.7 F L 80 19 H 122/89 H 91 12/15/21 08:00 12/15/21 11:00 12/15/21 11:00 12/15/21 11:00 12/15/21 11:00 Oxygen Flow Rate (L/min) [ 0 AMBULATING on Room Air] Oxygen Flow Rate (L/min) [At 0 REST on Room Air] Oxygen Flow Rate (L/min) 2 Oxygen Delivery Method Room Air Weight: 97.9 kg Body Mass Index (BMI) 28.4 Intake & Output: Intake and Output for Last 24 Hours 12/13/21 12/14/21 12/15/21 23:59 23:59 23:59 Intake Total 417.71 / 417.71 Balance 19004.16. 417.71 / 417.71 Lab / Micro Data Attestation: I reviewed the patient's lab results. Result Diagrams: 12/15/21 06:28 12/15/21 06:28 Labs: Laboratory Results - last 24 hr 12/15/21 06:28: WBC 11.2 H, RBC 3.98 L, Hgb 11.6 L, Hct 36.4 L, MCV 91.5, MCH 29.1, MCHC 31.9 L, RDW Std Deviation 51.8 H, RDW Coeff of Tone 15.5 H, Plt Count 212, MPV 11.3, Immature Gran % (Auto) 1.300 H, Neut % (Auto) 71.3 H, Lymph % (Auto) 20.6, [place] % (Auto) 5.9, Eos % (Auto) 0.5, Baso % (Auto) 0.4, Absolute Neuts (auto) 8.0 H, Absolute Lymphs (auto) 2.30, Nucleated RBC % 0 12/15/21 06:28: Sodium 139, Potassium 3.9, Chloride 113 H, Carbon Dioxide 19.0 L , Anion Gap 7, BUN 22 H, Creatinine 1.18, Estim Creat Clear Calc 69.60, Est GFR (MDRD) Af Amer 81, Est GFR (MDRD) Non-Af 67, BUN/Creatinine Ratio 18.6, Glucose 115 H, Calcium 8.1 L Micro: Microbiology 12/10/21 16:30 Blood Culture (Wb) - Anticubital Left Blood Culture - Preliminary No growth in 48 hours. 12/10/21 19:00 Blood Culture (Wb) - Anticubital Right Blood Culture - Preliminary No growth in 48 hours. 12/11/21 04:40 Urine, Random Urine Culture - Final Culture exhibits no growth. 12/11/21 04:40 Urine, Random Legionella Antigen - Final 12/11/21 04:40 Urine, Random Streptococcus pneumoniae Antigen (M - Final 12/10/21 19:05 Nasal Secretion SARS-CoV-2 Antigen (Rapid) - Final Rhythm Strip Rhythm Strip: Tachycardia Rate: 149 Ectopy: None Physical Exam Const alert, oriented x3 and no apparent distress General Appearance: cooperative Nutritional Appearance: obese HEENT normocephalic, head/scalp atraumatic and moist oral mucous membranes Eyes PERRL, EOMs intact bilaterally and conjunctivae normal Neck supple General: trachea midline Chest inspection of chest normal Resp Auscultation: diminished lung sounds Cardio regular rate and regular rhythm GI normal to inspection, nondistended, normoactive bowel sounds Extremity no clubbing, cyanosis or edema Skin no rashes or lesions noted Neuro CN's II-XII intact bilaterally, moves all extremities and no focal motor def icits Psych cooperative and affect normal Charges/Coding Visit Charges Inpatient E&M: 99300 Subs Hosp L2
--- NOTE | 2021-12-15 12:27 | PN.HOSP_ITS ---
Subjective Subjective Patient seen and examined. He feels much better today. He feels his breathing is improving. He denies any palpitations, dizziness, nausea or vomiting. He is on amiodarone and Cardizem drips at time of review. Review of systems otherwise negative. Objective Data Objective Data Vital Signs: Vital Signs Temp Pulse Resp BP Pulse Ox 97.8 F 80 27 H 133/103 H 95 12/15/21 12:00 12/15/21 12:00 12/15/21 12:00 12/15/21 12:00 12/15/21 12:00 Oxygen Flow Rate (L/min) [ 0 AMBULATING on Room Air] Oxygen Flow Rate (L/min) [At 0 REST on Room Air] Oxygen Flow Rate (L/min) 2 Oxygen Delivery Method Room Air Weight: 215 lb 13.321 oz Body Mass Index (BMI) 28.4 Intake & Output: Intake and Output for Last 24 Hours 12/13/21 12/14/21 12/15/21 23:59 23:59 23:59 Intake Total 1910. 417.71 / 417.71 Balance 1910.98 417.71 / 417.71 Lab / Micro Data Result Diagrams: 12/15/21 06:28 12/15/21 06:28 Labs: Laboratory Results - last 24 hr 12/15/21 06:28: WBC 11.2 H, RBC 3.98 L, Hgb 11.6 L, Hct 36.4 L, MCV 91.5, MCH 29.1, MCHC 31.9 L, RDW Std Deviation 51.8 H, RDW Coeff of Tone 15.5 H, Plt Count 212, MPV 11.3, Immature Gran % (Auto) 1.300 H, Neut % (Auto) 71.3 H, Lymph % (Auto) 20.6, [place] % (Auto) 5.9, Eos % (Auto) 0.5, Baso % (Auto) 0.4, Absolute Neuts (auto) 8.0 H, Absolute Lymphs (auto) 2.30, Nucleated RBC % 0 12/15/21 06:28: Sodium 139, Potassium 3.9, Chloride 113 H, Carbon Dioxide 19.0 L , Anion Gap 7, BUN 22 H, Creatinine 1.18, Estim Creat Clear Calc 69.60, Est GFR (MDRD) Af Amer 81, Est GFR (MDRD) Non-Af 67, BUN/Creatinine Ratio 18.6, Glucose 115 H, Calcium 8.1 L Micro: Microbiology 12/10/21 16:30 Blood Culture (Wb) - Anticubital Left Blood Culture - Preliminary No growth in 48 hours. 12/10/21 19:00 Blood Culture (Wb) - Anticubital Right Blood Culture - Preliminary No growth in 48 hours. 12/11/21 04:40 Urine, Random Urine Culture - Final Culture exhibits no growth. 12/11/21 04:40 Urine, Random Legionella Antigen - Final 12/11/21 04:40 Urine, Random Streptococcus pneumoniae Antigen (M - Final 12/10/21 19:05 Nasal Secretion SARS-CoV-2 Antigen (Rapid) - Final Rhythm Strip Rhythm Strip: Tachycardia Rate: 149 Ectopy: None Physical Exam Const alert, oriented x3 and no apparent distress Exam Limitations: no limitations and altered mental status HEENT head/scalp atraumatic and moist oral mucous membranes Head and Scalp: normocephalic Eyes PERRL, EOMs intact bilaterally and conjunctivae normal Neck no lymphadenopathy and supple Resp Resp Narrative: Diminished breath sounds bibasilarly. No wheezes or crackles. On room air. Cardio regular rate, regular rhythm, S1 normal heart sound, S2 normal heart sound and no murmurs Cardio Narrative: afib has converted to normal sinus rhythm GI normal to inspection, nondistended, normoactive bowel sounds, soft to palpation, non-tender and non-distended Extremity normal to inspection, full ROM and no clubbing, cyanosis or edema Peripheral Pulses: Yes pulses 2+ throughout Skin no rashes or lesions noted Neuro oriented x3, CN's II-XII intact bilaterally and moves all extremities Sensorium / Orientation: awake and alert Psych affect normal Assessment & Plan Assessment/Plan (1) Atrial fibrillation: (2) Pneumonia: (3) Acute hypotension: (4) Elevated troponin: PLAN: #Probable acute submassive PE * Could not have a CT of the chest due to his elevated creatinine on admission. Duplex of the lower extremities did show DVT; CT of the chest was not done subsequently when creatinine improved * troponin was also markedly elevated, which was due to the right heart strain from presumed PE * [facility] * He had elevated troponin as well as right heart strain on echo which was probably due to the PE. 2D echo showed severely dilated right ventricle and moderately severe global right ventricular systolic dysfunction with a pulmonary artery systolic pressure of 60 to 65 mmHg consistent with right heart strain. * Continue Eliquis. * * #New onset A. fib * Was noted to be in atrial fibrillation yesterday and was started on Lopressor. Heart rate however remained elevated so he was transitioned to amiodarone and Cardizem drips which he was on at time of review this morning. * He has converted to normal sinus rhythm. * I question whether this A. fib is as a result of the PE and so should resolve once PE has also resolved. * Neurology did review him and recommends continuing amiodarone drip. Low-dose Cardizem drip was also added on and to continue anticoagulation. * #Acute hypoxic respiratory failure due to acute submassive PE * Resolved. Patient now on room air. * Breathing treatments bronchodilators. Titrate oxygen to maintain saturation above 90%. * #Left-sided pneumonia * Now on room air. On antibiotics. * Breathing treatments with bronchodilators. Titrate oxygen to maintain saturation above 90%. * #BRODERICK: Resolved #History of alcohol use disorder * Currently not in withdrawal. Placed on CIWA protocol as prophylaxis for acute alcohol withdrawal. * Monitor CIWA score * DVT prophylaxis: Not indicated as patient is on Eliquis Charges/Coding Visit Charges Inpatient E&M: 63457 Subs Hosp L2
--- NOTE | 2021-12-15 13:20 | PN.CARD_ITS ---
Subjective Subjective The patient appears to be awake and alert. He had no new acute complaints. He states he still feels short of breath and dyspneic when he is up and ambulating. Objective Data Vital Signs: Vital Signs Temp Pulse Resp BP Pulse Ox 97.8 F 68 26 H 116/78 90 12/15/21 12:00 12/15/21 13:00 12/15/21 13:00 12/15/21 13:00 12/15/21 13:00 Oxygen Flow Rate (L/min) [ 0 AMBULATING on Room Air] Oxygen Flow Rate (L/min) [At 0 REST on Room Air] Oxygen Flow Rate (L/min) 2 Oxygen Delivery Method Room Air Weight: 215 lb 13.321 oz Body Mass Index (BMI) 28.4 Intake & Output: Intake and Output for Last 24 Hours 12/13/21 12/14/21 12/15/21 23:59 23:59 23:59 Intake Total 19004.16 / 1910.98 471.11 / 471.11 Balance 471.11 / 471.11 Lab / Micro Data Result Diagrams: 12/15/21 06:28 12/15/21 06:28 Labs: Laboratory Results - last 24 hr 12/15/21 06:28: WBC 11.2 H, RBC 3.98 L, Hgb 11.6 L, Hct 36.4 L, MCV 91.5, MCH 29.1, MCHC 31.9 L, RDW Std Deviation 51.8 H, RDW Coeff of Tone 15.5 H, Plt Count 212, MPV 11.3, Immature Gran % (Auto) 1.300 H, Neut % (Auto) 71.3 H, Lymph % (Auto) 20.6, Andrews % (Auto) 5.9, Eos % (Auto) 0.5, Baso % (Auto) 0.4, Absolute Neuts (auto) 8.0 H, Absolute Lymphs (auto) 2.30, Nucleated RBC % 0 12/15/21 06:28: Sodium 139, Potassium 3.9, Chloride 113 H, Carbon Dioxide 19.0 L , Anion Gap 7, BUN 22 H, Creatinine 1.18, Estim Creat Clear Calc 69.60, Est GFR (MDRD) Af Amer 81, Est GFR (MDRD) Non-Af 67, BUN/Creatinine Ratio 18.6, Glucose 115 H, Calcium 8.1 L Rhythm Strip Rhythm Strip: Tachycardia Rate: 149 Ectopy: None Cardiology Labs/Tests 12/15/21 06:28: WBC 11.2 H, RBC 3.98 L, Hgb 11.6 L, Hct 36.4 L, MCV 91.5, MCH 29.1, MCHC 31.9 L, Plt Count 212, MPV 11.3, Immature Gran % (Auto) 1.300 H, Neut % (Auto) 71.3 H, Lymph % (Auto) 20.6, Andrews % (Auto) 5.9, Eos % (Auto) 0.5, Baso % (Auto) 0.4, Absolute Neuts (auto) 8.0 H, Nucleated RBC % 0 12/15/21 06:28: Sodium 139, Potassium 3.9, Chloride 113 H, Carbon Dioxide 19.0 L , Anion Gap 7, BUN 22 H, Creatinine 1.18, Est GFR (MDRD) Af Amer 81, Est GFR (MDRD) Non-Af 67, BUN/Creatinine Ratio 18.6, Glucose 115 H, Calcium 8.1 L Rhythm: Sinus rhythm Physical Exam Const alert, oriented x3 and healthy appearing Orientation / Consciousness: awake HEENT normocephalic and head/scalp atraumatic Eyes PERRL, EOMs intact bilaterally and conjunctivae normal Neck full ROM, supple and no JVD Resp clear to auscultation bilaterally Cardio regular rate, regular rhythm, S1 normal heart sound and S2 normal heart sound GI normal to inspection, nondistended, normoactive bowel sounds Extremity no pedal edema Skin no rashes or lesions noted Psych mental status grossly normal Assessment & Plan Assessment/Plan (1) Atrial fibrillation: PLAN: The patient appears to have reverted to sinus rhythm. His IV diltiazem will be discontinued him he will be placed on oral diltiazem therapy. His IV amiodarone will be discontinued and he will be altered to oral amiodarone therapy-hopefully for only a short period of time as he recuperates from his acute event. We will continue anticoagulant therapy as well. Over time he will need to continue follow-up of his cardiac anatomy and physiology with a transthoracic echocardiogram. (2) Suspected pulmonary embolism: PLAN: The patient has underlying DVT and suspected PE. He is undergoing medical management at this time. Based upon the cardiovascular consultation there was a recommendation that consideration be given for the patient be transferred to a tertiary care center for further advanced care. This is under evaluation by the [facility] staff. Addt'l Comments This note was generated using a voice recognition system and there may be incorrect words, spelling or punctuation that were not noted when reviewing the office note prior to saving.
--- NOTE | 2021-12-15 14:34 | CASEMGMT ---
According to the [facility] community plan website, the following are in-network tertiary facilities: [facility], [place], [facility], [place], [facility], [facility], [facility], [place], [facility], and . Branden CALVO CM
[2021-12-15] MEDS: Amiodarone 200 MG Tablet PO ×2 (14:42→21:27)
--- NOTE | 2021-12-15 16:00 | CT_ITS ---
We are attempting to reach an attending provider to discuss findings. An addendum with communication details will be sent when the communication is complete. EXAM: CT ANGIOGRAPHY CHEST WITHOUT AND WITH INTRAVENOUS CONTRAST CLINICAL INDICATION: PE TECHNIQUE: Helically acquired angiography images were obtained of the chest without and with intravenous contrast. This CT exam was performed using one or more of the following dose reduction techniques: automated exposure control, adjustment of the mA and/or kV according to patient size, and/or use of iterative reconstruction technique. This report was created using [employer] report generation technology. MIP reconstructed images were created and reviewed. CONTRAST: IV 100mL Isovue-370 COMPARISON: None. FINDINGS: PULMONARY ARTERIES: There are bilateral pulmonary emboli. There is a saddle embolus. There is right heart strain. Normal in caliber. AORTA: Unremarkable. Normal in caliber. No evidence of dissection. GREAT VESSELS OF AORTIC ARCH: Unremarkable. Normal in caliber. No evidence of dissection. LUNGS AND PLEURAL SPACES: There is small right pleural effusion. Moderate left pleural effusion. Pneumonia. Left upper lobe and left lingular infiltrate. Left lower lobe infiltrate. This may represent a pneumonia. Pulmonary infarct is also in the differential There is prominence of the pulmonary hilar arteries without peripheral pulmonary vascular congestion, suggesting pulmonary hypertension. No mass. HEART: Unremarkable. Heart size is normal. No pericardial effusion. No signs of right heart strain, ratio of right ventricle to left ventricle measures less than 1. MEDIASTINUM: Unremarkable. No mediastinal or hilar adenopathy. Esophagus is unremarkable. No hiatal hernia. THYROID: Unremarkable. No thyroid lesions. BONES/JOINTS: There are degenerative findings of the thoracic spine. No suspicious lytic or blastic abnormality. CT/CTA Chest W/WO Contrast IMPRESSION: 1. There are bilateral pulmonary emboli. There is a saddle embolus. There is right heart strain. 2. There is small right pleural effusion. Moderate left pleural effusion. Pneumonia. 3. Left upper lobe and left lingular infiltrate. Left lower lobe infiltrate. This may represent a pneumonia. Pulmonary infarct is also in the differential Electronically Signed: Sohan Lanlgey MD at 16:42 EST Reading Location ID and State: [facility] / [place] , Service support ,
--- NOTE | 2021-12-15 16:22 | DS.PCM_ITS ---
Providers Date of Admission: 12/10/21 Primary Care Physician: Dr. Roberto Dowling MD Consultations 12/10/21 21:05 Consult: Primary School Principal / Pulmonary Medicine Routine Consulting Provider: Dragan Moreno Reason for Consult: Hypoxia EMERGENT Consult: No Notified: Yes Date Notified: 12/10/21 Time Notified: 19:27 Method of Notification: Text 12/14/21 01:44 Consult: Cardiology Routine Consulting Provider: Janina Thorne Reason for Consult: A. fib with RVR EMERGENT Consult: No Notified: Yes Date Notified: 12/14/21 Time Notified: 07:27 Method of Notification: Text Reason For Visit: HYPOXIA Diagnosis Discharge Diagnosis (1) Atrial fibrillation: Status: Acute Code(s): I48.91 - Unspecified atrial fibrillation (2) Pulmonary embolism: Status: Acute Code(s): I26.99 - Other pulmonary embolism without acute cor pulmonale (3) Acute hypotension: Status: Acute Code(s): I95.9 - Hypotension, unspecified (4) Elevated troponin: Status: Acute Code(s): R77.8 - Other specified abnormalities of plasma proteins (5) Acute kidney injury: Status: Acute Code(s): N17.9 - Acute kidney failure, unspecified Medications at Discharge Home Medications gabapentin 600 mg PO TID 12/10/21 lidocaine 1 - 3 patch TRANSDERMAL Q12H 12/10/21 lorazepam 0.25 mg PO DAILY PRN 12/10/21 Hospital Course Operations None Procedures 2-D Echocardiogram Summary of Care Provided Minutes Spent on Discharge: 65 Hospital Course: Patient is a 61-year-old male with a past medical history as outlined who was admitted through the ED on 12/10/2021 with a complaint of left- sided chest pain and shortness of breath which have been going on for about 6 days prior to admission. Patient had a prior history of pulmonary embolism about a year prior and had been on anticoagulation. He completed a treatment course and was taken off of it. He had associated lightheadedness and weakness. On admission he was found to be hypotensive with blood pressure of 94/64, heart rate was 151 and respiratory rate was 39 and SPO2 was 91% on room air but subsequently improved to 96% on 3 L of oxygen. His troponins were markedly elevated and CXR also showed patchy left lung opacities which could represent pneumonia and small effusion. Creatinine was also elevated at 2.05. D dimer was markedly elevated. He was admitted and managed for acute hypoxic respiratory insufficiency due to probable acute PE. He was started on heparin drip. He he could not have a CT of the chest because his creatinine was 2.05. Pulmonology was consulted. Duplex of the lower extremities done was positive for DVT. Pul monology reviewed patient recommended a CTA once creatinine had improved. Patient was transitioned to [facility]. Patient subsequently developed A. fib with RVR was started on amiodarone and Cardizem drips. Cardiology was consulted. He had a 2D echo which showed severe right ventricular strain and pulmonary systolic pressure of 60 to 65 mmHg. Due to patient's constellation of findings including the chest pain and shortness of breath, new onset A. fib as well as elevated D-dimer and initial hypotension as well as severe right ventricular strain and elevated pulmonary artery pressure, patient met the criteria for submassive PE. There was concern about need for possible thrombectomy and so [facility] was contacted and he was accepted for thrombectomy. He did have CTA of the chest done which showed bilateral pulmonary emboli with a saddle embolus and right heart strain. He was transferred to [facility] on 12/16/2021. Patient was seen and examined prior to transfer. He had no active complaints. He had been weaned off cardizem and amiodarone. Review of systems was otherwise negative. Labs and vitals reviewed. Home meds reviewed and reconciled. Physical Exam Const alert, oriented x3 and no apparent distress General Appearance: cooperative and comfortable Exam Limitations: no limitations HEENT normocephalic, head/scalp atraumatic and moist oral mucous membranes Eyes PERRL, EOMs intact bilaterally and conjunctivae normal Neck no lymphadenopathy, supple and no JVD Resp Resp Narrative: Diminished breath sounds bibasilarly. No wheezes or crackles. On room air. Auscultation: diminished lung sounds; Negative for crackles, rales, rhonchi or wheezes Cardio regular rate, regular rhythm, S1 normal heart sound, S2 normal heart sound and no murmurs Cardio Narrative: afib has converted to normal sinus rhythm GI normal to inspection, nondistended, normoactive bowel sounds, soft to palpation, non-tender and non-distended; Negative for hepatosplenomegaly Extremity normal to inspection, full ROM and no clubbing, cyanosis or edema Skin no rashes or lesions noted Neuro oriented x3, CN's II-XII intact bilaterally, moves all extremities, no focal motor deficits and no sensory deficits noted Sensorium / Orientation: awake and alert Psych affect normal Appearance: appropriate Weight / BMI Weight Weight: 215 lb 13.321 oz Body Mass Index (BMI) 28.4 ABG / Lab / Microbiology Data Result Diagrams: 12/15/21 06:28 12/15/21 06:28 Laboratory: Laboratory Results - last 24 hr 12/15/21 06:28: WBC 11.2 H, RBC 3.98 L, Hgb 11.6 L, Hct 36.4 L, MCV 91.5, MCH 29.1, MCHC 31.9 L, RDW Std Deviation 51.8 H, RDW Coeff of Tone 15.5 H, Plt Count 212, MPV 11.3, Immature Gran % (Auto) 1.300 H, Neut % (Auto) 71.3 H, Lymph % (A uto) 20.6, Isabela % (Auto) 5.9, Eos % (Auto) 0.5, Baso % (Auto) 0.4, Absolute Neuts (auto) 8.0 H, Absolute Lymphs (auto) 2.30, Nucleated RBC % 0 12/15/21 06:28: Sodium 139, Potassium 3.9, Chloride 113 H, Carbon Dioxide 19.0 L , Anion Gap 7, BUN 22 H, Creatinine 1.18, Estim Creat Clear Calc 69.60, Est GFR (MDRD) Af Amer 81, Est GFR (MDRD) Non-Af 67, BUN/Creatinine Ratio 18.6, Glucose 115 H, Calcium 8.1 L Microbiology: Microbiology 12/10/21 16:30 Blood Culture (Wb) - Anticubital Left Blood Culture - Preliminary No growth in 48 hours. 12/10/21 19:00 Blood Culture (Wb) - Anticubital Right Blood Culture - Preliminary No growth in 48 hours. 12/11/21 04:40 Urine, Random Urine Culture - Final Culture exhibits no growth. 12/11/21 04:40 Urine, Random Legionella Antigen - Final 12/11/21 04:40 Urine, Random Streptococcus pneumoniae Antigen (M - Final 12/10/21 19:05 Nasal Secretion SARS-CoV-2 Antigen (Rapid) - Final D/C Instructions Discharge Diet: No restrictions Meaningful Use Info Meaningful Use Diagnoses (Choose all that apply): VTE VTE Anticoag overlap given w/in hospital stay or rx'd at dc?: Yes Pt receive overlap for 5 days?: No Reason overlap not ordered, prescribed, or given for 5 days: Procedure Not Indicated Discharge Plan Admission Admit Date/Time: 12/10/21 19:14 Primary Reason for Your Visit: acute submassive PE Attending Provider: Lali Ko Primary Care Provider: Roberto Dowling Consulting Providers: Dragan Moreno ; Janina Thorne Discharge Orders/Prescriptions Prescriptions: No Action gabapentin 600 mg tablet 600 mg PO TID RF: 0 lorazepam 0.5 mg tablet 0.25 mg PO DAILY PRN (Reason: Anxiety) RF: 0 lidocaine 5 % adhesive patch,medicated 1 - 3 patch transdermal Q12H RF: 0 Referrals / Follow Up: Roberto Dowling MD [Primary Care Provider] - Disposition Discharge Orders: Discharge Patient (Routine); Ordered 12/15/21 Ordered By: Rayna Michel Charges/Coding Visit Charges Inpatient E&M: [id number] Disch Hosp
[2021-12-15] MEDS: Lidocaine 5% Patch TOPICAL (21:25)
[2021-12-15] MEDS: Acetaminophen 325 MG Tablet 650 MG PO (21:31)
[2021-12-15] MEDS: LORazepam 1 MG Tablet PO (21:46)
--- NOTE | 2021-12-15 22:13 | NURSING ---
Report given to transport, pt leaving shortly w/ belongings.
== END 2021-12-15 22:26 | disposition short-term general hospital (02) | DRG 134 ==
LOC: ED 18:50 → ICU 19:42 → PCU 12-12 07:44
PROVIDERS: Family Medicine; Internal Medicine Critical Care Medicine; Admitting Provider Internal Medicine; Emergency Provider Emergency Medicine; PCP Family Medicine; Visit Provider Student in an Organized Health Care Education/Training Program
DX: I26.92 Saddle embolus of pulmonary artery without acute cor pulmonale (principal); J96.01 Acute respiratory failure with hypoxia; N17.9 Acute kidney failure, unspecified; E87.2 Acidosis; J18.9 Pneumonia, unspecified organism; I95.9 Hypotension, unspecified; E86.0 Dehydration; I82.409 Acute embolism and thrombosis of unspecified deep veins of unspecified lower extremity; I48.91 Unspecified atrial fibrillation; F10.230 Alcohol dependence with withdrawal, uncomplicated; F17.200 Nicotine dependence, unspecified, uncomplicated; F10.10 Alcohol abuse, uncomplicated; N18.9 Chronic kidney disease, unspecified; R09.02 Hypoxemia; R77.8 Other specified abnormalities of plasma proteins; G89.4 Chronic pain syndrome; Z79.01 Long term (current) use of anticoagulants; Z66 Do not resuscitate
CPT/HCPCS: 36415; 71045; 71275; 80048; 80053; 81001; 82570; 82962; 83036; 83605; 83735; 84300; 84443; 84484; 85025; 85379; 85610; 85730; 87040; 87086; 87426; 87449; 93005; 93306; 93970; 94640; 97802; 99285; 99406; J7030; J7040; J7050; Q9967; A4216; J0153

== ENCOUNTER → 2022-02-12 | Outpatient (CLI) | payer MEDICAID, SELFPAY | END | disposition home or self-care (01) | LOC: PSN 12:00 | PROVIDERS: PCP Family Medicine; Referring Provider Family Medicine; Visit Provider Family Medicine | DX: I48.91 Unspecified atrial fibrillation (principal) | CPT/HCPCS: 93225; 93226 ==

== ENCOUNTER → 2022-10-20 | Outpatient (CLI) | payer MEDICAID, SELFPAY ==
[2022-10-20 17:38] LABS: Absolute Neutrophil Count 6.2 X10^3/uL (2.0-7.7); Basophil# 0.05 X10^3/uL; Basophil% 0.5 % (0-1); Eosinophil# 0.14 X10^3/uL; Eosinophils% 1.4 % (0-5); Hemoglobin 12.9 g/dL (13.0-16.5); Lymphocyte % 26.7 % (19-41); Mean Corp Hgb Conc 32.3 g/dL (32-36); Mean Corpuscular Hgb 27.4 pg (27.0-32.0); Mean Corpuscular Volume 85.1 fL (80-94); Mean Platelet Vol. 11.3 fl (6.2-12.0); Monocyte# 0.71 X10^3/uL; Monocyte% 7.3 % (0-10); NRBC Flagged by Analyzer 0 % (0-5); Neutrophil % 63.9 % (47-70); Platelet Count 225 K/mm3 (150-450); RBC Distribution Width CV 15.2 % (11.6-14.6); RBC Distribution Width SD 47.4 fl (35.1-43.9); White Blood Count 9.7 K/mm3 (4.4-11.0)
[2022-10-20 18:02] LABS: AST(SGOT) 19 U/L (15-37); Alanine Aminotransfer ALT/SGPT 29 U/L (16-61); Albumin, Serum 3.7 g/dL (3.2-5.0); Alkaline Phosphatase 114 U/L (45-117); Anion Gap 7 (5-15); BUN 25 mg/dL (7-18); BUN/Creat Ratio 16.4 RATIO (10-20); Bilirubin, Direct 0.14 mg/dL (0.00-0.30); Calcium,Total 8.9 mg/dL (8.5-10.1); Chloride 108 mmol/L (98-107); Creatinine, Serum 1.52 mg/dL (0.70-1.30); EST Glomerular Filtration Rate 50 mL/min (>60); Est Glom Filt Rate - Afr Amer 60 mL/min (>60); Globulin 3.8 g/dL (2.2-4.2); Glucose 75 mg/dL (74-106); Potassium 4.3 mmol/L (3.5-5.1); Protein, Total 7.5 g/dL (6.4-8.2); Sodium Level 139 mmol/L (136-145)
[2022-10-22 14:09] LABS: QNTFERON TB Mitogen Value > 10.00 IU/mL (.); QNTFERON TB Nil Value 0.01 IU/mL (.); QNTFERON TB1+ Ag Value 0.02 IU/mL (.); QNTFERON TB2+ Ag Value 0.01 IU/mL (.)
[2022-10-22 21:03] LABS: Hepatitis B Core Ab Total Negative (Negative); QNTIFERON TB Positive Criteria Negative (Negative)
== END | disposition home or self-care (01) ==
LOC: MTLAB 14:50
PROVIDERS: PCP Family Medicine; Referring Provider Physician Assistant Medical; Visit Provider Physician Assistant Medical
DX: L73.2 Hidradenitis suppurativa (principal); L82.1 Other seborrheic keratosis; D48.5 Neoplasm of uncertain behavior of skin
CPT/HCPCS: 36415; 80048; 80076; 85025; 86480; 86704

== ENCOUNTER → 2023-06-26 | Outpatient (CLI) | payer MEDICAID, SELFPAY ==
--- NOTE | 2023-06-26 07:57 | US_ITS ---
INDICATION: MASS -- LEFT EXAMINATION: Ultrasound US Scrotum (Contents) TECHNIQUE: Realtime ultrasound of the testicles was performed with grayscale, Color Doppler and spectral Doppler analysis. COMPARISON: FINDINGS: RIGHT: TESTIS: 4.5 x 2.7 x 2.1 cm. Normal in size but with simple cysts seen measuring 0.8 x 0.9 x 0.2 cm and second simple cyst measuring 0.4 x 0.5 x 0.2 cm. COLOR DOPPLER: Normal arterial flow present in the testicle with monophasic waveforms. EPIDIDYMIS: Normal in size and echotexture, without focal lesion. [Normal color Doppler flow pattern in the epididymis. HYDROCELE: Yes 1.9 x 2.1 x 0.9 cm. VARICOCELE: None. LEFT: TESTIS: 4.3 x 2.8 x 2.1 cm. Normal in size and echotexture, without focal lesion. COLOR DOPPLER: Normal arterial flow present in the testicle with monophasic waveforms. EPIDIDYMIS: Epididymal cyst 1.5 x 2.3 x 1.3 cm. [Normal color Doppler flow pattern in the epididymis. HYDROCELE: Yes 2.3 x 3.7 x 1.0 cm. VARICOCELE: None. US/Testicular with Arterial Flow IMPRESSION: Small bilateral hydroceles. 2. Small cysts within the right testes less likely ectasia of the rete testes. Left epididymal cyst 1.5 x 2.3 x 1.3 cm corresponding to palpable abnormality. Electronically Signed: Jose Persaud MD at 10:35 EDT ,
== END | disposition home or self-care (01) ==
PROVIDERS: PCP Family Medicine; Referring Provider Family Medicine; Visit Provider Family Medicine
DX: N50.89 Other specified disorders of the male genital organs (principal)
CPT/HCPCS: 76870; 93976

== ENCOUNTER 2023-07-29 10:27 | Inpatient (IN) | payer MEDICAID, SELFPAY ==
[2023-07-29] VITALS (10 sets, daily range): BP systolic 107–149; BP diastolic 66–91; PULSE 72–108; RESP 16–20; TEMP 36.4–37.8; O2SAT 92–98; BMI 28.7
--- NOTE | 2023-07-29 10:32 | EX.ED.DYSGE1 ---
HPI History of Present Illness Chief Complaint: Abd Pain PFSH PFSH Medical History Alcohol abuse Anxiety Hearing loss, left Pulmonary embolism Smoker Home Medications gabapentin 600 mg tablet 600 mg PO TID 12/10/21 [History Last Taken 12/09/21] lidocaine 5 % topical patch 1 - 3 patch transdermal Q12H PAIN 12/10/21 [History Last Taken 12/09/21] lorazepam 0.5 mg tablet 0.25 mg PO DAILY PRN Anxiety 12/10/21 [History Last Taken Unknown] amlodipine 5 mg tablet 5 mg PO DAILY 07/29/23 [History Last Taken Unknown] duloxetine 30 mg capsule,delayed release 60 mg PO QHS 07/29/23 [History Last Taken Unknown] duloxetine 60 mg capsule,delayed release 60 mg PO .MORNING 07/29/23 [History Last Taken Unknown] Allergy/AdvReac Type Severity Reaction Status Date / Time No Known Allergies Allergy Verified 07/29/23 10:27 Family History Mother Cancer ovarian Social History household members: none housing: house current occupational status: employed Smoking Status: Current some day smoker tobacco type: cigars alcohol intake: current substance use type: does not use EXAM Physical Exam Const Vital Signs: 07/29/23 10:28 07/29/23 12:40 07/29/23 12:40 Temperature 98 F 99 F 99 F Temperature Source Temporal Oral Oral Pulse Rate 108 H 92 92 Respiratory Rate 18 18 18 Blood Pressure 149/85 H 116/76 116/76 Blood Pressure Mean 106 89 89 Blood Pressure Source Monitor Blood Pressure Position Semi-Fowlers Blood Pressure Location Left Arm Pulse Ox 96 97 97 Oxygen Delivery Method Room Air Room Air Room Air MDM MDM MDM Narrative Medical decision making narrative: HISTORY OF PRESENT ILLNESS: 63-year-old male here with abdominal pain. Notes this began yesterday. He states this could be associated with a urine infection or his appendix. He notes nausea, decreased appetite but no fevers no vomiting. Denies any testicular pain. Does note pain with urination but denies any hematuria frequency or urgency. Denies history of abdominal surgeries. REVIEW OF SYSTEMS: Pertinent positives: Abdominal pain Pertinent negatives: Vomiting, melena, fever PHYSICAL EXAM: Nursing triage notes reviewed, Vital signs reviewed Constitutional: please see mdm HENT: MMM Eyes: Pupils equal round and reactive to light, Extraocular muscles intact Neck: No stridor, no JVD, full neck ROM Lungs: Clear to auscultation, No wheezing or rales. No increased work of breathing, no conversational dyspnea, no accessory muscle use, no nasal flaring. No respiratory distress noted Heart: Regular rate and rhythm, No murmurs, No rubs and No gallops, 2+ distal pulses (radial, femoral, posterior tibial) in all extremities Abdomen: Soft, right lower quadrant TTP, there is no rigidity, rebound or guarding, no obvious peritoneal signs, no palpable pulsatile abdominal masses, no auscultated abdominal bruit : No CVAT Extremities: No edema Neuro: No focal neurological deficits, cranial nerves II through XII intact, 5/5 strength in all extremities. Intact sensation to light touch in all extremities, 2+ reflexes bilateral patella tendons. Normal gait. No ataxia. Skin: No rash or lesions noted MEDICAL DECISION MAKING: Chief Complaint: Abdominal pain External records reviewed: Imaging reviewed: Testicular ultrasound from June 2023 shows IMPRESSION: Small bilateral hydroceles. 2. Small cysts within the right testes less likely ectasia of the rete testes. Left epididymal cyst 1.5 x 2.3 x 1.3 cm corresponding to palpable abnormality. Factors affecting care: Atrial fibrillation, pneumonia Social determinants of health: Heavy smoker History obtained from others: The patient significant other Consults: none [facility] Narrative: Patient was initially tachycardic otherwise hemodynamically stable. Abdominal exam with right lower quadrant tenderness, no CVA tenderness. I considered the following differential diagnosis: Appendicitis, nephrolithiasis, pyelonephritis, AAA, bowel obstruction, perforation, hernia I treated the patient with IV fluids, IV narcotics in the form of morphine, IV anti-inflammatories and formal Toradol and 1 L normal saline. He was kept NPO. ALL IMAGES (IF OBTAINED) HAVE BEEN PERSONALLY REVIEWED AND INTERPRETED BY MYSELF. EKG with Normal sinus rhythm, left ax deviation, no murmurs, no STEMI CBC with concerning leukocytosis to 20,000 consistent with systemic inflammation BMP with mild hyponatremia, noted acute kidney injury, there is no anion gap to suggest endorgan hypoperfusion LFTs with elevation and total bilirubin no evidence of elevation liver transaminases or evidence of obstructive pathology Lipase is wnl indicating no pancreatic inflammation. Urinalysis shows no evidence of urinary inflammation suggestive of UTI CT scan of the abdomen pelvis was read reviewed myself showed evidence of right lower quadrant inflammation, edematous large appendix concerning for acute appendicitis. Radiologist agrees with my interpretation. The amalgamation patient's labs images are consistent with acute appendicitis. He was treated with Zosyn. Surgery was consulted. Spoke with Dr. Calixto. He agreed take the patient to surgery for emergent appendectomy. The patient and/or family, caregivers express understanding. The patient and/or family, caregivers agrees with the plan. Shared decision making: I will have a discussion with the patient and or visitors regarding risk/benefits of further testing or admission. They will be made aware of of the risk/benefits inherent in this decision they will be given the opportunity to voice understanding. Total critical care time today provided was at least 35 minutes. This excludes separately billable procedures. Critical care time (if documented) is secondary to the patient having high probability of clinically significant/life threatening deterioration in the patient's condition which required my urgent intervention. Impression: 1. Right lower quad abdominal pain 2. Acute appendicitis 3. Leukocytosis 4. Hyponatremia Dispo: Admit to OR for definitive surgical intervention Lab Data Labs: Laboratory Results - last 24 hr 07/29/23 07/29/23 10:44 11:38 WBC 23.0 H RBC 4.88 Hgb 14.0 Hct 43.5 MCV 89.1 MCH 28.7 MCHC 32.2 RDW Std Deviation 49.7 H RDW Coeff of Tone 15.1 H Plt Count 161 MPV 10.3 Immature Gran % (Auto) 0.800 Neut % (Auto) 84.5 H Lymph % (Auto) 6.5 L [place] % (Auto) 7.9 Eos % (Auto) 0.0 Baso % (Auto) 0.3 Absolute Neuts (auto) 19.4 H Absolute Lymphs (auto) 1.50 Nucleated RBC % 0 Differential Comment SCANNED Diff Path Review May foll Sodium 133 L Potassium 3.9 Chloride 104 Carbon Dioxide 24.0 Anion Gap 5 BUN 13 Creatinine 1.39 H Estim Creat Clear Calc 59.44 Est GFR (MDRD) Af Amer 67 Est GFR (MDRD) Non-Af 55 L BUN/Creatinine Ratio 9.4 L Glucose 144 H Calcium 8.8 Total Bilirubin 1.20 H Direct Bilirubin 0.42 H AST 25 ALT 38 Alkaline Phosphatase 109 Total Protein 7.6 Albumin 3.4 Globulin 4.2 Lipase 18 Urine Color Yellow Urine Clarity Clear Urine pH 5.0 Ur Specific [place] 1.015 Urine Protein 30 H Urine Glucose (UA) Normal Urine Ketones 5 H Urine Occult Blood 10 H Urine Nitrite Negative Urine Bilirubin Negative Urine Urobilinogen Normal Ur Leukocyte Esterase 25 H Urine RBC 0 SEEN Urine WBC 0-5 SEEN Ur Squamous Epith Cells 0 SEEN Urine Bacteria 0 SEEN Urine Mucus 0 SEEN Radiography Diagnostic Testing: Clinical Impression(s) from Imaging Studies Abdomen/Pelvis CT 07/29/23 10:35 IMPRESSION: Inflammatory changes in the right lower quadrant in keeping with acute appendicitis. Fatty infiltration of the liver. Electronically Signed: Nito Daniels MD at 12:02 EDT , Discharge Plan Triage Chief Complaint: Abd Pain ED Provider: Peter Guerrero Dx/Rx/DC Orders Prescriptions: No Action gabapentin 600 mg tablet 600 mg PO TID lorazepam 0.5 mg tablet 0.25 mg PO DAILY PRN (Reason: Anxiety) lidocaine 5 % adhesive patch,medicated 1 - 3 patch transdermal Q12H Patient Comments: PT STATES MAY USE UP TO 3 PATCHES IN A 12 HOUR PERIOD. amlodipine 5 mg tablet 5 mg PO DAILY duloxetine 60 mg capsule,delayed release(DR/EC) 60 mg PO .MORNING duloxetine 30 mg capsule,delayed release(DR/EC) 60 mg PO QHS Primary Care Provider: Roberto Dowling Referrals: Roberto Dowling MD [Primary Care Provider] -
--- NOTE | 2023-07-29 10:35 | CT_ITS ---
STUDY: CT ABDOMEN AND PELVIS WITH CONTRAST REASON FOR EXAM: Male, 63 years old. RLQ abdominal pain, rule out appendicitis. RADIATION DOSAGE (If Supplied By Facility): CTDIvol = ( 15.97 ) mGy, DLP = ( 1196.31 ) mGycm TECHNIQUE: Transaxial images were obtained from the dome of the diaphragm to the symphysis pubis without oral contrast. IV 100mL Isovue-370 was administered. Sagittal and coronal images were reconstructed. Individualized dose optimization techniques were used for this CT. COMPARISON: None. FINDINGS: Increased markings in the lower SUGGESTIVE of prior linear scarring and/or atelectasis. The visualized portions of the heart are within normal limits. There is decreased attenuation of the liver consistent with steatosis. Normal gallbladder and extrahepatic biliary system. Normal spleen. Normal pancreas. Normal bilateral adrenal glands. Normal right kidney. Normal left kidney. Normal visualized stomach. Normal small intestine. There are multiple colonic diverticula consistent with diverticulosis. There is a tubular, thick-walled appendix (>7mm), consistent with acute appendicitis. There is scattered atherosclerotic calcification of the abdominal aorta, without a demonstrated aneurysm. Normal inferior vena cava. Normal retroperitoneum. Mild degree of diffuse bladder wall thickening. There are prostatic calcifications. Normal abdominal wall. Normal osseous structures. CT/Abdomen/Pelvis W IV Cont ONLY IMPRESSION: Inflammatory changes in the right lower quadrant in keeping with acute appendicitis. Fatty infiltration of the liver. Electronically Signed: Nito Daniels MD at 12:02 EDT ,
[2023-07-29] MEDS: 0.9% Normal Saline (1000mL) 1,000 ML 1000 ML IV (10:44)
[2023-07-29 10:50] LABS: Absolute Neutrophil Count 19.4 X10^3/uL (2.0-7.7); Basophil# 0.06 X10^3/uL; Basophil% 0.3 % (0-1); Hematocrit 43.5 % (40-54); Lymphocyte % 6.5 % (19-41); Mean Corp Hgb Conc 32.2 g/dL (32-36); Mean Corpuscular Hgb 28.7 pg (27.0-32.0); Mean Corpuscular Volume 89.1 fL (80-94); Mean Platelet Vol. 10.3 fl (6.2-12.0); Monocyte# 1.82 X10^3/uL; Monocyte% 7.9 % (0-10); NRBC Flagged by Analyzer 0 % (0-5); Neutrophil # 19.42 X10^3/uL (2.7-7.7); Neutrophil % 84.5 % (47-70); POSITIVE DIFFERENTIAL YES; Platelet Count 161 K/mm3 (150-450); RBC Distribution Width CV 15.1 % (11.6-14.6); RBC Distribution Width SD 49.7 fl (35.1-43.9); Red Blood Count 4.88 M/mm3 (4.6-6.2)
[2023-07-29 11:05] LABS: AST(SGOT) 25 U/L (15-37); Alanine Aminotransfer ALT/SGPT 38 U/L (16-61); Albumin, Serum 3.4 g/dL (3.2-5.0); Alkaline Phosphatase 109 U/L (45-117); Anion Gap 5 (5-15); BUN 13 mg/dL (7-18); BUN/Creat Ratio 9.4 RATIO (10-20); Bilirubin, Direct 0.42 mg/dL (0.00-0.30); Calcium,Total 8.8 mg/dL (8.5-10.1); Chloride 104 mmol/L (98-107); Creatinine, Serum 1.39 mg/dL (0.70-1.30); EST Glomerular Filtration Rate 55 mL/min (>60); Est Glom Filt Rate - Afr Amer 67 mL/min (>60); Estimated Creatinine Clearance 59.44 ml/min; Globulin 4.2 g/dL (2.2-4.2); Glucose 144 mg/dL (74-106); Lipase 18 U/L (13-75); Potassium 3.9 mmol/L (3.5-5.1); Protein, Total 7.6 g/dL (6.4-8.2); Sodium Level 133 mmol/L (136-145)
[2023-07-29 11:10] LABS: Differential Comment SCANNED; Differential Indicated SCAN CRITERIA MET
[2023-07-29 11:43] LABS: Bacteria 0 SEEN /hpf (None Seen); Mucous, Urine 0 SEEN /hpf (<or=2+); Red Blood Cells-Urine 0 SEEN /hpf (0-5); Squamous Epithelial Cells - UA 0 SEEN /hpf (0-5)
[2023-07-29 11:46] LABS: Color, Urine Yellow (Yellow); Glucose, Dipstick Normal (Normal); Ketone-Dipstick 5 mg/dl (Negative); Leukocyte Esterase-Dipstick 25 /ul (Negative); Nitrite-Dipstick Negative (Negative); Occult Blood-Urine 10 /ul (Negative); Protein-Dipstick 30 mg/dl (Negative); Specific Gravity, Urine 1.015 (1.002-1.030); Urine Bilirubin Dipstick Negative (Negative); Urine Clarity Clear (Clear); Urine Urobilinogen Normal (Normal)
[2023-07-29 11:57] LABS: White Blood Cells 0-5 SEEN /hpf (0-5)
--- NOTE | 2023-07-29 12:14 | EKG12_ITS ---
Test Reason : PRE OP Blood Pressure : / mmHG Vent. Rate : 092 BPM Atrial Rate : 092 BPM P-R Int : 160 ms QRS Dur : 084 ms QT Int : 346 ms P-R-T Axes : 055 -17 024 degrees QTc Int : 427 ms Normal sinus rhythm Normal ECG Confirmed by MARY BETH CHUNG, NEIDA ([id number]), digital editor UARELIA RODRIGUEZ ([id number]) on 08/03/2023 12:35:41 PM Referred By: Confirmed By:NEIDA CLINTON MD
[2023-07-29] MEDS: Piperacil/Tazobactam 3.375 GM in 0.9% Normal Saline (50mL MB+) 50 ML IV ×2 (12:55→20:35)
--- NOTE | 2023-07-29 13:07 | PCM.HP.STD ---
HPI - General General Date of Admission: 07/29/23 Chief Complaint: Abdominal pain HPI Narrative LESA SWAN, is a 63 M who presents to [facility] with his with complaints of progressive abdominal pain that migrated from the upper portion of his abdomen to the right lower quadrant. He states that this has not been associated with nausea or vomiting but he did have a slight fever. He states that he initially thought this was gas cramps or a bladder infection (a diagnosis that he has had remotely). Patient's ER work-up is notable for CBC with leukocytosis of 23,000. CT imaging of the abdomen pelvis was performed which was read by radiology as consistent with acute appendicitis . 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 He reports that he then went on for a suction embolectomy and is followed by incubator operator, Dr. Teague through [facility]. He confirms that he was initially placed on both beta-blockade as well as anticoagulation for the diagnosis of atrial fibrillation, however, due to bradycardia the beta-blockade was removed and patient was just continued on some amlodipine. He continues to this day on Xarelto with his last dose being last night. [facility] Medical History Alcohol abuse Anxiety Hearing loss, left Pulmonary embolism Smoker Home Medications gabapentin 600 mg tablet 600 mg PO TID 12/10/21 [History Last Taken 12/09/21] lidocaine 5 % topical patch 1 - 3 patch transdermal Q12H PAIN 12/10/21 [History Last Taken 12/09/21] lorazepam 0.5 mg tablet 0.25 mg PO DAILY PRN Anxiety 12/10/21 [History Last Taken Unknown] amlodipine 5 mg tablet 5 mg PO DAILY 07/29/23 [History Last Taken Unknown] duloxetine 30 mg capsule,delayed release 60 mg PO QHS 07/29/23 [History Last Taken Unknown] duloxetine 60 mg capsule,delayed release 60 mg PO .MORNING 07/29/23 [History Last Taken Unknown] Allergy/AdvReac Type Severity Reaction Status Date / Time No Known Allergies Allergy Verified 07/29/23 10:27 Family History Mother Cancer ovarian Social History household members: none housing: house current occupational status: employed Smoking Status: Current some day smoker tobacco type: cigars alcohol intake: current substance use type: does not use Vital Signs Vital Signs Vital Signs: 07/29/23 10:28 07/29/23 12:40 07/29/23 12:40 Temperature 98 F 99 F 99 F Temperature Source Temporal Oral Oral Pulse Rate 108 H 92 92 Respiratory Rate 18 18 18 Blood Pressure 149/85 H 116/76 116/76 Blood Pressure Mean 106 89 89 Blood Pressure Source Monitor Blood Pressure Position Semi-Fowlers Blood Pressure Location Left Arm Pulse Ox 96 97 97 Oxygen Delivery Method Room Air Room Air Room Air Weight Weight: 206 lb 2.115 oz Body Mass Index (BMI) 28.7 Physical Exam Const alert, oriented x3 and no apparent distress Resp normal respiratory effort GI GI Narrative: Overweight, no scars, small umbilical herniation present, nondistended. Soft, tender to palpation with voluntary guarding of the right lower quadrant Results Lab / Micro Data 07/29/23 10:44 07/29/23 10:44 Labs: Laboratory Results - last 24 hr 07/29/23 10:44: WBC 23.0 H, RBC 4.88, Hgb 14.0, Hct 43.5, MCV 89.1, MCH 28.7, MCHC 32.2, RDW Std Deviation 49.7 H, RDW Coeff of Tone 15.1 H, Plt Count 161, MPV 10.3, Immature Gran % (Auto) 0.800, Neut % (Auto) 84.5 H, Lymph % (Auto) 6.5 L, [place] % (Auto) 7.9, Eos % (Auto) 0.0, Baso % (Auto) 0.3, Absolute Neuts (auto) 19.4 H, Absolute Lymphs (auto) 1.50, Nucleated RBC % 0, Differential Comment SCANNED, Diff Path Review February, Sodium 133 L, Potassium 3.9, Chloride 104, Carbon Dioxide 24.0, Anion Gap 5, BUN 13, Creatinine 1.39 H, Estim Creat Clear Calc 59.44, Est GFR (MDRD) Af Amer 67, Est GFR (MDRD) Non-Af 55 L, BUN/Creatinine Ratio 9.4 L, Glucose 144 H, Calcium 8.8, Total Bilirubin 1.20 H, Direct Bilirubin 0.42 H, AST 25, ALT 38, Alkaline Phosphatase 109, Total Protein 7.6, Albumin 3.4, Globulin 4.2, Lipase 18 07/29/23 11:38: Urine Color Yellow, Urine Clarity Clear, Urine pH 5.0, Ur Specific [place] 1.015, Urine Protein 30 H, Urine Glucose (UA) Normal, Urine Ketones 5 H, Urine Occult Blood 10 H, Urine Nitrite Negative, Urine Bilirubin Negative, Urine Urobilinogen Normal, Ur Leukocyte Esterase 25 H, Urine RBC 0 SEEN, Urine WBC 0-5 SEEN, Ur Squamous Epith Cells 0 SEEN, Urine Bacteria 0 SEEN, Urine Mucus 0 SEEN Radiology Impression Abdomen/Pelvis CT 07/29/23 10:35 IMPRESSION: Inflammatory changes in the right lower quadrant in keeping with acute appendicitis. Fatty infiltration of the liver. Electronically Signed: Nito Daniels MD at 12:02 EDT , Assessment & Plan Assessment/Plan (1) Acute appendicitis: PLAN: Patient is a 63-year-old male with signs and symptoms of acute appendicitis. By my independent review of the CT imaging I confirm a concern for possible perforated appendicitis with extraluminal air adjacent a very inflamed appendix. I have counseled patient extensively about his diagnosis and possible treatment options. I have shared with him that he is at increased risk for bleeding as well as postprocedural infection given his concurrent use of anticoagulation and concern for perforation, respectively. However, at this point we jointly decided to proceed with emergent laparoscopic appendectomy as I am concerned the patient's markedly elevated white blood cell count and rapid progression of his inflammatory process (under 48 hours with signs of perforation) puts him at risk for sepsis. Patient to be dosed with empiric IV antibiotics by emergency medicine and EKG to be obtained. I have confirmed through pharmacy that we do have Kcentra available for reversal of patient's anticoagulation if required. We will also obtain a type and cross and a precautionary measure. Patient is aware that he will also be admitted postoperatively for careful monitoring for signs of abscess development, ileus, bleeding, other? Charges/Coding Visit Charges Inpatient E&M: 94911 Subs Hosp L2
[2023-07-29 13:54] LABS: International Normalized Ratio 1.3; Prothrombin Time (Protime)PT. 16.3 SECONDS (11.7-14.9)
[2023-07-29 14:06] LABS: Partial Thromboplast Time 36.6 Seconds (24.1-36.2)
[2023-07-29] MEDS: 0.9% Normal Saline (1000mL) 1,000 ML 125 ML IV ×2 (14:45→20:21)
--- NOTE | 2023-07-29 16:10 | APP_PTH ---
PATHOLOGY RESULTS PATIENT: LESA SWAN LOC: MS3 U#:[id number] AGE/SX: 63/M ROOM: LA317 RE07/30/[address]: Dr. Gautam Cailxto MD : [id number] BED: 1 DIS: 08/01/2023 SPEC #: [id number] RECD: 07/29/23 18:22 STATUS: ANTON MORALES #: [id number] DEB: 07/29/23 16:[address]: Gautam Calixto DEPT: SURGICAL PATHOLOGY RECD BY: Martha Siddiqui ENTERED: 07/30/23 07:36 SP TYPE: APPENDIX OTHR DR: Dr. Roberto Dowling MD Tissues: Appendix, NOS Procedures: Surgery Specimen Level III HEADER OPERATION: Laparoscopic appendectomy, possible cecostomy and drain placement PRE-OP DIAGNOSIS: Acute appendicitis TISSUE SUBMITTED: Appendix MICROSCOPIC DIAGNOSIS Appendix, appendectomy: Acute necrotizing appendicitis. Acute serositis. AM:diamond 08/02/2023 MICROSCOPIC DESCRIPTION Slides are reviewed. GROSS DESCRIPTION Received in fixative is one container labeled with the patient's name and designated appendix. The specimen consists of a C-shaped appendix measuring 7.0 cm in length and up to 0.7 cm in diameter. The attached periappendiceal adipose tissue measures up to 1.5 cm in width. The serosal surface is congested and hemorrhagic. A focal area suspicious for rupture is noted. The lumen contains hemorrhagic material. Sections of pericolonic adipose tissue also reveal congested and hemorrhagic cut surfaces. No fecalith is identified. [employer] Specialist sections are submitted in two cassettes. / SJ:diamond 07/30/2023 TC:2 CPT: 21441
[2023-07-29] MEDS: Lactated Ringers 1,000 ML 15 ML IV (16:30)
[2023-07-29] MEDS: Bupivacaine Mpf 0.5% 30 ML VIAL (17:58)
--- NOTE | 2023-07-29 18:02 | OP.PCM_ITS ---
Report of Operation Date of Procedure: 07/29/23 Pre-Operative Diagnosis: Acute appendicitis Post-Operative Diagnosis: Acute perforated appendicitis Surgery/Procedure Performed:: Laparoscopic appendectomy with drain placement Surgeon: Gautam Calixto automation developer: Lamont Willett automation developer: Yonis Correa Type of Anesthesia: General/Supplemental Anesthesiologist: Bud Gudino Specimen's removed: appendix Estimated Blood Loss (mL): 50 Description of Procedure: After appropriate identification in the preoperative holding area, the patient was brought to the operating room and placed supine on the operating room table. Antibiotics had been preoperatively administered. Patient was then induced with general endotracheal anesthetic. The abdomen was prepped and draped in usual sterile fashion. Formal timeout was conducted to confirm both the patient and the procedure. A supraumbilical incision was made and carried down to the level of the fascia which was sharply opened. After opening the peritoneum in like fashion a finger sweep was made to confirm position, and a balloon trocar was placed and pneumoperitoneum was established to 15 mmHg. Patient was positioned in Trendelenburg with the left side down. 2 additional 5 mm trocars were placed in the left lower quadrant and suprapubic positions. The peritoneum was inspected and there were no signs of inadvertent injury from this Siddiqui entry. The appendix was not immediately visualized due to significant inflammation involving the entirety of the cecum and the ascending colon causing adhesions to the anterior abdominal wall and lateral sidewall with the omentum as well. Inspecting in the far inferolateral quadrant of the abdomen identified some purulence adjacent to a perforated appendiceal base. Using blunt laparoscopic dissection I attempted to notch the appendix away from the lateral sidewall and this resulted in expression of purulence. This purulence was suctioned free of the peritoneum with a Luken's trap in line with the suction child care sitter device to obtain a peritoneal culture. I then reinspected the right lower quadrant to try to better delineate the anatomy. It was clear that the patient's terminal ileal fat pad was densely adherent to the base of the appendix and the mesoappendix. Not wanting to risk bleeding from the appendiceal artery I used the harmonic scalpel to try to divide several dense attachments to this fat pad and was able to establish some space between the structures. However as I tried to work from distal to proximal into the area of the appendiceal base I encountered increased friability within both the mesoappendix as well as the base where there were fragments of fecal matter at the opening to the perforation. Therefore I incised the white line of [place] with our harmonic scalpel and worked to bluntly mobilize the cecum and a lateral to medial orientation. As I returned to the area of the mesoappendix attempting to free it from the retroperitoneum to secure the appendiceal artery I instead inadvertently lacerated this vessel resulting in bleeding that was quickly addressed with application of cautery delivered via my energized [place] grasper. However, the severity of the inflammation in this area of the mesoappendix continued to limit any mobility and I became concerned about obtaining a clear path for a staple line to remove the specimen?especially if I was to avoid an open surgery given the patient's concurrent anticoagulation use. Therefore I requested the assistance of my partner Dr. Willett to the operating room. After his arrival we more fully mobilized the right colon from the lateral sidewall and better developed the window at the appendiceal base through the mesoappendix. This was partially facilitated by the placement of a fourth port (5 mm) in the left upper quadrant under laparoscopic visualization. While substantial inflammatory change remained about the cecum, the tissues here were softer and I felt confident about stapling the specimen so a Ethicon 60 mm [place] stapler was used to do just that?taking a very small portion of the lateral cecum as we did so. Unfortunately during this mobilization we, again, encountered bleeding from the appendiceal artery and following the stapling of the appendix this was again addressed with application of the harmonic scalpel until we had hemostasis. The appendix was placed in an Endo Catch bag and our staple line was inspected for hemostasis. After hemostasis was confirmed I attempted to identify some mobillity of the greater omentum that would reach down to our staple line to act as a buttress to this closure. Unfortunately despite attempts to mobilize the omentum further with the harmonic scalpel we were unable to have the omentum reach without tension so this attempt was abandoned. Prior to specimen extraction a 15 [place] round Da drain was fed in through our supraumbilical port site and brought out through our suprapubic port site for ongoing drainage. This drain was secured at the skin using a 2-0 nylon suture. The appendix was removed from the umbilical port site. Pneumoperitoneum was then evacuated and the supraumbilical port site fascia was closed with #1 Vicryl in a [id number] fashion. The port sites were infiltr ated with 30 mL local anesthetic. The skin of each port site was closed with 4- 0 Monocryl in a subcuticular fashion. Steri-Strips and OpSite dressings were applied. Patient tolerated procedure well without any apparent complications. They were awoken from general anesthetic without issue and transferred to post anesthesia care unit for ongoing recovery. Complications None Admit VTE Documentation VTE Mechan Device Prophylaxis: SCD's Procedures Digestive [id number]-49xxx: [id number] Laparoscopy appendectomy
[2023-07-29] MEDS: Acetaminophen 500 MG Tablet PO (20:22)
[2023-07-29] MEDS: HYDROmorphone 0.5 MG/0.5 ML SYRINGE IV (21:47)
[2023-07-29] MEDS: 0.9% Saline Lock 10 ML Syringe IV (21:47)
--- OUTSIDE RECORDS SUMMARY | 2023-07-30 02:30 | XMS RPT_ITS ---
Author Name Auto Generated Organization OHIP Care Team Providers Care Certified Alcohol Drug Counselor Name Role Phone CORIN FATIMA Attending Unavailable ANCELMO BEE Primary Care Unavailable ANCELMO BEE Primary Care Unavailable ANCELMO BEE Referring Unavailable CHEN TALBERT Attending Unavailable ANCELMO BEE Primary Care Unavailable SELF, SELF Referring Unavailable GALI, CHEN G Attending Unavailable TOMANCELMO WALDRON Primary Care Unavailable SELF, SELF Referring Unavailable GALI, CHEN G Attending Unavailable ANCELMO BEE Primary Care Unavailable SELF, SELF Referring Unavailable GALI, CHEN G Attending Unavailable PROBLEMS DATE TYPE CONDITION / CODE ATTENDING STATUS [facility] 07/13/2023 Admitting diagnosis Follow-up / 145() CHEN TALBERT G Active [facility] 08/06/2022 Admitting Diagnosis Acute embolism and thrombosis of left femoral vein (HCC) / I82.412(ICD-10) CORIN FATIMA Active [facility] 08/06/2022 Admitting Diagnosis Other pulmonary embolism with acute cor pulmonale (HCC) / I26.09(ICD-10) CORIN FATIMA Active [facility] 08/06/2022 Admitting Diagnosis Paroxysmal atrial fibrillation (HCC) / I48.0(ICD-10) CORIN FATIMA Active [facility] 02/05/2021 Admitting diagnosis 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-10) CHEN TALBERT Active [facility] PROCEDURES No Procedure Records Found RESULTS 36 Observed: 05/21/2023 9:16 AM Status: COMP LETED Source: [facility] REPOSITORY OV 01/27/23 PROGRESS NOTE Observed: 01/27/2023 10:20 AM Status: COMPLETED Source: [facility] REPOSITORY [facility] Cardiology Note DATE of SERVICE: 01/27/2023 DATE of : 1960 PRIMARY CARE PHYSICIAN: Ancelmo Bee MD Chief Complaint: Chief Complaint Patient presents with Annual Exam Unprovoked DVT/PE 11/2021 History of Present Illness: Davis Ferreira is a 62 y.o. male with unprovoked submassive bilateral PE and left leg DVT from November 2021 (and prior DVT in 2019) here for follow-up. He had presented to [facility] with 1 to 2-week history of worsening shortness of breath and November 2021 and was found to have extensive left leg DVT with large bilateral proximal pulmonary emboli with RV strain. He was anticoagulated and underwent successful percutaneous pulmonary thrombectomy with Inari FlowTriever and has done very well on anticoagulation. No DVT treatment needed. He was initially anticoagulated with Eliquis twice daily, but was switched to Xarelto a few months ago by primary care. However he is currently only receiving Xarelto 10 mg daily. He had also been evaluated by [facility] hematology last year with no evidence of hypercoagulable state, and lifelong anticoagulation was advised at that time as well. He had some transient atrial fibrillation at the time of his PE, but quickly converted back to sinus rhythm and has remained sinus since that time. LVEF is normal, and RV size and systolic function returned to normal on follow-up echo. No pulmonary hypertension. Former smoker, but he remains abstinent. No bleeding or bruising. No chest pain or shortness of breath. No peripheral edema. He has continued to deal with some issues with depression and anxiety. He remains on low-dose beta-berna with Toprol 12.5 mg daily but heart rate remains low in the 40s. Past Medical History: Past Medical History: Diagnosis Date Current use of terminal block assembler anticoagulation DVT (deep venous thrombosis) (HCC) 2019 Pulmonary emboli ([facility]) 11/2021 Past Surgical History Past Surgical History: Procedure Laterality Date THROMBECTOMY Family History Family History Problem Relation Name Age of Onset No Known Problems Mother No Known Problems Father Social History Social History Tobacco Use Smoking status: Former Smokeless tobacco: Never Allergies: No Known Allergies Medications: Current Outpatient Medications: amLODIPine (Norvasc) 5 MG tablet, Take 1 tablet by mouth daily., Disp: , Rfl: hydrOXYzine pamoate (Vistaril) 25 MG capsule, as needed., Disp: , Rfl: LORazepam (Ativan) 0.5 MG tablet, Take 0.5 mg by mouth every 6 hours as needed., Disp: , Rfl: traZODone (Desyrel) 50 MG tablet, , Disp: , Rfl: DULoxetine (Cymbalta) [address] capsule, Take 30 mg by mouth every evening., Disp: , Rfl: DULoxetine (Cymbalta) [address] capsule, Take 60 mg by mouth every morning., Disp: , Rfl: Humira Pen 40 MG/0.4ML Pen-injector Kit pen-injector, , Disp: , Rfl: rivaroxaban (Xarelto) 20 MG tablet, Take 1 tablet (20 mg) by mouth with evening meal. Take with food., Disp: 90 tablet, Rfl: 3 tamsulosin (Flomax) 0.4 MG 24 hr capsule, Take 0.4 mg by mouth daily., Disp: , Rfl: Review of Systems: Review of Systems Constitutional: Negative for activity change, chills, diaphoresis, fatigue and fever. HENT: Negative for nosebleeds and trouble swallowing. Eyes: Negative for discharge and visual disturbance. Respiratory: Negative for apnea, cough, chest tightness, shortness of breath and wheezing. Cardiovascular: Negative for chest pain, palpitations and leg swelling. Gastrointestinal: Negative for abdominal distention, abdominal pain, blood in stool, diarrhea, nausea and vomiting. Endocrine: Negative for cold intolerance and heat intolerance. Genitourinary: Negative for hematuria. Musculoskeletal: Negative for gait problem and myalgias. Skin: Negative for color change and rash. Neurological: Negative for dizziness, seizures, syncope, facial asymmetry, speech difficulty, weakness, light-headedness, numbness and headaches. Hematological: Does not bruise/bleed easily. Psychiatric/Behavioral: Negative for dysphoric mood. Physical Examination: Vitals: Vitals: 01/27/23 1027 BP: 136/74 Pulse: (!) 43 Weight: 206 lb 6.4 oz (93.6 kg) Height: 5' 10.5 (1.791 m) Body mass index is 29.2 kg/m?. Physical Exam Constitutional: General: He is not in acute distress. Appearance: He is not toxic-appearing. HENT: Head: Normocephalic and atraumatic. Eyes: General: No scleral icterus. Extraocular Movements: Extraocular movements intact. Pupils: Pupils are equal, round, and reactive to light. Neck: Vascular: No carotid bruit. Cardiovascular: Rate and Rhythm: Regular rhythm. Bradycardia present. Pulses: Normal pulses. Heart sounds: Normal heart sounds. No murmur heard. No friction rub. No gallop. Pulmonary: Effort: Pulmonary effort is normal. No respiratory distress. Breath sounds: Normal breath sounds. No wheezing, rhonchi or rales. Abdominal: General: Bowel sounds are normal. There is no distension. Palpations: Abdomen is soft. Tenderness: There is no abdominal tenderness. Musculoskeletal: Right lower leg: No edema. Left lower leg: No edema. Lymphadenopathy: Cervical: No cervical adenopathy. Skin: General: Skin is warm and dry. Capillary Refill: Capillary refill takes less than 2 seconds. Findings: No bruising or lesion. Neurological: General: No focal deficit present. Mental Status: He is alert and oriented to person, place, and time. Motor: No weakness. Psychiatric: Mood and Affect: Mood normal. Laboratory Tests: Lab Results Component Value Date WBC 11.6 (H) 12/18/2021 HGB 9.3 (L) 12/18/2021 EXTHCT 28.9 (L) 12/18/2021 MCV 89.5 12/18/2021 EXTPLT 218 12/18/2021 Lab Results Component Value Date NA 138 12/18/2021 K 3.8 12/18/2021 CL 112 (H) 12/18/2021 CO2 24 12/18/2021 BUN 22 (H) 12/18/2021 CREATININE 1.04 12/18/2021 GLUCOSE 105 (H) 12/18/2021 CALCIUM 8.2 (L) 12/18/2021 PROT 5.5 (L) 12/18/2021 BILITOT 0.5 12/18/2021 ALKPHOS 182 (H) 12/18/2021 AST 82 (H) 12/18/2021 Lab Results Component Value Date CREATININE 1.04 12/18/2021 CREATININE 0.95 12/17/2021 CREATININE 1.12 12/16/2021 Lab Results Component Value Date CHOL 103 12/18/2021 Lab Results Component Value Date TRIG 94 12/18/2021 Lab Results Component Value Date HDL 23 (L) 12/18/2021 Lab Results Component Value Date LDL 61 12/18/2021 Lab Results Component Value Date TROPONINI 0.099 (H) 12/17/2021 TROPONINI 0.122 (H) 12/16/2021 TROPONINI 0.126 (H) 12/16/2021 Cardiac Tests: ECG 01/27/23 personally reviewed and shows: Sinus bradycardia 43 bpm. Otherwise normal EKG. No ischemic changes or prior infarct Lower extremity duplex: 12/16/2021 Conclusions 1. Acute deep vein thrombosis noted in the left femoral vein, left popliteal vein, left peroneal veins, and left soleal vein. 2. There is no evidence of acute deep or superficial venous thrombosis noted in the right lower extremity. Prior Echo: 12/16/2021 SUMMARY: 1. Right ventricle: The cavity size is severely dilated. Systolic function is severely decreased. Right ventricular systolic pressure is moderately increased. The RV pressure during systole by Doppler is 46 mm Hg. 2. Ventricular septum: There is systolic flattening. These changes are consistent with RV pressure overload. 3. No significant valve disease. Last Echo 01/26/2022: SUMMARY: 1. Left ventricle: Average LV global longitudinal strain is -15. Systolic function is normal by the biplane method of disks. The estimated ejection fraction is 53%. 2. Right ventricle: The cavity size is normal. Systolic function is normal. Right ventricular systolic pressure is within the normal range. 3. Aortic valve: The peak systolic gradient is 6 mm Hg. Last pulmonary thrombectomy: 12/16/2021 SUMMARY: 61yo male smoker with 1-2wk history of dyspnea and left left swelling, found to have unprovoked extensive left leg DVT and submassive bilateral pulmonary emboli with RV strain by imaging and labs, and ongoing hypoxia despite O2 and anticoagulation. Patient referred for percutaneous pulmonary artery thrombectomy. IMPRESSIONS: 1. Succesful bilateral pulmonary artery thrombectomy with Inari FlowTriever with extensive aspiration of both acute and chronic thrombus. 2. Severe pulmonary hypertension, 65/35 initially, reduced to 57/25 after thrombectomy. [id number] Score for Atrial Fibrillation Stroke Risk Risk Factors C CHF No, 0 H HTN No, 0 A2 Age >= 75 No, 0 D DM No, 0 S2 Prior Stroke/TIA No, 0 V Vascular Disease No, 0 A Age 65-74 No, 0 Sc Sex Male, 0 [id number] Score 0 Calculator: [id number] risk stratification score for estimation of stroke risk for nonvalvular atrial fibrillation in adults - UpToDate Atrial fibrillation in adults: Use of oral anticoagulants - UpToDate Assessment and Plan: 1. Other acute pulmonary embolism with acute cor pulmonale (HCC) -Submassive bilateral pulmonary emboli with left leg DVT in 2021. Recurrent event. Unprovoked. -Recommend lifelong anticoagulation with full dose therapy. Increase Xarelto to 20 mg daily. Review outpatient blood work from PCP - rivaroxaban (Xarelto) 20 MG tablet; Take 1 tablet (20 mg) by mouth with evening meal. Take with food., Starting Wed01/27/2023, Normal 2. Acute deep vein thrombosis (DVT) of femoral vein of left lower extremity (HCC) -As above. Continue Xarelto at higher dose of 20 mg daily - ECG 12 lead - CLINIC PERFORMED - rivaroxaban (Xarelto) 20 MG tablet; Take 1 tablet (20 mg) by mouth with evening meal. Take with food., Starting 01/27/2023, Normal 3. Paroxysmal atrial fibrillation (CMS/HCC) ([facility]) -Brief episode of A-fib in the setting of bilateral PE. Resolved in hospital and has remained in sinus rhythm. Anticoagulation on the basis of DVT PE. Okay to stop beta-berna - rivaroxaban (Xarelto) 20 MG tablet; Take 1 tablet (20 mg) by mouth with evening meal. Take with food., Starting Wed01/27/2023, Normal 4. Sinus bradycardia -Recommend stopping Toprol altogether. Follow Up: Patient to follow-up in 1 year unless new cardiovascular issues arise. Please call with any questions. Corin E Azra, MD, [facility], [facility] Interventional Cardiology OFFICE VISIT Observed: 01/27/2023 10:20 AM Status: COMPLETED Source: [facility] REPOSITORY [id number] Davis Ferreira 1959 M Date Provider Department Center 01/27/2023 [id number]-DMXCORIN FATIMA [facility] LAXMI SHMGCV 95 Ar Family History Problem Relation Age of Onset No Known Problems Mother No Known Problems Father Family Status - Relation Status Age at Mother Father Level of Service:03665 CO OFFICE/OUTPATIENT ESTABLISHED MOD MDM 30-39 MIN Reason for Visit and Comments: Annual Exam [83] - Unprovoked DVT/PE 11/2021 ALLERGIES No Allergies Records Found ENCOUNTERS ADMIT/DISCHARGE ACCOUNT NUMBER ADMITTING ENCOUNTER CLASS LOCATION SOURCE 07/13/2023 [id number] [facility] ng:[id number] [facility] 02/16/2023 [id number] [facility] ng:K8TCREBECCA [facility] 01/27/2023/01/28/20 [id number] Ambulatory Buildin 1179 [facility] 12/01/2022 [id number] [facility] ng:K8TCRS [facility] 08/19/2022 [id number] [facility] ng:K8TCRS [facility] PAYERS ENCOUNTER GUARANTOR PAYER SUBSCRIBER SOURCE 07/13/2023 DAVIS DAVIS: [place], [place] [address]Ysq: () Primary Insurance:[facility] MEDICAID COMMUNITY PLANPolicy Number: [id number] Date:8025-42-39Sygr Name:HENNY DAVIS DAVIS: [id number] [place], [place] [address]Zqw: (HP) [facility] 02/16/2023 DAVIS DAVIS: [place], [place] [address]Xht: (HP) Primary Insurance:[facility] MEDICAID COMMUNITY PLANPolicy Number: [id number] Date:6480-70-18Skov Name:HENNY DAVIS: [id number] [place], [place] [address]Fii: (HP) [facility] 01/27/2023 Primary Insurance:[facility] MEDICAIDPolicy Number: [id number] Date:1297-01-45Czry Name:Medicaid O DAVIS GRUBERNORMANOB: [id number] [place] [address] [facility] 12/01/2022 DAVIS GRUBERNORMANOB: [place], [place] [address]Wjo: (HP) Primary Insurance:[facility] MEDICAID COMMUNITY PLANPolicy Number: [id number] Date:6285-65-07Omhg Name:HENNY BUSHOB: [id number] [place], [place] [address]Mls: (HP) [facility] 08/19/2022 DAVIS BUSHOB: [place], [place] [address]Onr: (HP) Primary Insurance:[facility] MEDICAID COMMUNITY PLANPolicy Number: [id number] Date:5646-17-84Kpwf Name:HENNY BUSHOB: [id number] [place], [place] [address]Dfx: (HP) [facility]
--- OUTSIDE RECORDS SUMMARY | 2023-07-30 03:14 | XMS RPT_ITS ---
Author Name Auto Generated Organization OHIP Care Team Providers Care Oil And Gas Exploration Technician Name Role Phone ANCELMO BEE Primary Care Unavailable ANCELMO BEE Referring Unavailable CHEN TALBERT Attending Unavailable ANCELMO BEE Primary Care Unavailable SELF, SELF Referring Unavailable CHEN TALBERT Attending Unavailable ANCELMO BEE Primary Care Unavailable SELF, SELF Referring Unavailable CHEN TALBERT Attending Unavailable ANCELMO BEE Primary Care Unavailable SELF, SELF Referring Unavailable GALI CHEN G Attending Unavailable CORIN FATIMA Attending Unavailable ANCELMO BEE Primary Care Unavailable PROBLEMS DATE TYPE CONDITION / CODE ATTENDING STATUS [facility] 07/13/2023 Admitting diagnosis Follow-up / 145() GALI CHEN G Active [facility] 08/06/2022 Admitting Diagnosis Acute embolism and thrombosis of left femoral vein (HCC) / I82.412(ICD-10) CORIN FATIMA Active [facility] 08/06/2022 Admitting Diagnosis Other pulmonary embolism with acute cor pulmonale (HCC) / I26.09(ICD-10) CORIN FATIMA Active [facility] 08/06/2022 Admitting Diagnosis Paroxysmal atrial fibrillation (HCC) / I48.0(ICD-10) CORIN FATIMA Active [facility] 02/05/2021 Admitting diagnosis 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-10) CHEN TALBERT Active [facility] PROCEDURES No Procedure Records Found RESULTS 36 Observed: 05/21/2023 9:16 AM Status: COMP LETED Source: [facility] REPOSITORY OV 01/27/23 PROGRESS NOTE Observed: 01/27/2023 10:20 AM Status: COMPLETED Source: [facility] REPOSITORY [facility] Cardiovascular Group Cardiology Note DATE of SERVICE: 01/27/2023 DATE of : 1960 PRIMARY CARE PHYSICIAN: Ancelmo Bee MD Chief Complaint: Chief Complaint Patient presents with Annual Exam Unprovoked DVT/PE 11/2021 History of Present Illness: Lesa Ferreira is a 62 y.o. male with unprovoked submassive bilateral PE and left leg DVT from November 2021 (and prior DVT in 2019) here for follow-up. He had presented to [facility] with 1 to 2-week history of worsening [...] daily. He had also been evaluated by [facility] hematology last year with no evidence of [...] Medical History: Diagnosis Date Current use of termite control service representative anticoagulation DVT (deep venous thrombosis) (HCC) 2019 Pulmonary emboli ([facility]) 11/2021 Past Surgical History Past Surgical History: [...] 65/35 initially, reduced to 57/25 after thrombectomy. [id number] Score for Atrial Fibrillation Stroke Risk Risk Factors C CHF No, 0 H HTN No, 0 A2 Age >= 75 No, 0 D DM No, 0 S2 Prior Stroke/TIA No, 0 V Vascular Disease No, 0 A Age 65-74 No, 0 Sc Sex Male, 0 [id number] Score 0 Calculator: [id number] risk stratification score for estimation of stroke [...] 01/27/2023, Normal 3. Paroxysmal atrial fibrillation (CMS/HCC) ([facility]) -Brief episode of A-fib in the setting [...] with any questions. Corin E Azra, MD, [facility], [facility] Interventional Cardiology OFFICE VISIT Observed: 01/27/2023 10:20 AM Status: COMPLETED Source: [facility] REPOSITORY [id number] Lesa Ferreira 1959 M Date Provider Department Center 01/27/2023 80426-QXNCORIN FATIMA [facility] LAXMI SHMGCV 95 Ar Family History Problem Relation Age of Onset No Known Problems Mother No Known Problems Father Family Status - Relation Status Age at Mother Father Level of Service:29435 GA OFFICE/OUTPATIENT ESTABLISHED MOD MDM 30-39 MIN Reason for Visit and Comments: Annual Exam [83] - Unprovoked DVT/PE 11/2021 ALLERGIES No Allergies Records Found ENCOUNTERS ADMIT/DISCHARGE ACCOUNT NUMBER ADMITTING ENCOUNTER CLASS LOCATION SOURCE 07/13/2023 [id number] [facility] ng:K8TCRS [facility] 02/16/2023 [id number] [facility] ng:K8TCREBECCA [facility] 01/27/2023/01/28/20 [id number] Ambulatory Buildin 1179 [facility] 12/01/2022 [id number] [facility] ng:K8TCRS [facility] 08/19/2022 [id number] [facility] ng:K8TCRS [facility] PAYERS ENCOUNTER GUARANTOR PAYER SUBSCRIBER SOURCE 07/13/2023 LESA DAVIS: [place], [place] [address]Trl: () Primary Insurance:[facility] MEDICAID COMMUNITY PLANPolicy Number: [id number] Date:6494-24-57Evdr Name:HENNY LESA DAVIS: [id number] [place], [place] [address]Otg: (HP) [facility] 02/16/2023 LESA DAVIS: [place], [place] [address]Nkp: (HP) Primary Insurance:[facility] MEDICAID COMMUNITY PLANPolicy Number: [id number] Date:0764-51-55Rnke Name:HENNY DAVIS: [id number] [place], [place] [address]Lno: (HP) [facility] 01/27/2023 Primary Insurance:[facility] MEDICAIDPolicy Number: [id number] Date:3639-39-79Rtus Name:Medicaid O LESA GRUBERNORMANOB: [id number] [place] [address] [facility] 12/01/2022 LESA GRUBERNORMANOB: [place], [place] [address]Jfy: (HP) Primary Insurance:[facility] MEDICAID COMMUNITY PLANPolicy Number: [id number] Date:6819-04-75Toub Name:HENNY BUSHOB: [id number] [place], [place] [address]Ioo: (HP) [facility] 08/19/2022 LESA BUSHOB: [place], [place] [address]Aou: (HP) Primary Insurance:[facility] MEDICAID COMMUNITY PLANPolicy Number: [id number] Date:4572-39-26Jtai Name:HENNY BUSHOB: [id number] [place], [place] [address]Sre: (HP) [facility]
--- OUTSIDE RECORDS SUMMARY | 2023-07-30 03:36 | XMS RPT_ITS ---
Author Name Auto Generated Organization OHIP Care Team Providers Care Health Screener Name Role Phone CORIN FATIMA Attending Unavailable [...] TYPE CONDITION / CODE ATTENDING STATUS [facility] 07/13/2023 Admitting diagnosis Follow-up / 145() CHEN TALBERT G Active [facility] 08/06/2022 Admitting Diagnosis Acute embolism and thrombosis of left femoral vein (HCC) / I82.412(ICD-10) CORIN FATIMA Active [facility] 08/06/2022 Admitting Diagnosis Other pulmonary embolism with acute cor pulmonale (HCC) / I26.09(ICD-10) CORIN FATIMA Active [facility] 08/06/2022 Admitting Diagnosis Paroxysmal atrial fibrillation (HCC) / I48.0(ICD-10) CORIN FATIMA Active [facility] 02/05/2021 Admitting diagnosis 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-10) CHEN TALBERT Active [facility] PROCEDURES No Procedure Records Found RESULTS 36 Observed: 05/21/2023 9:16 AM Status: COMP LETED Source: [facility] REPOSITORY OV 01/27/23 PROGRESS NOTE Observed: 01/27/2023 10:20 AM Status: COMPLETED Source: [facility] REPOSITORY [facility] Cardiology Note DATE [...] here for follow-up. He had presented to [facility] with 1 to 2-week history of [...] daily. He had also been evaluated by [facility] hematology last year with no evidence of [...] (deep venous thrombosis) (HCC) 2019 Pulmonary emboli ([facility]) 11/2021 Past Surgical History Past Surgical History: [...] 65/35 initially, reduced to 57/25 after thrombectomy. [id number] Score for Atrial Fibrillation Stroke Risk Risk Factors C CHF No, 0 H HTN No, 0 A2 Age >= 75 No, 0 D DM No, 0 S2 Prior Stroke/TIA No, 0 V Vascular Disease No, 0 A Age 65-74 No, 0 Sc Sex Male, 0 [id number] Score 0 Calculator: [id number] risk stratification score for estimation of stroke [...] 01/27/2023, Normal 3. Paroxysmal atrial fibrillation (CMS/HCC) ([facility]) -Brief episode of A-fib in the setting [...] with any questions. Corin E Azra, MD, [facility] Interventional Cardiology OFFICE VISIT Observed: 01/27/2023 10:20 AM Status: COMPLETED Source: [facility] REPOSITORY [id number] Davis Ferreira 1959 M Date Provider Department Center 01/27/2023 02588-RSNCORIN FATIMA [facility] LAXMI SHM[facility]V 95 Ar Family History Problem Relation Age of Onset No Known Problems Mother No Known Problems Father Family Status - Relation Status Age at Mother Father Level of Service:84646 NE OFFICE/OUTPATIENT ESTABLISHED MOD MDM 30-39 MIN Reason for Visit and Comments: Annual Exam [83] - Unprovoked DVT/PE 11/2021 ALLERGIES No Allergies Records Found ENCOUNTERS ADMIT/DISCHARGE ACCOUNT NUMBER ADMITTING ENCOUNTER CLASS LOCATION SOURCE 07/13/[id number] [facility] ng:[id number] [facility] 02/16/[id number] [facility] ng:[id number] [facility] 01/27/2023/01/28/20 [id number] Ambulatory Buildin 1179 [facility] 12/01/[id number] [facility] ng:[id number] [facility] 08/19/[id number] [facility] ng:[id number] [facility] PAYERS ENCOUNTER GUARANTOR PAYER SUBSCRIBER SOURCE 07/13/2023 DAVIS DAVIS: [place], [place] [address]Tlw: () Primary Insurance:[facility] MEDICAID COMMUNITY PLANPolicy Number: [id number] Date:1357-86-11Pbog Name:HENNY DAVIS DAVIS: [id number] [place], [place] [address]Qhl: (HP) [facility] 02/16/2023 DAVIS DAVIS: [place], [place] [address]Fja: (HP) Primary Insurance:[facility] MEDICAID COMMUNITY PLANPolicy Number: [id number] Date:7627-22-11Hppf Name:HENNY DAVIS: [id number] [place], [place] [address]Gnh: (HP) [facility] 01/27/2023 Primary Insurance:[facility] MEDICAIDPolicy Number: [id number] Date:0604-15-09Vjru Name:Medicaid O DAVIS GRUBERNORMANOB: [id number] [place] [address] [facility] 12/01/2022 DAVIS GRUBERNORMANOB: [place], [place] [address]Jla: (HP) Primary Insurance:[facility] MEDICAID COMMUNITY PLANPolicy Number: [id number] Date:4723-75-87Qgrx Name:HENNY BUSHOB: [id number] [place], [place] [address]Sel: (HP) [facility] 08/19/2022 DAVIS BUSHOB: [place], [place] [address]Sid: (HP) Primary Insurance:[facility] MEDICAID COMMUNITY PLANPolicy Number: [id number] Date:8160-10-87Cycf Name:HENNY BUSHOB: [id number] [place], [place] [address]Gma: (HP) [facility]
[2023-07-30] MEDS: 0.9% Normal Saline (1000mL) 1,000 ML 125 ML IV ×3 (04:23→20:29)
[2023-07-30 05:31] VITALS: BP 129/77; PULSE 83; RESP 20; TEMP 36.7; O2SAT 96
[2023-07-30] MEDS: Acetaminophen 500 MG Tablet PO ×2 (05:35→21:12)
[2023-07-30] MEDS: Piperacil/Tazobactam 3.375 GM in 0.9% Normal Saline (50mL MB+) 50 ML IV ×3 (05:35→21:10)
[2023-07-30] MEDS: HYDROmorphone 0.5 MG/0.5 ML SYRINGE IV ×3 (06:05→19:23)
[2023-07-30] MEDS: 0.9% Saline Lock 10 ML Syringe IV ×2 (06:05→12:46)
[2023-07-30 06:48] LABS: Absolute Lymphocyte Count 0.84 X10^3/uL (0.83-4.51); Absolute Neutrophil Count 18.9 X10^3/uL (2.0-7.7); Basophil# 0.04 X10^3/uL; Basophil% 0.2 % (0-1); Hematocrit 37.6 % (40-54); Hemoglobin 11.8 g/dL (13.0-16.5); Lymphocyte # 0.84 X10^3/ul (0.83-4.51); Lymphocyte % 3.9 % (19-41); Mean Corp Hgb Conc 31.4 g/dL (32-36); Mean Corpuscular Hgb 28.7 pg (27.0-32.0); Mean Corpuscular Volume 91.5 fL (80-94); Mean Platelet Vol. 10.5 fl (6.2-12.0); Monocyte# 1.44 X10^3/uL; Monocyte% 6.7 % (0-10); NRBC Flagged by Analyzer 0 % (0-5); Neutrophil # 18.92 X10^3/uL (2.7-7.7); Neutrophil % 87.8 % (47-70); Platelet Count 150 K/mm3 (150-450); RBC Distribution Width CV 15.2 % (11.6-14.6); RBC Distribution Width SD 51.1 fl (35.1-43.9); Red Blood Count 4.11 M/mm3 (4.6-6.2); White Blood Count 21.5 K/mm3 (4.4-11.0)
[2023-07-30 07:06] LABS: Anion Gap 3 (5-15); BUN 15 mg/dL (7-18); BUN/Creat Ratio 12.5 RATIO (10-20); Chloride 110 mmol/L (98-107); EST Glomerular Filtration Rate 65 mL/min (>60); Est Glom Filt Rate - Afr Amer 79 mL/min (>60); Estimated Creatinine Clearance 68.85 ml/min; Glucose 159 mg/dL (74-106); Magnesium 2.1 mg/dL (1.6-2.6); Phosphorus 2.2 mg/dL (2.5-4.9); Potassium 4.1 mmol/L (3.5-5.1); Sodium Level 138 mmol/L (136-145)
[2023-07-30 08:00] VITALS: BP 113/69; PULSE 74; RESP 18; TEMP 36.3; O2SAT 98
--- NOTE | 2023-07-30 08:02 | PN.SURG_ITS ---
Subjective Subjective Seen and examined during AM rounds. He reports that he is feeling better in his right lower quadrant but had some persistent soreness about his drain site. Nursing had notified me earlier in the morning that patient had some urinary retention that required straight catheterization. Patient expressed relief about being through surgery. Objective Data Objective Data Vital Signs: Vital Signs Temp Pulse Resp BP Pulse Ox O2 Del Method O2 Flow Rate 98.1 F 83 20 H 129/77 H 96 Room Air 2 07/30/23 05:31 07/30/23 05:31 07/30/23 05:31 07/30/23 05:31 07/30/23 05:31 07/30/23 05:31 07/29/23 18:44 Oxygen Flow Rate (L/min) 2 Oxygen Delivery Method Room Air Weight: 206 lb 2.115 oz Body Mass Index (BMI) 28.7 Intake & Output: Intake and Output for Last 24 Hours 07/28/23 07/29/23 07/30/23 23:59 23:59 23:59 Intake Total 1750 / 1850 1200 / 1200 Output Total 40 / 40 760 / 760 Balance 1710 / 1810 440 / 440 Lab / Micro Data 07/30/23 06:40 07/30/23 06:40 Labs: Laboratory Results - last 24 hr 07/29/23 10:44: WBC 23.0 H, RBC 4.88, Hgb 14.0, Hct 43.5, MCV 89.1, MCH 28.7, MCHC 32.2, RDW Std Deviation 49.7 H, RDW Coeff of Tone 15.1 H, Plt Count 161, MPV 10.3, Immature Gran % (Auto) 0.800, Neut % (Auto) 84.5 H, Lymph % (Auto) 6.5 L, [place] % (Auto) 7.9, Eos % (Auto) 0.0, Baso % (Auto) 0.3, Absolute Neuts (auto) 19.4 H, Absolute Lymphs (auto) 1.50, Nucleated RBC % 0, Differential Comment SCANNED, Diff Path Review February, Sodium 133 L, Potassium 3.9, Chloride 104, Carbon Dioxide 24.0, Anion Gap 5, BUN 13, Creatinine 1.39 H, Estim Creat Clear Calc 59.44, Est GFR (MDRD) Af Amer 67, Est GFR (MDRD) Non-Af 55 L, BUN/Creatinine Ratio 9.4 L, Glucose 144 H, Calcium 8.8, Total Bilirubin 1.20 H, Direct Bilirubin 0.42 H, AST 25, ALT 38, Alkaline Phosphatase 109, Total Protein 7.6, Albumin 3.4, Globulin 4.2, Lipase 18 07/29/23 11:38: Urine Color Yellow, Urine Clarity Clear, Urine pH 5.0, Ur Specif ic [place] 1.015, Urine Protein 30 H, Urine Glucose (UA) Normal, Urine Ketones 5 H, Urine Occult Blood 10 H, Urine Nitrite Negative, Urine Bilirubin Negative, Urine Urobilinogen Normal, Ur Leukocyte Esterase 25 H, Urine RBC 0 SEEN, Urine WBC 0-5 SEEN, Ur Squamous Epith Cells 0 SEEN, Urine Bacteria 0 SEEN, Urine Mucus 0 SEEN 07/29/23 12:05: PT Cancelled, INR Cancelled, APTT Cancelled 07/29/23 13:35: PT 16.3 H, INR 1.3, APTT 36.6 H 07/30/23 06:40: WBC 21.5 H, RBC 4.11 L, Hgb 11.8 L, Hct 37.6 L, MCV 91.5, MCH 28.7, MCHC 31.4 L, RDW Std Deviation 51.1 H, RDW Coeff of Tone 15.2 H, Plt Count 150, MPV 10.5, Immature Gran % (Auto) 1.400 H, Neut % (Auto) 87.8 H, Lymph % (Auto) 3.9 L, [place] % (Auto) 6.7, Eos % (Auto) 0.0, Baso % (Auto) 0.2, Absolute Neuts (auto) 18.9 H, Absolute Lymphs (auto) 0.84, Nucleated RBC % 0, Sodium 138, Potassium 4.1, Chloride 110 H, Carbon Dioxide 25.0, Anion Gap 3 L, BUN 15, Creatinine 1.20, Estim Creat Clear Calc 68.85, Est GFR (MDRD) Af Amer 79, Est GFR (MDRD) Non-Af 65, BUN/Creatinine Ratio 12.5, Glucose 159 H, Calcium 8.0 L, Phosphorus 2.2 L, Magnesium 2.1 Radiography Diagnostic Testing: Radiology Impression Abdomen/Pelvis CT 07/29/23 10:35 IMPRESSION: Inflammatory changes in the right lower quadrant in keeping with acute appendicitis. Fatty infiltration of the liver. Electronically Signed: Nito Daniels MD at 12:02 EDT , Physical Exam Const oriented x3 and no apparent distress Resp normal respiratory effort GI GI Narrative: Minimally distended, soft, appropriately tender to palpation about port sites. Suprapubic drain site with some thin serosanguineous output Assessment & Plan Assessment/Plan (1) Acute perforated appendicitis: PLAN: This is a 63-year-old male who is postoperative day 1 from laparoscopic appendectomy with drain placement for intraoperative confirmation of perforated appendicitis with localized abscess formation and contamination with feculent matter. This morning he has improved for his abdominal discomfort and has shown some improvements in his CBC with a decrease in his leukocytosis from 23,000- 21,000 this morning. Given his use of Xarelto within the past 48 hours, his hemoglobin was also closely scrutinized and was registered at 11.8 from 14 on intake. This is a multifactorial drop?both with intraoperative losses as well as institution of IV fluids. Given the degree of contamination at his operation, I have withheld any significant diet cleared patient for sips and chips today. ? Ambulate as tolerated ? Strict I's and O's on drain ? Trend CBC ? Await signs of return of bowel function ? Continue empiric IV antibiotic coverage and monitor peritoneal cultures from operation Charges/Coding Visit Charges Inpatient E&M: 80003 Subs Hosp L2
[2023-07-30] MEDS: Pantoprazole Sodium 40 MG in 0.9% Normal Saline (100mL MB+) 100 ML 330 MG IV (10:44)
--- NOTE | 2023-07-30 15:14 | CASEMGMT ---
LUBNA GUADARRAMA in to patient room for first attempt at initial assessment. Patient was laying in bed and talking on the phone. He paused and I introduced myself and asked if he needed me to come back at another time. Patient confirmed that he did need me to come back at a later time. LUBNA GUADARRAMA will follow-up for future attempts at initial assessment. Jeannie BENITEZ, RN, CM
--- NOTE | 2023-07-30 15:45 | CASEMGMT ---
LUBNA GUADARRAMA Assessment: Face to Face with pt for initial transition planning/care coordination assessment. Patient is laying in bed with his girlfriend, Kathleen, at the bedside (per patient's permission). LUBNA GUADARRAMA introduced self and role at [facility], pt voices understanding and consents to assessment. Pt is A&O x4 and answers all questions appropriately at this time. Care providers, pharmacy, and demographics verified/updated. Admitting Dx:Acute Appendicitis PCP: Josey Specialists: Paula (Telephone Information Supervisor), Wilson Ortiz (dermatology - pt. unsure of name) Preferred Pharmacy: [facility]) Insurance:[facility] Community Plan Prescription Benefit: yes LNOK: Katey Ferreira (Brother) Living Will/HCPOA: No and No. Informed patient that he can establish those documents during his stay if he would like and to inform a SW if he decides he would like to. Patient voices understanding. Living Arrangements: Pt lives alone in a [address] apartment with 2 steps (no railing to enter). Pt. does not report any difficulty with ambulating these two stairs. Pt. is independent in all ADLs and IADLs. Transportation: Pt drives self. States his girlfriend can assist with driving if needed. DME: shower chair, raised toilet seat, grab bars, hand held shower, and BP cuff. Denies need for additional DME. HHC/SNF: Denies any previous SNF or HHC. Pt states no concerns with going home at time of dc. Pt states no further concerns/needs. CM to follow. Advised pt to ask CM if any further question/concerns/needs arise, voices understanding. Pt Goal: Home Plan: Patient to discharge home with follow-up plans in place. LUBNA GUADARRAMA will continue to follow and plan for a safe discharge. Jeannie BENITEZ, RN, CM
[2023-07-30 16:00] VITALS: BP 119/61; PULSE 59; RESP 18; TEMP 37.2; O2SAT 98
[2023-07-30 16:30] VITALS: O2SAT 94
[2023-07-30 21:04] VITALS: BP 127/78; PULSE 61; RESP 18; TEMP 36.5; O2SAT 95
[2023-07-31 02:21] VITALS: BP 151/64; PULSE 66; RESP 18; TEMP 36.7; O2SAT 97
[2023-07-31] MEDS: 0.9% Normal Saline (1000mL) 1,000 ML 125 ML IV (02:32)
[2023-07-31 05:55] VITALS: BP 139/82; PULSE 62; RESP 20; TEMP 36.6; O2SAT 98
[2023-07-31] MEDS: Acetaminophen 500 MG Tablet PO ×2 (06:00→22:52)
[2023-07-31] MEDS: Piperacil/Tazobactam 3.375 GM in 0.9% Normal Saline (50mL MB+) 50 ML IV ×2 (06:03→22:21)
[2023-07-31 06:07] LABS: Absolute Lymphocyte Count 1.72 X10^3/uL (0.83-4.51); Absolute Neutrophil Count 15.3 X10^3/uL (2.0-7.7); Basophil# 0.04 X10^3/uL; Basophil% 0.2 % (0-1); Eosinophil# 0.01 X10^3/uL; Eosinophils% 0.1 % (0-5); Hematocrit 44.8 % (40-54); Hemoglobin 13.8 g/dL (13.0-16.5); Lymphocyte # 1.72 X10^3/ul (0.83-4.51); Lymphocyte % 9.5 % (19-41); Mean Corp Hgb Conc 30.8 g/dL (32-36); Mean Corpuscular Hgb 28.8 pg (27.0-32.0); Mean Corpuscular Volume 93.3 fL (80-94); Mean Platelet Vol. 10.7 fl (6.2-12.0); Monocyte# 0.94 X10^3/uL; Monocyte% 5.2 % (0-10); NRBC Flagged by Analyzer 0 % (0-5); Neutrophil # 15.34 X10^3/uL (2.7-7.7); Neutrophil % 84.3 % (47-70); Platelet Count 184 K/mm3 (150-450); RBC Distribution Width CV 15.2 % (11.6-14.6); RBC Distribution Width SD 53.1 fl (35.1-43.9); White Blood Count 18.2 K/mm3 (4.4-11.0)
[2023-07-31 06:44] LABS: Anion Gap 4 (5-15); BUN 20 mg/dL (7-18); Calcium,Total 8.3 mg/dL (8.5-10.1); Chloride 112 mmol/L (98-107); Creatinine, Serum 1.33 mg/dL (0.70-1.30); EST Glomerular Filtration Rate 58 mL/min (>60); Est Glom Filt Rate - Afr Amer 70 mL/min (>60); Estimated Creatinine Clearance 62.12 ml/min; Glucose 97 mg/dL (74-106); Magnesium 2.5 mg/dL (1.6-2.6); Phosphorus 2.1 mg/dL (2.5-4.9); Potassium 3.7 mmol/L (3.5-5.1); Sodium Level 141 mmol/L (136-145)
[2023-07-31 08:25] VITALS: BP 129/79; PULSE 61; RESP 18; TEMP 36.8; O2SAT 98
--- NOTE | 2023-07-31 09:03 | PN.SURG_ITS ---
Subjective Subjective Patient reports he is passing flatus. He says his abdominal pain is improved from yesterday. Objective Data Objective Data Vital Signs: Vital Signs Temp Pulse Resp BP Pulse Ox O2 Del Method O2 Flow Rate 98.2 F 61 18 129/79 H 98 Room Air 2 07/31/23 08:25 07/31/23 08:25 07/31/23 08:25 07/31/23 08:25 07/31/23 08:25 07/31/23 08:25 07/29/23 18:44 Oxygen Flow Rate (L/min) 2 Oxygen Delivery Method Room Air Weight: 206 lb 2.115 oz Body Mass Index (BMI) 28.7 Intake & Output: Intake and Output for Last 24 Hours 07/29/23 07/30/23 07/31/23 23:59 23:59 23:59 Intake Total 1750 / 1850 3441.25 / 3541.25 906.25 / 906.25 Output Total 40 / 40 1290 / 1755 1005 / 1005 Balance 1710 / 1810 2151.25 / 1786.25 -98.75 / -98.75 Lab / Micro Data 07/31/23 05:57 07/31/23 05:57 Labs: Laboratory Results - last 24 hr 07/31/23 05:57: WBC 18.2 H, RBC 4.80, Hgb 13.8, Hct 44.8, MCV 93.3, MCH 28.8, M CHC 30.8 L, RDW Std Deviation 53.1 H, RDW Coeff of Tone 15.2 H, Plt Count 184, MPV 10.7, Immature Gran % (Auto) 0.700, Neut % (Auto) 84.3 H, Lymph % (Auto) 9.5 L, [place] % (Auto) 5.2, Eos % (Auto) 0.1, Baso % (Auto) 0.2, Absolute Neuts (auto) 15.3 H, Absolute Lymphs (auto) 1.72, Nucleated RBC % 0, Sodium 141, Potassium 3.7, Chloride 112 H, Carbon Dioxide 25.0, Anion Gap 4 L, BUN 20 H, Creatinine 1.33 H, Estim Creat Clear Calc 62.12, Est GFR (MDRD) Af Amer 70, Est GFR (MDRD) Non-Af 58 L, BUN/Creatinine Ratio 15.0, Glucose 97, Calcium 8.3 L, Phosphorus 2.1 L, Magnesium 2.5 Micro: Microbiology 07/29/23 16:18 Incision/Surgical Site Gram Stain - Final Physical Exam Const oriented x3 and no apparent distress Resp normal respiratory effort GI soft to palpation Palpation: tender Assessment & Plan Assessment/Plan (1) Acute perforated appendicitis: PLAN: The patient is passing some flatus. I will start a clear liquid diet. I will also resume his home medications. As long as he tolerates clear liquids I will advance his diet tomorrow and discharge him home tomorrow and remove his drain tomorrow. Viet Escalona MD Pager: [facility] [address] [place] [address], [address] [place] [address] Office:
[2023-07-31] MEDS: oxyCODONE 5 MG Tablet PO ×2 (11:40→22:52)
[2023-07-31] MEDS: amLODIPine 5 MG Tablet PO (11:41)
[2023-07-31] MEDS: DULoxetine Hcl 60 MG Capsule PO ×2 (11:41→20:37)
[2023-07-31] MEDS: Pantoprazole Sodium 40 MG in 0.9% Normal Saline (100mL MB+) 100 ML 330 MG IV (12:08)
[2023-07-31] MEDS: Potassium Phosphate 30 MM in 0.9% Normal Saline (250mL Bag) 250 ML 42 MM IV (12:55)
[2023-07-31 14:15] VITALS: BP 124/66; PULSE 62; RESP 17; TEMP 37.2; O2SAT 97
[2023-07-31] MEDS: HYDROmorphone 0.5 MG/0.5 ML SYRINGE IV (16:08)
[2023-07-31 20:30] VITALS: BP 143/80; PULSE 74; RESP 16; TEMP 36.6; O2SAT 97
[2023-07-31] MEDS: traZODone 100 MG Tablet PO (20:37)
[2023-07-31] MEDS: 0.9% Normal Saline (1000mL) 1,000 ML 40 ML IV (22:12)
[2023-07-31] MEDS: 0.9% Normal Saline (250mL Bag) 250 ML 15 ML IV (22:20)
[2023-07-31] MEDS: Atorvastatin Calcium 10 MG Tablet PO (22:27)
[2023-08-01 04:28] VITALS: BP 125/72; PULSE 74; RESP 16; TEMP 36.4; O2SAT 96
[2023-08-01] MEDS: Piperacil/Tazobactam 3.375 GM in 0.9% Normal Saline (50mL MB+) 50 ML IV (05:39)
[2023-08-01 06:09] LABS: Absolute Lymphocyte Count 2.02 X10^3/uL (0.83-4.51); Absolute Neutrophil Count 8.4 X10^3/uL (2.0-7.7); Basophil# 0.03 X10^3/uL; Basophil% 0.3 % (0-1); Eosinophils% 0.9 % (0-5); Hematocrit 38.7 % (40-54); Hemoglobin 11.8 g/dL (13.0-16.5); Lymphocyte # 2.02 X10^3/ul (0.83-4.51); Lymphocyte % 17.5 % (19-41); Mean Corp Hgb Conc 30.5 g/dL (32-36); Mean Corpuscular Hgb 28.4 pg (27.0-32.0); Mean Platelet Vol. 10.7 fl (6.2-12.0); Monocyte# 0.95 X10^3/uL; Monocyte% 8.2 % (0-10); NRBC Flagged by Analyzer 0 % (0-5); Neutrophil # 8.39 X10^3/uL (2.7-7.7); Neutrophil % 72.5 % (47-70); Platelet Count 198 K/mm3 (150-450); RBC Distribution Width CV 15.5 % (11.6-14.6); RBC Distribution Width SD 53.4 fl (35.1-43.9); Red Blood Count 4.16 M/mm3 (4.6-6.2); White Blood Count 11.6 K/mm3 (4.4-11.0)
[2023-08-01 07:30] LABS: Anion Gap 3 (5-15); BUN 17 mg/dL (7-18); BUN/Creat Ratio 14.3 RATIO (10-20); Calcium,Total 7.9 mg/dL (8.5-10.1); Chloride 114 mmol/L (98-107); Creatinine, Serum 1.19 mg/dL (0.70-1.30); EST Glomerular Filtration Rate 66 mL/min (>60); Est Glom Filt Rate - Afr Amer 80 mL/min (>60); Estimated Creatinine Clearance 69.43 ml/min; Glucose 103 mg/dL (74-106); Phosphorus 2.6 mg/dL (2.5-4.9); Potassium 3.8 mmol/L (3.5-5.1); Sodium Level 141 mmol/L (136-145)
--- NOTE | 2023-08-01 08:26 | PCM.PN.SRG ---
Subjective Subjective Patient reports he is doing well and tolerating diet and having bowel function with minimal pain Objective Data Objective Data Vital Signs: Vital Signs Temp Pulse Resp BP Pulse Ox O2 Del Method O2 Flow Rate 97.5 F L 74 16 125/72 H 96 Room Air 2 08/01/23 04:28 08/01/23 04:28 08/01/23 04:28 08/01/23 04:28 08/01/23 04:28 08/01/23 04:28 07/29/23 18:44 Oxygen Flow Rate (L/min) 2 Oxygen Delivery Method Room Air Weight: 206 lb 2.115 oz Body Mass Index (BMI) 28.7 Intake & Output: Intake and Output for Last 24 Hours 07/30/23 07/31/23 08/01/23 23:59 23:59 23:59 Intake Total 3441.25 / 3541.25 4212.08 / 4445.08 420.25 / 420.25 Output Total 1290 / 1755 1005 / 1165 240 / 240 Balance 2151.25 / 1786.25 3207.08 / 3280.08 180.25 / 180.25 Lab / Micro Data 08/01/23 05:28 08/01/23 05:28 Labs: Laboratory Results - last 24 hr 08/01/23 05:28: WBC 11.6 H, RBC 4.16 L, Hgb 11.8 L, Hct 38.7 L, MCV 93.0, MCH 28.4, MCHC 30.5 L, RDW Std Deviation 53.4 H, RDW Coeff of Tone 15.5 H, Plt Count 198, MPV 10.7, Immature Gran % (Auto) 0.600, Neut % (Auto) 72.5 H, Lymph % (Auto) 17.5 L, [place] % (Auto) 8.2, Eos % (Auto) 0.9, Baso % (Auto) 0.3, Absolute Neuts (auto) 8.4 H, Absolute Lymphs (auto) 2.02, Nucleated RBC % 0, Sodium 141, Potassium 3.8, Chloride 114 H, Carbon Dioxide 24.0, Anion Gap 3 L, BUN 17, Creatinine 1.19, Estim Creat Clear Calc 69.43, Est GFR (MDRD) Af Amer 80, Est GFR (MDRD) Non-Af 66, BUN/Creatinine Ratio 14.3, Glucose 103, Calcium 7.9 L, Phosphorus 2.6 Micro: Microbiology 07/29/23 16:18 Incision/Surgical Site Gram Stain - Final 07/29/23 16:18 Incision/Surgical Site Wound Culture - Final Klebsiella pneumoniae sp pneum Physical Exam Const oriented x3 and no apparent distress Resp normal respiratory effort GI normal to inspection, nondistended, normoactive bowel sounds Assessment & Plan Assessment/Plan (1) Acute perforated appendicitis: PLAN: The patient is doing well this morning and tolerating a diet. His white count is coming down nicely. I have resumed his Xarelto. I removed his drain this morning and I will discharge him home on oral antibiotics. Viet Escalona MD Pager: [facility] [address] [place] [address], [address] [place] [address] Office:
--- NOTE | 2023-08-01 08:27 | DS.PCM_ITS ---
Providers Date of Admission: 07/30/23 Primary Care Physician: Dr. Roberto Dowling MD Reason For Visit: ACUTE APPENDICITIS Diagnosis Discharge Diagnosis (1) Acute perforated appendicitis: Status: Acute Code(s): K35.32 - Acute appendicitis with perforation, localized peritonitis, and gangrene, without abscess Plan: The patient is doing well this morning and tolerating a diet. His white count is coming down nicely. I have resumed his Xarelto. I removed his drain this morning and I will discharge him home on oral antibiotics. Viet Escalona MD Pager: [facility] [address] [place] [address], [address] [place] [phone] Office: Medications at Discharge Home Medications lidocaine 5 % topical patch 1 - 3 patch transdermal Q12H PAIN 12/10/21 lorazepam 0.5 mg tablet 0.25 mg PO DAILY PRN Anxiety 12/10/21 amlodipine 5 mg tablet 5 mg PO DAILY 07/29/23 duloxetine 30 mg capsule,delayed release 60 mg PO QHS 07/29/23 duloxetine 60 mg capsule,delayed release 60 mg PO .MORNING 07/29/23 rivaroxaban 20 mg tablet (Xarelto) 20 mg PO QHS blood thinner 07/31/23 rosuvastatin 5 mg tablet 5 mg PO QHS hld 07/31/23 trazodone 50 mg tablet 100 mg PO .HS sleep 07/31/23 acetaminophen 500 mg tablet 500 mg PO Q6H PRN PRN Pain Score 1-10 #0 tabs 08/01/23 ciprofloxacin HCl 500 mg tablet 500 mg PO BID 5 days #10 tabs 08/01/23 metronidazole 500 mg tablet 500 mg PO TID 5 days #15 tabs 08/01/23 oxycodone 5 mg tablet 5 - 10 mg (1 - 2 x 5 mg) PO Q4H PRN PRN Pain Score 4-10 5 days #20 tabs 08/01/23 Hospital Course Operations appendectomy Summary of Care Provided Hospital Course: Patient was admitted with right lower quadrant pain and was taken for surgery. Patient had perforated appendicitis. After appendectomy and drain was placed and the patient was placed back on the floor. Once the patient was tolerating a diet he was discharged home. Weight / BMI Weight Weight: 206 lb 2.115 oz Body Mass Index (BMI) 28.7 ABG / Lab / Microbiology Data 08/01/23 05:28 08/01/23 05:28 Laboratory: Laboratory Results - last 24 hr 08/01/23 05:28: WBC 11.6 H, RBC 4.16 L, Hgb 11.8 L, Hct 38.7 L, MCV 93.0, MCH 28.4, MCHC 30.5 L, RDW Std Deviation 53.4 H, RDW Coeff of Tone 15.5 H, Plt Count 198, MPV 10.7, Immature Gran % (Auto) 0.600, Neut % (Auto) 72.5 H, Lymph % (Auto) 17.5 L, [place] % (Auto) 8.2, Eos % (Auto) 0.9, Baso % (Auto) 0.3, Absolute Neuts (auto) 8.4 H, Absolute Lymphs (auto) 2.02, Nucleated RBC % 0, Sodium 141, Potassium 3.8, Chloride 114 H, Carbon Dioxide 24.0, Anion Gap 3 L, BUN 17, Creatinine 1.19, Estim Creat Clear Calc 69.43, Est GFR (MDRD) Af Amer 80, Est GFR (MDRD) Non-Af 66, BUN/Creatinine Ratio 14.3, Glucose 103, Calcium 7.9 L, Phosphorus 2.6 Microbiology: Microbiology 07/29/23 16:18 Incision/Surgical Site Gram Stain - Final 07/29/23 16:18 Incision/Surgical Site Wound Culture - Final Klebsiella pneumoniae sp pneum D/C Instructions Discharge Diet: Light diet - advance as tolerated Discharge Activity: May Not Drive (for 2-3 days or while taking narcotic pain medications) May shower in (days): 1 Call your doctor if your incision/area has: Continuous Slow Oozing, Sudden Increased Bleeding, Increased Pain/ Swelling, Increased Redness and Foul Smelling Discharge Call your doctor if you observe: Fever of 101 or Higher Suture Line Care: Avoid Pulling/Pushing and Avoid Pinching/Bending Remove Dressing in: 2 days Cleanse incision/area with: Soap & Water Additional Instructions: Keep dressing clean and dry. Change or remove dressing in 2 days. Leave steri strips for 1 week. May protect with a gauze bandaid. Please Follow Up With: Gautam Calixto MD When: Please call to schedule 1 week follow up appointment at [phone] Meaningful Use Info Meaningful Use Diagnoses (Choose all that apply): None applicable Discharge Plan Admission Admit Date/Time: 07/30/23 15:16 Attending Provider: Gautam Calixto Primary Care Provider: Roberto Dowling Discharge Orders/Prescriptions Prescriptions: New acetaminophen 500 mg Tablet 500 mg PO Q6H PRN PRN (Reason: Pain Score 1-10) Qty: 0 0RF oxycodone 5 mg Tablet 5 - 10 mg PO Q4H PRN PRN (Reason: Pain Score 4-10) 5 Days Qty: 20 0RF ciprofloxacin HCl 500 mg tablet 500 mg PO BID 5 Days Qty: 10 0RF metronidazole 500 mg tablet 500 mg PO TID 5 Days Qty: 15 0RF Continued lorazepam 0.5 mg tablet 0.25 mg PO DAILY PRN (Reason: Anxiety) lidocaine 5 % adhesive patch,medicated 1 - 3 patch transdermal Q12H Patient Comments: PT STATES MAY USE UP TO 3 PATCHES IN A 12 HOUR PERIOD. amlodipine 5 mg tablet 5 mg PO DAILY duloxetine 60 mg capsule,delayed release(DR/EC) 60 mg PO .MORNING duloxetine 30 mg capsule,delayed release(DR/EC) 60 mg PO QHS trazodone 50 mg tablet 100 mg PO .HS rosuvastatin 5 mg tablet 5 mg PO QHS Xarelto 20 mg tablet 20 mg PO QHS Referrals / Follow Up: Roberto Dowling MD [Primary Care Provider] - Disposition Disposition (needs filled in before D/C Order can be placed): Home, Self Care
[2023-08-01] MEDS: oxyCODONE 5 MG Tablet PO ×2 (09:12→13:12)
[2023-08-01] MEDS: DULoxetine Hcl 60 MG Capsule PO (09:13)
[2023-08-01] MEDS: amLODIPine 5 MG Tablet PO (09:13)
[2023-08-01] MEDS: Pantoprazole Sodium 40 MG in 0.9% Normal Saline (100mL MB+) 100 ML 330 MG IV (10:04)
[2023-08-01 10:20] VITALS: BP 121/74; PULSE 75; RESP 16; TEMP 36.8; O2SAT 98
[2023-08-01] MEDS: 0.9% Saline Lock 10 ML Syringe IV (11:06)
[2023-08-01 12:50] VITALS: BP 126/71; PULSE 83; RESP 18; TEMP 36.8; O2SAT 98
[2023-08-02 10:01] LABS: Pathologist Review Reviewed
== END 2023-08-01 13:29 | disposition home or self-care (01) | DRG 224 ==
LOC: ED 10:50 → SDC 14:13 → AC 14:14 → MS3 15:09 → SDC 15:53 → MS3 15:53
PROVIDERS: Surgery; Admitting Provider Surgery; Emergency Provider Emergency Medicine; PCP Family Medicine; Visit Provider Surgery
PROC: 0DTJ4ZZ Resection of Appendix, Percutaneous Endoscopic Approach (ICD-10-PCS; CPT 44970; principal; 2023-07-29 15:50)
DX: K35.33 Acute appendicitis with perforation, localized peritonitis, and gangrene, with abscess (principal); F17.290 Nicotine dependence, other tobacco product, uncomplicated; K66.0 Peritoneal adhesions (postprocedural) (postinfection); R33.9 Retention of urine, unspecified; Z79.01 Long term (current) use of anticoagulants; Z79.899 Other long term (current) drug therapy; Z86.711 Personal history of pulmonary embolism
CPT/HCPCS: 36415; 74177; 80048; 80076; 81001; 83690; 83735; 84100; 85025; 85610; 85730; 87070; 87075; 87077; 87186; 87205; 88304; 93005; 94668; 99252; 99285; J7030; J7050; J7120; Q9967; A4216; G0463; J2405

== ENCOUNTER → 2023-09-30 | Outpatient (CLI) | payer MEDICAID, SELFPAY ==
[2023-09-30 12:53] LABS: Cholesterol 162 mg/dL (200); High Density Lipoprotein 69 mg/dL; Triglycerides 75 mg/dL; Very Low Density Lipoprotein 15 mg/dL (5-40)
== END | disposition home or self-care (01) ==
LOC: BFHLAB 10:38
PROVIDERS: PCP Family Medicine; Visit Provider Family Medicine
DX: E78.5 Hyperlipidemia, unspecified (principal)
CPT/HCPCS: 36415; 80061

== ENCOUNTER → 2024-09-25 | Outpatient (CLI) | payer MEDICAID, SELFPAY ==
[2024-09-25 17:36] LABS: Absolute Lymphocyte Count 2.26 X10^3/uL (0.83-4.51); Absolute Neutrophil Count 8.2 X10^3/uL (2.0-7.7); Basophil# 0.07 X10^3/uL; Basophil% 0.6 % (0-1); Eosinophil# 0.21 X10^3/uL; Eosinophils% 1.8 % (0-5); Hematocrit 49.5 % (40-54); Hemoglobin 15.2 g/dL (13.0-16.5); Lymphocyte # 2.26 X10^3/ul (0.83-4.51); Lymphocyte % 19.4 % (19-41); Mean Corp Hgb Conc 30.7 g/dL (32-36); Mean Corpuscular Hgb 26.3 pg (27.0-32.0); Mean Corpuscular Volume 85.6 fL (80-94); Mean Platelet Vol. 10.8 fl (6.2-12.0); Monocyte# 0.89 X10^3/uL; Monocyte% 7.7 % (0-10); NRBC Flagged by Analyzer 0 % (0-5); Neutrophil # 8.15 X10^3/uL (2.7-7.7); Neutrophil % 70.1 % (47-70); Platelet Count 197 K/mm3 (150-450); RBC Distribution Width CV 19.7 % (11.6-14.6); RBC Distribution Width SD 59.2 fl (35.1-43.9); Red Blood Count 5.78 M/mm3 (4.6-6.2); White Blood Count 11.6 K/mm3 (4.4-11.0)
[2024-09-25 19:10] LABS: ALB/GLOB Ratio 0.8 RATIO (0.9-2.4); AST(SGOT) 31 U/L (15-37); Alanine Aminotransfer ALT/SGPT 34 U/L (16-61); Albumin, Serum 3.4 g/dL (3.2-5.0); Alkaline Phosphatase 101 U/L (45-117); Anion Gap 5 (5-15); BUN 10 mg/dL (7-18); BUN/Creat Ratio 7.3 RATIO (10-20); Calcium,Total 9.1 mg/dL (8.5-10.1); Chloride 107 mmol/L (98-107); Cholesterol 119 mg/dL (200); Creatinine, Serum 1.37 mg/dL (0.70-1.30); EST Glomerular Filtration Rate 56 mL/min (>60); Est Glom Filt Rate - Afr Amer 68 mL/min (>60); Globulin 4.2 g/dL (2.2-4.2); Glucose 85 mg/dL (74-106); High Density Lipoprotein 75 mg/dL; Potassium 4.2 mmol/L (3.5-5.1); Protein, Total 7.6 g/dL (6.4-8.2); Sodium Level 137 mmol/L (136-145); Triglycerides 53 mg/dL; Very Low Density Lipoprotein 11 mg/dL (5-40)
== END | disposition home or self-care (01) ==
LOC: BFHLAB 14:55
PROVIDERS: PCP Nurse Practitioner Family; Referring Provider Nurse Practitioner Family; Visit Provider Nurse Practitioner Family
DX: Z00.01 Encounter for general adult medical examination with abnormal findings (principal)
CPT/HCPCS: 36415; 80053; 80061; 85025

== ENCOUNTER → 2025-02-05 | Outpatient (CLI) | payer MEDICAID, SELFPAY ==
[2025-02-05 15:14] LABS: Absolute Lymphocyte Count 1.97 X10^3/uL (0.83-4.51); Absolute Neutrophil Count 7.5 X10^3/uL (2.0-7.7); Basophil# 0.07 X10^3/uL; Basophil% 0.7 % (0-1); Eosinophil# 0.16 X10^3/uL; Eosinophils% 1.5 % (0-5); Hematocrit 49.9 % (40-54); Hemoglobin 16.4 g/dL (13.0-16.5); Lymphocyte # 1.97 X10^3/ul (0.83-4.51); Lymphocyte % 18.6 % (19-41); Mean Corp Hgb Conc 32.9 g/dL (32-36); Mean Corpuscular Hgb 30.4 pg (27.0-32.0); Mean Corpuscular Volume 92.6 fL (80-94); Mean Platelet Vol. 11.3 fl (6.2-12.0); Monocyte# 0.82 X10^3/uL; Monocyte% 7.8 % (0-10); NRBC Flagged by Analyzer 0 % (0-5); Neutrophil % 70.8 % (47-70); Platelet Count 180 K/mm3 (150-450); RBC Distribution Width CV 14.5 % (11.6-14.6); RBC Distribution Width SD 49.1 fl (35.1-43.9); Red Blood Count 5.39 M/mm3 (4.6-6.2); White Blood Count 10.6 K/mm3 (4.4-11.0)
[2025-02-05 16:42] LABS: Cholesterol 129 mg/dL (<=200); High Density Lipoprotein 75 mg/dL; Low Density Lipoprotein Calc. 41 mg/dL; Triglycerides 63 mg/dL; Very Low Density Lipoprotein 13 mg/dL (5-40); cholesterol:hdl ratio screen 1.71
[2025-02-05 16:48] LABS: ALB/GLOB Ratio 1.2 RATIO (0.9-2.4); AST(SGOT) 32 U/L (<=37); Alanine Aminotransfer ALT/SGPT 23 U/L (<=46); Albumin, Serum 4.1 g/dL (3.4-4.8); Alkaline Phosphatase 92 U/L (40-129); Anion Gap 10 (5-15); BUN 11 mg/dL (4-19); BUN/Creat Ratio 7.6 RATIO (10-20); Carbon Dioxide 23.2 mmol/L (21.0-32.0); Chloride 104 mmol/L (98-108); Creatinine, Serum 1.44 mg/dL (0.70-1.20); EST Glomerular Filtration Rate 55 (>60); Globulin 3.4 g/dL (2.2-4.2); Glucose 88 mg/dL (70-99); Potassium 4.4 mmol/L (3.3-5.1); Protein, Total 7.5 g/dL (5.9-8.4); Sodium Level 137 mmol/L (133-145); Total Bilirubin 0.52 mg/dL (0.00-1.30)
== END | disposition home or self-care (01) ==
LOC: MTLAB 12:51
PROVIDERS: PCP Nurse Practitioner Family; Referring Provider Internal Medicine; Visit Provider Internal Medicine
DX: I26.02 Saddle embolus of pulmonary artery with acute cor pulmonale (principal); I10 Essential (primary) hypertension; E78.00 Pure hypercholesterolemia, unspecified
CPT/HCPCS: 36415; 80053; 80061; 85025

== ENCOUNTER → 2025-08-07 | Outpatient (CLI) | payer MEDICAID, SELFPAY ==
--- NOTE | 2025-08-07 13:30 | MRI_ITS ---
PROCEDURE: BRAIN W/WO CONTRAST 08/07/2025 REASON FOR EXAM: SENSORINEURAL HEARING LOSS, LEFT EAR TECHNIQUE: Procedure Code: [id number] Modality: MR Procedure: BRAIN W/WO CONTRAST Multiplanar and multisequence images were obtained. CONTRAST: Clariscan VOLUME: 17 mL COMPARISON: none FINDINGS: No acute or hyperacute infarcts. No intracerebral or extra-axial hematomas. No obvious enhancing masses. Bilateral cerebral periventricular and subcortical white matter high T2/FLAIR WI signal. Normal MRI signal of the cerebellar hemispheres and brain stem. Dilated ventricular system, cortical sulci and extra-axial CSF spaces. No shift of midline structures. Normal & comparable sizes of the seventh and eighth cranial nerves on both sides. No obvious related masses. No cerebello-pontine angle masses detected. The examined mastoid air cells are clear. Normal appearance of the semicircular canals, vestibules and cochlea on both sides. Normal MRI appearance of orbital structures, both globes, optic nerves, optic chiasm, optic tracts and optic radiations. Scanned paranasal sinuses show left maxillary mucous retention cyst. MRI/Brain W/WO Contrast IMPRESSION: Unremarkable study of the petrous bones. No acute infarcts. No intracerebral or extra-axial hematomas. No enhancing mass es. Mild bilateral cerebral microvascular ischemic changes. Brain involutional changes. Reading [facility]
--- NOTE | 2025-08-07 13:30 | MRI_ITS ---
PROCEDURE: BRAIN W/WO CONTRAST 08/07/2025 REASON FOR EXAM: SENSORINEURAL HEARING LOSS, LEFT EAR TECHNIQUE: Procedure Code: [id number] Modality: MR Procedure: BRAIN W/WO CONTRAST Multiplanar and multisequence images were obtained. CONTRAST: Clariscan VOLUME: 17 mL COMPARISON: none FINDINGS: No acute or hyperacute infarcts. No intracerebral or extra-axial hematomas. No obvious enhancing masses. Bilateral cerebral periventricular and subcortical white matter high T2/FLAIR WI signal. Normal MRI signal of the cerebellar hemispheres and brain stem. Dilated ventricular system, cortical sulci and extra-axial CSF spaces. No shift of midline structures. Normal & comparable sizes of the seventh and eighth cranial nerves on both sides. No obvious related masses. No cerebello-pontine angle masses detected. The examined mastoid air cells are clear. Normal appearance of the semicircular canals, vestibules and cochlea on both sides. Normal MRI appearance of orbital structures, both globes, optic nerves, optic chiasm, optic tracts and optic radiations. Scanned paranasal sinuses show left maxillary mucous retention cyst. MRI/Brain W/WO Contrast IMPRESSION: Unremarkable study of the petrous bones. No acute infarcts. No intracerebral or extra-axial hematomas. No enhancing mass es. Mild bilateral cerebral microvascular ischemic changes. Brain involutional changes. Reading [facility]
== END | disposition home or self-care (01) ==
LOC: MRI 13:24
PROVIDERS: PCP Nurse Practitioner Family
DX: H90.3 Sensorineural hearing loss, bilateral (principal)
CPT/HCPCS: 70553; A9575; A4216

== ENCOUNTER → 2025-10-23 | Outpatient (CLI) | payer MEDICAID, SELFPAY ==
--- NOTE | 2025-10-23 12:49 | CT_ITS ---
PROCEDURE: LIMITED CHEST CT CARDIAC ONLY 10/23/2025 REASON FOR EXAM: HYPERLIPIDEMIA, UNSPECIFIED TECHNIQUE: Procedure Code: [id number] Modality: CT Procedure: LIMITED CHEST CT CARDIAC ONLY One or more dose reduction techniques were used (e.g., Automated exposure control, adjustment of the mA and/or kV according to patient size, use of iterative reconstruction technique). RADIATION DOSE SUMMARY: CTDlvol: 12.19 mGy DLP: 268.17 mGycm COMPARISON: Chest CT angiogram of 12/15/2021 CT/Limited Chest CT Cardiac Only IMPRESSION: Limited imaging of the lungs demonstrates no significant acute process. No pleural effusion or pneumothorax is seen in visualized areas. No adenopathy is noted. The visualized upper abdomen demonstrates no significant abnormality. Reading Location: [place] [id number]
--- NOTE | 2025-10-28 18:06 | CA.SCORE ---
Calcium Scoring Date of Study:: 10/23/25 Indications Indications: HLD Coronary Calcium Scoring: High-resolution Computed Tomographic imaging of the chest was performed on [10/23/25 ], with particular attention paid to the coronary arteries. Images from the examination were analyzed for the presence and extent of coronary artery calcification , using coronary calcium quantification software. The patient tolerated the procedure well and there were no complications. The results of the coronary calcification analysis are provided below. Findings Coronary Artery Left Main (LM): 0 Left Anterior Descending (LAD): 10.8 Left Circumflex (LCX): 14.4 Right Coronary Artery (RCA): 142 Total Agatston Score: 167.2 Percentile Rankin-75 Calcium Scoring Interpretation: Different methods to categorize the overall amount of coronary plaque. Overall amount CAC SIS Visual of coronary plaque P1 Mild -100 <2 1-2 vessels with mild amount of plaque P2 Moderate 101-300 3-4 1-2 vessels with moderate amount, 3 vessels with mild amount of plaque P3 Severe 301-999 5-7 3 vessels with moderate amount, 1 vessel with severe amount of plaque P4 Extensive >1000 >8 2-3 vessels with severe amount of plaque Calcium Score: Moderate: 1-2 vessels w/moderate amt, 3 vessels w/mild amt of plaque Conclusion: Mild 3 vessel disease
== END | disposition home or self-care (01) ==
LOC: CT 12:47
PROVIDERS: PCP Nurse Practitioner Family; Referring Provider Nurse Practitioner Family; Visit Provider Nurse Practitioner Family
DX: E78.5 Hyperlipidemia, unspecified (principal)
CPT/HCPCS: 75571; 76380